=== PATIENT | male | born 1960 | race Hispanic/Latino ===

== ENCOUNTER 2018-04-23 17:30 | Emergency (ER) | payer BC, OTHER ==
--- NOTE | 2018-04-23 18:27 | ED PDOC ---
Arrival/HPI - General Chief Complaint: Bite Time Seen by Provider: 04/23/18 17:59 Historian: Patient - History of Present Illness Narrative History of Present Illness (Text): 04/23/18 18:20 A 57 year old male, whose past medical history includes scoliosis and left hip replacement, presents to the emergency department complaining of dog bites from approximately 2 days ago. Patient reports his dog was snapping at him. He slapped dog, and it bit him onto the right elbow 2 1/2 days ago, and the left foot 2 days ago. States he has had dog bites in the past and was last prescribed an ointment to heal wounds. Also, patient mentions a separate symptom of right buttock pain, requesting to be given Amoxicillin for pain. Notes he has not had an X-ray performed to check for any issues to location of pain. Patient denies any other complaints at this time. No PMD Past Medical History - Provider Review Nursing Documentation Reviewed: Yes - Cardiac Hx Cardiac Disorders: No - Pulmonary Hx Respiratory Disorders: No - Neurological Hx Neurological Disorder: No - HEENT Hx HEENT Disorder: No - Renal Hx Renal Disorder: No - Endocrine/Metabolic Hx Endocrine Disorders: No - Hematological/Oncological Hx Blood Disorders: No - Integumentary Hx Dermatological Disorder: No - Musculoskeletal/Rheumatological Hx Back Pain: Yes - Gastrointestinal Hx Gastrointestinal Disorders: No - Genitourinary/Gynecological Hx Genitourinary Disorders: No - Psychiatric Hx Substance Use: No - Surgical History Other/Comment: Lt Hip replacement - Anesthesia Hx Anesthesia: Yes Hx Anesthesia Reactions: Yes Family/Social History - Physician Review Nursing Documentation Reviewed: Yes Family/Social History: No Known Family HX Smoking Status: Former Smoker Hx Alcohol Use: Yes Frequency of alcohol use: Socially Hx Substance Use: No Allergies/Home Meds Allergies/Adverse Reactions: Allergies succinylcholine Allergy (Verified 04/23/18 18:02) PAIN Review of Systems - Physician Review All systems were reviewed & negative as marked: Yes - Review of Systems Constitutional: absent: Fevers Eyes: Normal ENT: Normal Respiratory: Normal Cardiovascular: Normal Gastrointestinal: Normal Genitourinary Male: Normal Musculoskeletal: Arthralgias. absent: Normal (r hip) Skin: Laceration (left foot and right elbow) Neurological: Normal Endocrine: Normal Hemo/Lymphatic: Normal Psychiatric: Normal Physical Exam Vital Signs Reviewed: Yes Vital Signs Temp Pulse Resp BP Pulse Ox 04/23/18 17:30 98 F 90 18 142/93 H 96 Temperature: Afebrile Blood Pressure: Normal Pulse: Regular Respiratory Rate: Normal Appearance: Positive for: Well-Appearing, Non-Toxic, Comfortable Pain Distress: None Mental Status: Positive for: Alert and Oriented X 3 - Systems Exam Head: Present: Atraumatic, Normocephalic Pupils: Present: PERRL Extroacular Muscles: Present: EOMI Conjunctiva: Present: Normal Neck: Present: Normal Range of Motion Respiratory/Chest: Present: Clear to Auscultation, Good Air Exchange. No: Respiratory Distress, Accessory Muscle Use Cardiovascular: Present: Regular Rate and Rhythm, Normal S1, S2. No: Murmurs Abdomen: No: Tenderness, Distention, Peritoneal Signs Upper Extremity: Present: Erythema (mild erythema to right elbow), Other (right elbow superficial laceration 1 cm by 2 cm, no tracking) Lower Extremity: Present: Erythema (mild erythema to left foot), Neurovascularly Intact, Other (laceration to dorsal aspect of left foot 2 cm by 1 cm, no visible tendons, no tracking; right leg bandaged from previous surgery ; right buttock point tenderness.) Neurological: Present: GCS=15, CN II-XII Intact, Speech Normal Skin: Present: Warm, Dry, Normal Color. No: Rashes Psychiatric: Present: Alert, Oriented x 3, Normal Insight, Normal Concentration Medical Decision Making ED Course and Treatment: 04/23/18 18:24 Impression: 57 year old male with dog bites to right elbow and left foot. Physical examination shows right elbow superficial laceration 1 cm by 2 cm, no tracking, mild erythema; abrasion to dorsal aspect of left foot 2 cm by 1 cm, no tracking. Pt notes dog has had full vaccinations including rabies. Right leg bandaged from previous surgery w/ good n/v status b/l, right buttock point tenderness. No cauda equina symptoms, no DM2 or drug use. Plan: -- Right Hip X-Ray -- Tylenol -- Reassess and disposition Progress Notes: Xray unremarkable, Pt walking well in NAD With VSS. clear for d/c home with followup and abx 04/23/18 23:53 - RAD Interpretation Radiology Orders: 04/23/18 18:23 Hip Right [HIP MIN 2V W/ PELVIS RT] [RAD] Stat - Medication Orders Current Medication Orders: Discontinued Medications Acetaminophen (Tylenol 325mg Tab) 650 mg PO STAT STA Stop: 04/23/18 18:25 Last Admin: 04/23/18 18:47 Dose: 650 mg MAR Pain/Vitals Document 04/23/18 18:47 LA (Rec: 04/23/18 18:48 LA [id number]) Pain Reassessment Is This A Pain ReAssessment? No Sleep Is patient sleeping during reassessment? No Presence of Pain Presence of Pain Yes Pain Scale Used Pain Scale Used Numeric Location Left, Right or Bilateral Right Pain Location Body Site Toe Pain Behavior Guarding - Scribe Statement The provider has reviewed the documentation as recorded by the Scribe Alysa Arambula Provider Scribe Attestation: All medical record entries made by the Scribe were at my direction and personally dictated by me. I have reviewed the chart and agree that the record accurately reflects my personal performance of the history, physical exam, medical decision making, and the department course for this patient. I have also personally directed, reviewed, and agree with the discharge instructions and disposition. Disposition/Present on Arrival - Present on Arrival Any Indicators Present on Arrival: No History of DVT/PE: No History of Uncontrolled Diabetes: No Urinary Catheter: No History of Decub. Ulcer: No History Surgical Site Infection Following: None - Disposition Have Diagnosis and Disposition been Completed?: Yes Diagnosis: Dog bite Disposition: HOME/ ROUTINE Disposition Time: 19:30 Patient Problems: Current Active Problems Problem Status Onset Dog bite Acute Condition: GOOD Discharge Instructions (ExitCare): Animal Bites (DC), Hip Pain Additional Instructions: [place]IR[place] LEON, thank you for letting us take care of you today. Your provider was Pantera Quiros and you were treated for DOG BITE. The emergency medical care you received today was directed at your acute symptoms. If you were prescribed any medication, please fill it and take as directed. It may take several days for your symptoms to resolve. Return to the Emergency Department if your symptoms worsen, do not improve, or if you have any other problems. Please contact your doctor or call one of the physicians/clinics you have been referred to that are listed on the Patient Visit Information form that is included in your discharge packet. Bring any paperwork you were given at discharge with you along with any medications you are taking to your follow up visit. Our treatment cannot replace ongoing medical care by a primary care provider outside of the emergency department. Thank you for allowing the [facility] team to be part of your care today. If you had an X-Ray or CT scan: A Radiologist will review the ED reading if any change in treatment is needed we will contact you. If you had a blood, urine, or wound culture: It will take several days for the results, if any change in treatment is needed we will contact you. If you had an STI test: It will take 48 hours for the results. Please call after 1 week if you have not heard back. Prescriptions: Amoxicillin/Clavulanate [Augmentin 875 MG-125 MG] 1 tab PO BID 7 Days #14 tab Forms: byyd (Yoruba)
[2018-04-23 18:30] VITALS: RESP 18; TEMP 98; BMI 28.8
[2018-04-24 01:08] VITALS: BP 130/78; PULSE 78; O2SAT 98
--- NOTE | 2018-04-24 10:43 | RAD ---
PROCEDURE: Right Hip Radiographs. HISTORY: right hip pain COMPARISON: None. FINDINGS: BONES: The pelvic ring is intact. No acute displaced fracture or dislocation. JOINTS: There is severe degenerative osteoarthrosis in the right hip joint with near complete loss of joint space and subarticular cystic changes. Status post left hip arthroplasty. SOFT TISSUES: Normal. OTHER FINDINGS: None. IMPRESSION: No acute displaced fracture or dislocation. Severe degenerative osteoarthrosis in the right hip joint.
== END 2018-04-23 20:25 | disposition home or self-care (01) ==
LOC: ED 17:30
DX: S51.051A Open bite, right elbow, initial encounter (principal); W54.0XXA Bitten by dog, initial encounter; Z87.891 Personal history of nicotine dependence

== ENCOUNTER 2018-05-05 16:22 | Inpatient (IN) | payer BC ==
[2018-05-05 16:23] VITALS: BMI 28.8
[2018-05-05] MEDS ORDERED: Morphine 4 mg/ml ISec IVP STA (16:52)
[2018-05-05] MEDS ORDERED: Sodium Chloride 0.9% 1,000 ML IV STA (16:52)
[2018-05-05 17:54] LABS: BASO # 0.02 K/mm3 (0.0-2.0); BASO % 0.1 % (0.0-3.0); EOS # 0.1 (0.0-0.7); EOS % 0.3 % (1.5-5.0); GRAN # 15.07 (1.4-6.5); GRAN % 84.2 % (50.0-68.0); HEMOGLOBIN 15.4 g/dL (14.0-18.0); LYMPH % 5.5 % (22.0-35.0); MEAN CELL VOLUME 82.7 fl (80.0-105.0); MEAN CORPUSCULAR HGB CONC 36.2 g/dl (31.0-37.0); MEAN PLATELET VOLUME 9.6 fl (7.0-11.0); MONO # 1.8 (0.1-0.6); MONO % 9.9 % (1.0-6.0); RBC 5.14 10^6/uL (3.5-6.1); RED CELL DISTRIBUTION WIDTH 13.2 % (11.5-14.5); WHITE BLOOD COUNT 17.9 10^3/ul (4.5-11.0)
[2018-05-05 18:15] LABS: ALB/GLOB RATIO 1.3 (1.1-1.8); ALBUMIN 4.3 g/dL (3.0-4.8); ALT/SGPT 54 U/L (7-56); AST/SGOT 37 U/L (17-59); BLOOD UREA NITROGEN 18 mg/dL (7-21); CALCIUM 9.1 mg/dL (8.4-10.5); GFR NON-AFRICAN AMERICAN > 60
[2018-05-05] MEDS ORDERED: Piperacill/Tazo 4.5gm in NS 4.5 GM/100 ML BAG IVPB STA (18:34)
--- NOTE | 2018-05-05 19:09 | ED PDOC ---
Arrival/HPI - General Chief Complaint: Lower Extremity Problem/Injury Time Seen by Provider: 05/05/18 16:23 Historian: Patient - History of Present Illness Narrative History of Present Illness (Text): 05/05/18 19:07 57 y/o M w/ h/o L hip replacement and recent R knee arthroscopy([facility]) presents to the ED for persistent R knee pain. The patient states he noted pain with active extension and weightbearing. The patient reports having recent right knee arthroscopy at [facility] which he was discharged yesterday. The patient reports feeling a palpable cord in his popliteal fossa as well as noted erythema and purulent discharge from his left thigh. He reports taking large doses of NSAIDs with minimal relief. He reports intermittent chills. He denies chest pain, shortness of breath, abdominal pain, back pain, weakness, numbness, syncopal episodes, or dizziness. PCP: None Time/Duration: Prior to Arrival Symptom Onset: Sudden Symptom Course: Intermittent Severity Level: Severe Activities at Onset: Rest Context: Home Past Medical History - Provider Review Nursing Documentation Reviewed: Yes - Travel History Have you recently traveled outside [place] w/in the past 3 mons?: No - Infectious Disease Hx of Infectious Diseases: None - Cardiac Hx Cardiac Disorders: No - Pulmonary Hx Respiratory Disorders: No - Neurological Hx Neurological Disorder: No - HEENT Hx HEENT Disorder: No - Renal Hx Renal Disorder: No - Endocrine/Metabolic Hx Endocrine Disorders: No - Hematological/Oncological Hx Blood Disorders: No - Integumentary Hx Dermatological Disorder: No - Musculoskeletal/Rheumatological Hx Back Pain: Yes - Gastrointestinal Hx Gastrointestinal Disorders: No - Genitourinary/Gynecological Hx Genitourinary Disorders: No - Psychiatric Hx Substance Use: No - Surgical History Other/Comment: Lt Hip replacement - Anesthesia Hx Anesthesia: Yes Hx Anesthesia Reactions: Yes Family/Social History - Physician Review Nursing Documentation Reviewed: Yes Family/Social History: Unknown Family HX Smoking Status: Former Smoker Hx Alcohol Use: Yes Hx Substance Use: No Allergies/Home Meds Allergies/Adverse Reactions: Allergies succinylcholine Allergy (Verified 04/23/18 18:02) PAIN Review of Systems - Physician Review All systems were reviewed & negative as marked: Yes - Review of Systems Musculoskeletal: Arthralgias, Joint Swelling, Myalgias. absent: Back Pain, Neck Pain Neurological: absent: Headache, Dizziness, Focal Weakness Physical Exam Vital Signs Temp Pulse Resp BP Pulse Ox 05/05/18 18:09 98.3 F 99 H 18 132/79 96 Temperature: Afebrile Blood Pressure: Normal Pulse: Regular Respiratory Rate: Normal Appearance: Positive for: Well-Appearing, Non-Toxic, Uncomfortable Pain Distress: Moderate Mental Status: Positive for: Alert and Oriented X 3 - Systems Exam Head: Present: Atraumatic, Normocephalic Mouth: Present: Moist Mucous Membranes Neck: Present: Normal Range of Motion. No: Meningeal Signs, MIDLINE TENDERNESS Respiratory/Chest: Present: Clear to Auscultation, Good Air Exchange. No: Respiratory Distress Cardiovascular: Present: Normal S1, S2, Tachycardic Abdomen: Present: Normal Bowel Sounds. No: Tenderness, Distention, Peritoneal Signs Upper Extremity: Present: Normal Inspection, Normal ROM, NORMAL PULSES Lower Extremity: Present: Edema, Tenderness, Swelling (edema to anterolateral knee ), Neurovascularly Intact. No: CALF TENDERNESS, Cyanosis Neurological: Present: GCS=15, CN II-XII Intact, Speech Normal Skin: Present: Warm, Dry, Other (Multiple excoriations noted to L thigh w/ purulent discharge) Medical Decision Making ED Course and Treatment: 05/05/18 19:17 Impression 57 y/o M w/ h/o R knee arthroscopy w/ R knee pain Differential Includes But Is Not Limited To: Septic Joint Meniscus Tear Sepsis Plan --Labs --CT extremity --CXR --Morphine --Zosyn --Reassess and disposition Progress Notes 05/05/18 19:18 Labs reviewed with leukocytosis of 17 noted and hyponatremia of 127 noted. Zosyn ordered. Patient is asleep in room with no acute complaints. Spoke to Dr. Shirley who accepts the patient onto his service. He requests Dr. Hansen(infectious disease) consulted. CT extremity pending. - Lab Interpretations Lab Results: 05/05/18 17:20 05/05/18 17:20 Lab Results 05/05/18 17:20: D-Dimer, Quantitative 584 H 05/05/18 17:20: Sodium 127 L, Potassium 4.1, Chloride 104, Carbon Dioxide 26, Anion Gap 2 L, BUN 18, Creatinine 0.6 L, Est GFR ( Amer) > 60, Est GFR ( Non-Af Amer) > 60, Random Glucose 138 H, Calcium 9.1, Total Bilirubin 2.8 H, AST 37, ALT 54, Alkaline Phosphatase 96, Total Protein 7.7, Albumin 4.3, Globulin 3.3, Albumin/Globulin Ratio 1.3 05/05/18 17:20: WBC 17.9 H, RBC 5.14, Hgb 15.4, Hct 42.5, MCV 82.7, MCH 30.0, MCHC 36.2, RDW 13.2, Plt Count 192, MPV 9.6, Gran % 84.2 H, Lymph % (Auto) 5.5 L , [place] % (Auto) 9.9 H, Eos % (Auto) 0.3 L, Baso % (Auto) 0.1, Gran # 15.07 H, Lymph # (Auto) 1.0 L, [place] # (Auto) 1.8 H, Eos # (Auto) 0.1, Baso # (Auto) 0.02 , ESR 36 H - RAD Interpretation Radiology Orders: 05/05/18 16:53 EXT LOWER W/O CONTRAST RIGHT [CT] Stat - Medication Orders Current Medication Orders: Discontinued Medications Sodium Chloride (Sodium Chloride 0.9%) 1,000 mls @ 999 mls/hr IV .Q1H1M STA Stop: 05/05/18 17:52 Last Admin: 05/05/18 17:32 Dose: 999 mls/hr eMAR Start Stop Document 05/05/18 17:32 GMD (Rec: 05/05/18 17:33 GMD [id number]) Intravenous Solution Start Date 05/05/18 Start Time 17:33 End Date 05/05/18 End time 18:33 Total Infusion Time 60 Piperacillin Sod/Tazobactam Sod (Zosyn 4.5 Gm In Ns 100ml) 4.5 gm in 100 mls @ 200 mls/hr IVPB STAT STA PRN Reason: Protocol Stop: 05/05/18 19:03 Morphine Sulfate (Morphine) 4 mg IVP STAT STA Stop: 05/05/18 16:53 Last Admin: 05/05/18 17:32 Dose: 4 mg MAR Pain Assessment Document 05/05/18 17:32 GMD (Rec: 05/05/18 17:32 GMD [id number]) Pain Reassessment Is this a pain reassessment? No IVP Administration Document 05/05/18 17:32 GM (Rec: 05/05/18 17:32 [facility] [id number]) Charges for Administration # of IVP Administrations 1 Disposition/Present on Arrival - Present on Arrival Any Indicators Present on Arrival: No History of DVT/PE: No History of Uncontrolled Diabetes: No Urinary Catheter: No History of Decub. Ulcer: No History Surgical Site Infection Following: None - Disposition Have Diagnosis and Disposition been Completed?: Yes Diagnosis: Knee pain Disposition: HOSPITALIZED Disposition Time: 19:17 Patient Plan: Admission Patient Problems: Current Active Problems Problem Status Onset Knee pain Acute Condition: STABLE
[2018-05-05] MEDS ORDERED: Morphine 4 mg/ml ISec IVP PRN (20:07)
[2018-05-05] MEDS ORDERED: Piperacillin/Tazobact 3.375 gm 100 ML IVPB SCH (20:15)
[2018-05-05] MEDS: Sodium Chloride 0.9% 500 ML IV SCH (21:07)
[2018-05-05] MEDS ORDERED: Iodixanol 320 MG/ML 100 ML BOTTLE IV ONE (21:44)
[2018-05-05] MEDS: Morphine 2 mg/ml ISec IVP PRN (22:39)
[2018-05-05] MEDS: Vancomycin 1gm in NS 250ml 1 GM/250 ML BAG IVPB SCH (23:48)
[2018-05-05] MEDS ORDERED: Morphine 2 mg/ml ISec IM STA (23:58)
--- NOTE | 2018-05-06 00:03 | CP.PCM.PN ---
<Rosa Mcgraw - Last Filed: 05/06/18 00:00> Subjective - Date & Time of Evaluation Date of Evaluation: 05/06/18 Time of Evaluation: 00:00 - Subjective Subjective: PGY-[address] Rodriguez 57 y/o M w/ h/o L hip replacement and recent R knee arthroscopy([facility]) admitted for persistent R knee pain. (+) erythema and purulent discharge from his left thigh. Morphine 2mg was given 1 hour ago without adequate relieve. pt states 10/10 pain PE: (+) pedal pulses b/l A/P: Intractable pain. WIll give morphine 2mg stat Objective - Vital Signs/Intake and Output Vital Signs (last 24 hours): Temp Pulse Resp BP Pulse Ox 98.3 F 99 H 18 132/79 96 05/05/18 18:09 05/05/18 18:09 05/05/18 18:09 05/05/18 18:09 05/05/18 18:09 - Medications Medications: Current Medications Doxycycline Hyclate (Doryx) 100 mg PO Q12 PINA PRN Reason: Protocol Stop: 05/14/18 22:01 Last Admin: 05/05/18 23:47 Dose: 100 mg Enoxaparin Sodium (Lovenox) 40 mg SC DAILY PINA PRN Reason: Protocol Sodium Chloride (Sodium Chloride 0.9%) 500 mls @ 40 mls/hr IV .[id number] [facility] Last Admin: 05/05/18 21:07 Dose: 40 mls/hr Ceftriaxone Sodium (Rocephin 1 Gram Ivpb) 1 gm in 100 mls @ 100 mls/hr IVPB DAILY PINA PRN Reason: Protocol Stop: 05/13/18 10:01 Vancomycin HCl (Vancomycin 1gm) 1 gm in 250 mls @ 167 mls/hr IVPB Q12H PINA PRN Reason: Protocol Stop: 05/14/18 20:16 Last Admin: 05/05/18 23:48 Dose: 167 mls/hr Morphine Sulfate (Morphine) 2 mg IVP Q3H PRN PRN Reason: Pain, moderate (4-7) Last Admin: 05/05/18 22:39 Dose: 2 mg Morphine Sulfate (Morphine) 2 mg IM STAT STA Stop: 05/05/18 23:59 <Jennifer,Ruby - Last Filed: 05/06/18 06:07> Objective - Vital Signs/Intake and Output Vital Signs (last 24 hours): Temp Pulse Resp BP Pulse Ox 98.4 F 135 H 20 161/101 H 100 05/06/18 00:54 05/06/18 04:59 05/06/18 00:54 05/06/18 00:54 05/05/18 23:00 - Medications Medications: Current Medications Doxycycline Hyclate (Doryx) 100 mg PO Q12 PINA PRN Reason: Protocol Stop: 05/14/18 22:01 Last Admin: 05/05/18 23:47 Dose: 100 mg Enoxaparin Sodium (Lovenox) 40 mg SC DAILY PINA PRN Reason: Protocol Sodium Chloride (Sodium Chloride 0.9%) 500 mls @ 40 mls/hr IV .[id number] PINA Last Admin: 05/05/18 21:07 Dose: 40 mls/hr Ceftriaxone Sodium (Rocephin 1 Gram Ivpb) 1 gm in 100 mls @ 100 mls/hr IVPB DAILY PINA PRN Reason: Protocol Stop: 05/13/18 10:01 Vancomycin HCl (Vancomycin 1gm) 1 gm in 250 mls @ 167 mls/hr IVPB Q12H PINA PRN Reason: Protocol Stop: 05/14/18 20:16 Last Admin: 05/05/18 23:48 Dose: 167 mls/hr Morphine Sulfate (Morphine) 2 mg IVP Q3H PRN PRN Reason: Pain, moderate (4-7) Last Admin: 05/06/18 04:00 Dose: 2 mg Attending/Attestation - Attestation I have personally seen and examined this patient.: Yes I have fully participated in the care of the patient.: Yes I have reviewed all pertinent clinical information, including history, physical exam and plan: Yes Notes (Text): 05/06/18 06:04 pt seen with resident. Agree with documentation and treatment plan.
[2018-05-06] MEDS ORDERED: Morphine 2 mg/ml ISec IVP STA (00:43)
[2018-05-06] MEDS: Morphine 2 mg/ml ISec IVP PRN ×4 (04:00→16:04)
[2018-05-06 06:55] LABS: HEMOGLOBIN 13.6 g/dL (14.0-18.0); MEAN CELL VOLUME 83.8 fl (80.0-105.0); MEAN CORPUSCULAR HGB CONC 34.6 g/dl (31.0-37.0); MEAN PLATELET VOLUME 10.1 fl (7.0-11.0); RBC 4.69 10^6/uL (3.5-6.1); RED CELL DISTRIBUTION WIDTH 13.4 % (11.5-14.5)
[2018-05-06 07:21] LABS: ALB/GLOB RATIO 1.1 (1.1-1.8); ALBUMIN 3.5 g/dL (3.0-4.8); ALT/SGPT 48 U/L (7-56); AST/SGOT 47 U/L (17-59); BLOOD UREA NITROGEN 18 mg/dL (7-21); CALCIUM 8.6 mg/dL (8.4-10.5); GFR NON-AFRICAN AMERICAN > 60
[2018-05-06] MEDS ORDERED: MethylPREDNISolone Depo 40 mg/ml Inj IM ONE (07:40)
[2018-05-06] MEDS ORDERED: Bupivacaine 0.5% Inj(30mL) IJ ONE (07:40)
[2018-05-06 08:13] LABS: FLUID TYPE SYNOVIAL FLUID
[2018-05-06 08:41] LABS: SF GROSS APPEARANCE CLOUDY (CLEAR)
[2018-05-06 08:42] LABS: SYNOVIAL FLUID MONO/MACROPHAGE 0 % (0-0)
--- NOTE | 2018-05-06 09:41 | HP ---
Copied To: Rogelio Shirley DO Attending MD: Rogelio Shirley DO HISTORY OF PRESENT ILLNESS: I was called down to the Emergency Room to look at Ray. He is a 57-year-old white man with an extensive lower extremity history. He is a 57-year-old white male with history of left hip replacement, recent right knee arthroscopy at [facility], presented to the Emergency Room with persistent right knee pain. He noted the pain with active extension and weight bearing. He is having recent right knee arthroscopy at [facility]. He was discharged yesterday. He feels a palpable cord on his popliteal fossa. He also noted erythema and purulent discharge from his left thigh. He took large doses of NSAIDs with minimal relief of his pain. He is having intermittent chills. No shortness of breath or chest pain. This is a sudden onset. He feels severe pain. He has back pain and left hip replacement. He has had multiple procedures of vascular issues of both lower extremities. FAMILY HISTORY: Unknown. SOCIAL HISTORY: Former smoker. No alcohol. No drugs. ALLERGIES: HE IS ALLERGIC TO SUCCINYLCHOLINE. REVIEW OF SYSTEMS: No acute vision or hearing changes. No sore throat. No chest pain or palpitations. No shortness of breath or cough. No abdominal pain. He has bilateral lower extremity pain. Severe right knee pain. He has arthralgias, joint swelling, myalgias, the right leg is more swollen than the left. He states multiple veins removed from both lower extremities. No headache, dizziness, or focal weakness. No chest pain or shortness of breath. PHYSICAL EXAMINATION: VITAL SIGNS: He has a 98.3 temperature, 99 pulse, 18 respiratory rate, 132/79 blood pressure, 96% O2 saturation on room air. GENERAL: He is well appearing, he is a little bit toxic, very uncomfortable, moderate distress, alert and oriented x3. HEENT: Head is atraumatic and normocephalic. Mucous membranes are dry. NECK: Supple. HEART: Regular rate. Normal S1 and S2, bit tachycardic. LUNGS: Decreased breath sounds, but clear to auscultation with poor inspiration. No wheezes, rhonchi, or rales. ABDOMEN: Soft, nontender, positive bowel sounds. No guarding. No rebound. No CVA tenderness. EXTREMITIES: Both lower extremities are swollen, the right one is +4, left one is +2. He has edema to the left posterior knee, edema to the right knee and the right leg. He has +4/4 pitting edema to the ankles, the left is +1/4 pitting edema of ankle. No calf tenderness. NEUROLOGIC: GCS is 15. Cranial nerves II through XII are grossly intact. Normal speech. SKIN: Multiple excoriations to bilateral lower extremities. The left thigh has got purulent discharge. It looks like septic joint, meniscus tear, sepsis. LABORATORY DATA: He had multiple tests done. He has a 17.9 white count, 15.4 hemoglobin, 42.5 hematocrit with 192 platelets. He has sodium of 127, potassium 4.1, chloride 104, carbon dioxide 26, BUN 18, creatinine 0.6, GFR is greater than 60, sugar is 138, calcium is 9.1. Total bilirubin is 2.8, AST is 37, ALT is 54, alkaline phosphatase is 96, total protein is 7.7, albumin is 4.3. ESR is 36. D-dimer is 584, quite high. He has a pending CAT scan of the chest, with an elevated D-dimer, the CT angio to make sure there is no left pulmonary embolus. He has also an extremity right of the knee for swelling CAT scan. MEDICATIONS: He will be on doxycycline, Lovenox, morphine, Rocephin, IV fluids, and vancomycin. IMPRESSION AND PLAN: He will have a consult with Infectious Disease and orthopedic evaluation. We will check his labs tomorrow. IV antibiotics. We think he has a septic joint. Elevated white count. Swelling of the knee, pus on the hip. Rogelio Shirley DO
--- NOTE | 2018-05-06 09:52 | CT ---
Date of service: 05/05/18 CTA chest PE protocol Indication: Positive D-dimer Technique: Contiguous axial images were obtained through the chest with intravenous contrast enhancement. Sagittal and coronal reconstructions were generated and reviewed. This CT exam was performed using 1 or more of the following dose reduction techniques: Automated exposure control, adjustment of the MAA and/or kV according to patient size, and/or use of iterative reconstruction technique. IV Contrast: 100 mL Visipaque IV Radiation dose (DLP): 462.12 MGy-cm. Comparison: None available Findings: Visualized portions of the inferior thyroid gland appear unremarkable. The mediastinal and hilar vascular structures appear within normal limits. Cardiomegaly. There is suboptimal opacification of the pulmonary arteries due to missed bolus of the intravenous contrast limiting evaluation for pulmonary embolus. Given this limitation, there are no visible intraluminal filling defects within the central pulmonary arteries to suggest central pulmonary embolism. Hypoinflation. No focal consolidation. No pleural effusion. No pneumothorax. Scattered ill-defined pulmonary nodules. Scattered mild bilateral infiltrates involving upper to mid lung zones predominantly. Bilateral gynecomastia. Limited visualized portions of the upper abdomen: Cholelithiasis. Incompletely imaged dilated gallbladder. Hypoattenuation of the liver compatible with hepatic steatosis. 11 mm left adrenal gland nodule, 65 HU ; indeterminate. Shotty nonspecific mediastinal lymph nodes. Degenerative changes of the spine. Kyphosis. Impression: There is suboptimal opacification of the pulmonary arteries due to missed bolus of the intravenous contrast limiting evaluation for pulmonary embolus. Given this limitation, there are no visible intraluminal filling defects within the central pulmonary arteries to suggest central pulmonary embolism. Scattered ill-defined pulmonary nodules. According to the 2017 Fleischner criteria,, if the patient is low risk, no routine follow-up is recommended. If the patient is high risk, optional CT at 12 months is recommended. Hypoinflation. Scattered mild bilateral infiltrates involving upper to mid lung zones predominantly. Cardiomegaly. Indeterminate left adrenal gland nodule. Dedicated cross-sectional imaging recommended for further evaluation if indicated. Partially imaged dilated gallbladder. Punctate gallstone evident. Recommend right upper quadrant ultrasound if indicated. Additional findings as above. Preliminary impression was provided by virtual radiologic. Study has been marked for PA review.
[2018-05-06] MEDS ORDERED: TENOFOVIR DISOPROXIL PO SCH (10:00)
[2018-05-06] MEDS ORDERED: Enoxaparin 30 mg Syringe SC SCH (10:00)
[2018-05-06] MEDS ORDERED: EMTRICITABINE PO SCH (10:00)
[2018-05-06] MEDS: Enoxaparin 40 mg Syringe SC SCH (10:03)
[2018-05-06] MEDS: cefTRIAXone 1 gm 1 GM/100 ML BAG IVPB SCH (10:07)
[2018-05-06] MEDS: Vancomycin 1gm in NS 250ml 1 GM/250 ML BAG IVPB SCH ×2 (10:07→21:18)
[2018-05-06] MEDS: TENOFOVIR DISOPROXIL PO SCH (10:08)
[2018-05-06] MEDS: EMTRICITABINE PO SCH (10:08)
--- NOTE | 2018-05-06 11:42 | PN ---
Copied To: Rogelio Shirley DO Attending MD: Rogelio Shirley DO DATE: 05/06/2018 SUBJECTIVE: He is resting comfortably in bed. He is upset with the orthopedic doctor. He is doing better than yesterday. The morphine is helping his pain in his legs. He was given a needle by the orthopedic doctor to help the pain in the knee. He now tells me he is HIV positive, he did not tell me that last night when I asked him about his medical history and he did not know his medications last night, he would tell me that he takes medications for HIV or blood pressure, but I will re-up his medications. He is eating well. PHYSICAL EXAMINATION: VITAL SIGNS: He has 98.4 temp, 135 pulse, 161/101 blood pressure, 20 respiratory rate, 100% O2 sat on room air. I gave him some metoprolol and Norvasc. HEENT: His head is atraumatic, normocephalic. HEART: Very tachy, regular rate. LUNGS: Decreased breath sound, but clear. ABDOMEN: Soft. EXTREMITIES: Have swelling, but a little bit better and achiness and the pus coming out of his wound. MEDICATIONS: He is on IV antibiotics. He is on Doryx, Lovenox, morphine, Rocephin, IV fluids, and vancomycin IV from Infectious Disease. LABORATORY DATA: His white count went from 17.9 down to 16, still high; hemoglobin 13.6; hematocrit 39.3; platelets are 179. His D-dimer is 584. He has 140 sodium, which is better than 127, when he came in it was low; potassium is 3.7. BUN 18, creatinine 0.6, GFR is greater than 60, sugar is 122 and better, calcium is 8.6, total bili is 1.8 and better. AST is 47, ALT is 48, alk phos 82, total protein is 6.6 and we have synovial fluid pending from aspiration, looking for septic joint. CAT scan of the chest is pending because he had elevated D-dimer and the lower extremity CT is also pending. I put him back on his medications for his HIV and also Norvasc for his hypertension. I will add metoprolol. He is on IV antibiotics, I believe he is having a septic joint with HIV. He was given a Depo-Medrol shot in the knee. I have put him back on his Elavil, Isentress, Truvada, Norvasc and I will add metoprolol to help with his pulse, which is quite fast. If that does not get it down, I will call in Cardiology. Rogelio Shirley DO
--- NOTE | 2018-05-06 12:51 | CT ---
Date of service: 05/05/2018 PROCEDURE: CT of the right lower extremity without contrast HISTORY: recent surgery w/ persistent knee pain COMPARISON: TECHNIQUE: Radiation dose: Total exam DLP = 344 mGy-cm. This CT exam was performed using one or more of the following dose reduction techniques: Automated exposure control, adjustment of the mA and/or kV according to patient size, and/or use of iterative reconstruction technique. FINDINGS: There is a large joint effusion. There is some layering of debris within the effusion. There is also a Cox's cyst with surrounding subcutaneous edema which may represent a ruptured Cox cyst. There is no evidence of fracture The report concurs with the preliminary [facility] report IMPRESSION: Large joint effusion and probable ruptured Cox cyst. No evidence of fracture
--- NOTE | 2018-05-06 14:01 | CON ---
Copied To: Fam Webb DO Attending MD: Fam Webb DO DATE: 05/06/2018 ORTHOPEDIC CONSULT HISTORY: A 57-year-old male. seen as a consult for right knee pain. He has intense effusion of his right knee for approximately 24 to 48 hours. 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 So, we aspirated the fluid of his right knee, took out 60 mL of yellowish serous fluid, not purulent and looks more consistency of cloudy fluid, but not signs of an infection. So, we expressed 60 mL. I irrigated out with 10 mL of normal saline and injected Depo-Medrol and Marcaine. We will wait for the culture, cell count, crystals to come back and will see if it re-accumulates. We only have to go to surgery if it is an infection. FINAL DIAGNOSIS: Effusion right knee. X-rays do not show arthritis and will wait for the culture, cell count, crystal analysis to return. Evaluate for inflammatory arthritis versus infection. Fam Webb DO MTDD
[2018-05-06] MEDS ORDERED: Morphine 2 mg/ml ISec IVP PRN (18:05)
[2018-05-06] MEDS: Morphine 4 mg/ml ISec IVP PRN ×2 (18:12→21:18)
--- NOTE | 2018-05-06 19:57 | CON ---
Copied To: Herb Shell MD Attending MD: Herb Shell MD DATE: 05/06/2018 CHIEF COMPLAINT: Right knee pain times since Friday, actually he had it longer than that. HISTORY OF PRESENT ILLNESS: This is a 57-year-old male who has a history of scoliosis, history of left hip replacement, positive HIV, undetectable HIV viral load with very good T-cells, who was in the emergency room because of a dog bite that was on 04/23, and returned to the Emergency Room yesterday and seen by , ER doctor who states the patient had a right knee arthroscopy at [facility] recently, which is not accurate. The patient did not have any knee arthroscopy. He had a varicose vein surgery on that leg and it was 2 days ago, Friday, today is Friday and the patient had been having right knee pain and again, the patient states that he did not have right knee arthroscopy at [facility]. It was varicose vein surgery, did not have knee surgery, now presenting with knee pain with no fevers, no chills, no nausea, no vomiting, no chest pain. PAST MEDICAL HISTORY: Significant for HIV with good T-cells, hypertension, and chronic back pain. PAST SURGICAL HISTORY: Significant for left hip surgery and the recent surgery 2 days ago on the varicose veins. MEDICATIONS: Include Truvada, raltegravir/Isentress, Elavil, and amlodipine. He has been compliant with his HIV medications. His viral load is undetectable. His T-cells are very good over 700 as per the patient. He used to see Mary Kate at [facility]. ALLERGIES: THE PATIENT HAS ALLERGIES TO SUCCINYLCHOLINE. PHYSICAL EXAMINATION: GENERAL: The patient is in bed, somewhat anxious, concerned about his health. VITAL SIGNS: Temperature of 98, heart rate of 97, blood pressure 160/101, respiratory rate of 18. HEENT: Unremarkable. NECK: Supple. LUNGS: Clear. HEART: Normal S1, S2. ABDOMEN: Soft. No rebound, no guarding, no masses. EXTREMITIES: Examination of the right knee, it is tender, it is swollen. He has full range of the right knee, although with some pain. LABORATORY EXAMINATION: Reveals a white count of 17,900, hemoglobin of 15, platelets of 192. Sed rate is 36. Coagulation is noted. The D-dimer is 584. BUN of 18, creatinine of 0.6. Glucose is 138. Bilirubin is 2.8. The patient had a CAT scan of the knee, the results are not available and CAT scan of the chest. Dr. Rodrgiuez's note is reviewed. ASSESSMENT AND PLAN: A 57-year-old male who is positive for human immunodeficiency virus, on Truvada and Isentress with undetectable viral load, good T-cells, who has a scoliosis, low back pain, hypertension, who presents with the right knee pain times several days with leukocytosis and tachycardia and the patient also has two dogs, although he states that he does not go into the [place] area, [place] or [place]. 1. Systemic inflammatory response syndrome, must rule out right knee septic arthritis. We will start the patient empirically on vancomycin, ceftriaxone, doxycycline, and pending CAT scan results and synovial fluid evaluation. I have talked to Dr. Webb for culture, Gram stain, crystals, and cell count. Lyme is also in the differential diagnosis because of his two dogs in addition to septic arthritis. In addition, we are concerned about pneumococcal septic arthritis versus Gram-negative, Escherichia coli Klebsiella, Enterobacter, less likely Pseudomonas and versus Lyme, unlikely to be reactive arthritis and acute monoarticular. The patient states that he has girlfriend and sexually transmitted diseases in the differential diagnosis. Although, he states he has two girlfriends at times. We will order Chlamydia, gonorrhea workup, RPR and FTA. We will make further recommendations upon availability of initial results. The patient has multiple sexual partners. Must rule out sexually transmitted disease related septic joint. Herb Shell MD
[2018-05-06] MEDS: Sodium Chloride 0.9% 500 ML IV SCH (21:30)
[2018-05-07] MEDS: Morphine 4 mg/ml ISec IVP PRN ×7 (00:32→23:49)
[2018-05-07] MEDS ORDERED: Morphine 2 mg/ml ISec IVP STA (02:01)
[2018-05-07 06:48] LABS: HEMOGLOBIN 13.4 g/dL (14.0-18.0); MEAN CELL VOLUME 83.4 fl (80.0-105.0); MEAN CORPUSCULAR HEMOGLOBIN 29.3 pg (25.0-35.0); MEAN CORPUSCULAR HGB CONC 35.1 g/dl (31.0-37.0); MEAN PLATELET VOLUME 9.9 fl (7.0-11.0); RBC 4.58 10^6/uL (3.5-6.1); RED CELL DISTRIBUTION WIDTH 13.7 % (11.5-14.5); WHITE BLOOD COUNT 15.3 10^3/ul (4.5-11.0)
[2018-05-07 07:08] LABS: ALB/GLOB RATIO 1.1 (1.1-1.8); ALBUMIN 3.4 g/dL (3.0-4.8); ALT/SGPT 59 U/L (7-56); AST/SGOT 126 U/L (17-59); BLOOD UREA NITROGEN 20 mg/dL (7-21); CALCIUM 8.4 mg/dL (8.4-10.5); GFR NON-AFRICAN AMERICAN > 60
--- NOTE | 2018-05-07 09:37 | CARD ---
APPROVED REPORT Date of service: 05/05/2018 EKG Measurement Heart [id number] <Conclusion> Sinus tachycardia. Borderline 1st degree AVB. LAD PRWP
[2018-05-07] MEDS: EMTRICITABINE PO SCH (10:00)
[2018-05-07] MEDS: TENOFOVIR DISOPROXIL PO SCH (10:00)
[2018-05-07] MEDS: Enoxaparin 40 mg Syringe SC SCH (10:31)
--- NOTE | 2018-05-07 10:38 | PN ---
Copied To: Rogelio Shirley DO Attending MD: Rogelio Shirley DO DATE: 05/07/2018 SUBJECTIVE: I saw him resting comfortable in bed this morning. Now, he tells me his left shoulder hurts, the left rib hurts. He is having chest pain when he made a sudden movement, then it starts to hurt him. He wants to get x-rays. He is also still upset about Dr. Webb and he is just upset about being in the hospital and the stay here. MEDICATIONS: He is currently on Doryx, Elavil, Isentress, Lopressor, Lovenox, morphine, Norvasc, Rocephin, IV fluids, Truvada and vancomycin IV. PHYSICAL EXAMINATION: VITAL SIGNS: He has a 98.1 temp, 102 pulse, 152/92 blood pressure, 18 respiratory rate, 94% O2 sat. HEENT: His head is atraumatic, normocephalic. HEART: Regular rate. LUNGS: Decreased breath sounds, but clear. ABDOMEN: Soft. EXTREMITIES: No edema. He can move his left shoulder. It is hard for him to take a deep breath without pain. He is very comfortable at that time, although the nurse tells me he is in a lot of pain. He was getting pain medications around the clock, but when I saw him he had no pain. LABORATORY DATA: His white count is down to 15.3, it was as high as 17.9; hemoglobin 13.4; hematocrit 38.2; platelets of 216. He has a 142 sodium, potassium 4.3, BUN 20, creatinine 0.6, GFR is greater than 60, sugar is 133, calcium is 8.4, AST is 126, ALT is 59, alk phos is 81 and C-reactive protein is 201.4, extremely high. Synovial fluid has white count of 36,000. Definitely a lot of pus in the knee. He has a nonreactive RPR. Lyme was negative. No growth in blood culture and in the synovial fluid, it is pending. ASSESSMENT AND PLAN: He is being seen by Infectious Disease, Orthopedics. He has got human immunodeficiency virus, undetectable viral load with T-cells, scoliosis, low back pain, hypertension, right knee pain, leukocytosis, tachycardia. He has systemic inflammatory response syndrome. Ruling out right knee septic arthritis. He is on vancomycin, Rocephin and doxycycline. Waiting for the evaluation from the fluid withdrawal by Orthopedics. We will continue with the aggressive treatment and care and waiting for his white count to get below 10. Also, there was pus in his knee. No central pulmonary embolism on the CAT scan angio. There are pulmonary nodules. Recommended CT scan in 12 months. We will continue with IV antibiotics as per Infectious Disease. Check his x-rays to make sure his bones are okay. Rogelio Shirley DO
--- NOTE | 2018-05-07 11:24 | PN ---
Copied To: Herb Shell MD Attending MD: Herb Shell MD DATE: 05/07/2018 SUBJECTIVE: The patient is seen in room 377, bed 2. He is doing better today and less upset. No fevers. Knee pain is improved. PHYSICAL EXAMINATION: VITAL SIGNS: Temperature is 98, T-max is 100.9, respiratory rate of 18, heart rate of 102. HEENT: Examination of HEENT is unremarkable. NECK: Supple. LUNGS: Have decreased breath sounds. HEART: Normal S1 and S2. ABDOMEN: Soft, nontender. LABORATORY DATA: Laboratory examination reveals a white count of 15,000, hemoglobin of 13 and platelets of 216. Chemistries are noted. C-reactive protein is 201. The synovial fluid has 36,725 wbc's, 94% of neutrophils. The RPR is negative. The Lyme serology is negative. Microbiology reveals the patient's Gram stain shows rare gram-positive cocci. The cultures are pending. The blood cultures, there are no growth. The pathology from the joint fluid evaluation and cytology reveals the patient is negative for uric acid, numerous pus cells, few calcium, pyrophosphate crystals. ASSESSMENT AND PLAN: A 57-year-old male with scoliosis and a history of left hip replacement, positive human immunodeficiency virus with good T-cells and undetectable viral load as per the patient, who is admitted now with what appears to be a systemic inflammatory response syndrome with probable septic arthritis with a gram-positive cocci on Gram stain and on vancomycin, Rocephin and doxycycline. Awaiting for culture results and initial workup results. We will follow closely with you. Case discussed with the patient at length. Dr. Rogelio Shirley's note is reviewed. Herb Shell MD
--- NOTE | 2018-05-07 13:26 | RAD ---
Date of service: 05/07/2018 PROCEDURE: CHEST RADIOGRAPH, 1 VIEW HISTORY: pain COMPARISON: None available. FINDINGS: LUNGS: Elevated right hemidiaphragm with likely linear atelectasis or fibrosis inferior right lung zone. No alveolitis bilaterally. PLEURA: No pneumothorax or pleural fluid seen. CARDIOVASCULAR: Normal. OSSEOUS STRUCTURES: No significant abnormalities. VISUALIZED UPPER ABDOMEN: Normal. OTHER FINDINGS: None. IMPRESSION: Elevated right hemidiaphragm. Linear atelectasis or fibrosis right base with left lung unremarkable. No acute cardiovascular changes.
--- NOTE | 2018-05-07 13:44 | RAD ---
Date of service: 05/07/2018 PROCEDURE: Radiographs of the Left Shoulder HISTORY: pain COMPARISON: No prior. FINDINGS: BONES: Normal. No fracture. JOINTS: Normal. Glenohumeral and acromioclavicular joints preserved. No osteoarthritis. SOFT TISSUES: Normal. OTHER FINDINGS: None. IMPRESSION: Normal radiographs of the left shoulder.
--- NOTE | 2018-05-07 15:00 | RAD ---
Date of service: 05/07/2018 PROCEDURE: Left ribs HISTORY: pain COMPARISON: TECHNIQUE: Five views FINDINGS: No evidence of rib fracture or pneumothorax IMPRESSION: Negative study
[2018-05-07] MEDS: Vancomycin 1gm in NS 250ml 1 GM/250 ML BAG IVPB SCH (21:47)
[2018-05-07] MEDS: Sodium Chloride 0.9% 500 ML IV SCH (22:30)
[2018-05-08] MEDS: Morphine 4 mg/ml ISec IVP PRN ×5 (03:01→22:21)
[2018-05-08 07:11] LABS: ALB/GLOB RATIO 1.1 (1.1-1.8); ALBUMIN 3.8 g/dL (3.0-4.8); ALT/SGPT 60 U/L (7-56); AST/SGOT 84 U/L (17-59); BLOOD UREA NITROGEN 16 mg/dL (7-21); CALCIUM 8.9 mg/dL (8.4-10.5); GFR NON-AFRICAN AMERICAN > 60
[2018-05-08 07:17] LABS: HEMOGLOBIN 14.6 g/dL (14.0-18.0); MEAN CELL VOLUME 84.4 fl (80.0-105.0); MEAN CORPUSCULAR HEMOGLOBIN 29.2 pg (25.0-35.0); MEAN CORPUSCULAR HGB CONC 34.6 g/dl (31.0-37.0); MEAN PLATELET VOLUME 9.8 fl (7.0-11.0); RED CELL DISTRIBUTION WIDTH 13.5 % (11.5-14.5); WHITE BLOOD COUNT 11.9 10^3/ul (4.5-11.0)
[2018-05-08] MEDS: cefTRIAXone 1 gm 1 GM/100 ML BAG IVPB SCH ×3 (10:27→14:08)
[2018-05-08] MEDS: Enoxaparin 40 mg Syringe SC SCH (10:40)
[2018-05-08] MEDS: EMTRICITABINE PO SCH (10:41)
[2018-05-08] MEDS: TENOFOVIR DISOPROXIL PO SCH (10:41)
[2018-05-08] MEDS: Vancomycin 1gm in NS 250ml 1 GM/250 ML BAG IVPB SCH ×4 (10:42→21:05)
--- NOTE | 2018-05-08 12:48 | PN ---
Copied To: Rogelio Shirley DO Attending MD: Rogelio Shirley DO DATE: 05/08/2018 SUBJECTIVE: I saw him in bed. He is talking to me all about his right leg with pain and needing more pain medications, although, he is improving. He is eating well, still complains with Dr. Webb in the right calf. He has 11.9 white count, 14.6 hemoglobin, 42.2 hematocrit with 261 platelets. Sodium 140, potassium 4.1, BUN 16, creatinine 0.5, GFR is greater than 60, sugar is 136, calcium is 8.9, total bili is 0.8, AST is 84, ALT is 60, alkaline phosphate 98, total protein 7.3. C-reactive protein is high at 201.4. RPR is nonreactive. FTA-ABS is nonreactive and Lyme is less than 0.9. PHYSICAL EXAMINATION: HEENT: His head is atraumatic, normocephalic. HEART: Regular rate. LUNGS: Decreased breath sounds, but clear. ABDOMEN: Soft, nontender. EXTREMITIES: The right knee is still swollen. The right calf is swollen. He has gram-positive cocci in clusters. He is on doxycycline, Elavil, Isentress, Lopressor, Lovenox, morphine, Norvasc, Rocephin, IV fluids, Truvada, Ultram, vancomycin IV. He had a shoulder x-ray, rib x-ray, chest x-ray which were all of his complaints the other day and he did well with immunotherapy, antibiotics, getting out of bed to chair. I am going to do a venous Doppler of his right lower extremity. I will continue aggressive treatment and care on Samuel Bell as per Infectious Disease with IV antibiotics for his septic joint. Rogelio Shirley DO
[2018-05-08 14:11] LABS: FLUID TYPE SYNOVIAL FLUID
[2018-05-08 14:40] LABS: SF GROSS APPEARANCE CLOUDY (CLEAR); SYNOVIAL FLUID MONO/MACROPHAGE 0 % (0-0)
[2018-05-08] MEDS: Sodium Chloride 0.9% 500 ML IV SCH (17:48)
--- NOTE | 2018-05-08 21:54 | PN ---
Copied To: Herb Shell MD Attending MD: Herb Shell MD DATE: 05/08/2018 SUBJECTIVE: The patient is in bed, in no acute distress, nontoxic. PHYSICAL EXAMINATION: VITAL SIGNS: Temperature is 99, blood pressure is 140/100, respiratory rate of 22, heart rate of 103. HEENT: Unremarkable. NECK: Supple. LUNGS: Have decreased breath sounds. HEART: Normal S1, S2. ABDOMEN: Soft, nontender. LABORATORY EXAMINATION: Reveals a white count of 11,900, hemoglobin of 14. Chemistries reveals a BUN of 16, creatinine of 0.5. The LFTs are elevated and RPR is nonreactive. Synovial fluid is MRSA. Blood cultures are negative. Urine cultures are negative. Heavy growth of MRSA sensitive to clindamycin, sensitive to linezolid and vancomycin. REX of 1 sensitive to tetracycline. Review of orders reveals the patient to be on vancomycin. The patient is also on his HIV medication Isentress and Truvada. Case discussed with Dr. Webb regarding the open drainage. ASSESSMENT AND PLAN: A 57-year-old male who has history of human immunodeficiency virus, history of scoliosis, who is admitted now with sepsis with septic arthritis with methicillin-resistant Staphylococcus aureus, on vancomycin for open drainage or minimal aspiration. We will continue the vancomycin, should have a vancomycin trough level. We will follow closely with you. Herb Shell MD
[2018-05-09] MEDS: Morphine 4 mg/ml ISec IVP PRN ×2 (04:14→18:41)
[2018-05-09 07:33] LABS: HEMOGLOBIN 14.8 g/dL (14.0-18.0); MEAN CELL VOLUME 83.6 fl (80.0-105.0); MEAN CORPUSCULAR HEMOGLOBIN 29.2 pg (25.0-35.0); MEAN PLATELET VOLUME 9.8 fl (7.0-11.0); RBC 5.06 10^6/uL (3.5-6.1); RED CELL DISTRIBUTION WIDTH 13.3 % (11.5-14.5); WHITE BLOOD COUNT 10.9 10^3/ul (4.5-11.0)
[2018-05-09 07:49] LABS: ALBUMIN 3.7 g/dL (3.0-4.8); ALT/SGPT 59 U/L (7-56); AST/SGOT 45 U/L (17-59); BLOOD UREA NITROGEN 17 mg/dL (7-21); CALCIUM 8.9 mg/dL (8.4-10.5); GFR NON-AFRICAN AMERICAN > 60
[2018-05-09] MEDS: Vancomycin 1gm in NS 250ml 1 GM/250 ML BAG IVPB SCH ×2 (09:49→21:26)
[2018-05-09] MEDS: Enoxaparin 40 mg Syringe SC SCH (09:49)
[2018-05-09] MEDS: TENOFOVIR DISOPROXIL PO SCH (10:00)
[2018-05-09] MEDS: EMTRICITABINE PO SCH (10:00)
--- NOTE | 2018-05-09 10:03 | PN ---
Copied To: Herb Shell MD Attending MD: Herb Shell MD DATE: 05/09/2018 SUBJECTIVE: The patient is seen in bed, in no acute distress, nontoxic. PHYSICAL EXAMINATION: VITAL SIGNS: The patient's temperature is now to 99.6, blood pressure is 140/102, respiratory rate of 22, heart rate of 103. HEENT: Unremarkable. NECK: Supple. LUNGS: Have decreased breath sounds. HEART: Normal S1, S2. ABDOMEN: Soft, nontender. EXTREMITIES: Examination of the knee is improved. LABORATORY EXAMINATION: Reveals synovial fluid is positive MRSA for the first tap, the second one is pending. The patient's Lyme is negative. RPR is negative. is negative. The white count on the second fluid is down to 33,000. Chemistries are noted. White count in CBC is down to 11,000. ASSESSMENT AND PLAN: A 57-year-old male with positive human immunodeficiency virus, history of scoliosis, who is admitted with sepsis with methicillin-resistant Staphylococcus aureus, right-knee septic arthritis. On vancomycin. We will check on the repeat cultures; although his CBC is improving, white count however is still has significant leukocytosis in the synovial fluid. We will check on the Gram stain and the culture of that, which is pending. Case was discussed with Dr. Webb regarding the possibility of open drainage. We will follow with you. Herb Shell MD
--- NOTE | 2018-05-09 10:10 | PN ---
Copied To: Fam Webb DO Attending MD: Fam Webb DO DATE: 05/09/2018 FOLLOWUP REPORT The patient underwent arthrocentesis of his right knee yesterday for extraction of approximately 30 mL of serosanguineous fluid of the right knee. It was opaque and not purulent. It was sent in for culture, cell count and crystals. The cell count came back slightly less than last aspiration, which was three days ago. He feels much better. We will wait for the culture to come back. On the Gram-stain, I did not see any bacteria, just the inflammatory cells from the inflammatory synovitis of his right knee. We will wait for the culture to come back again and he is on antibiotics. I feel as though it could be treated without surgery as the white count is less, the fluid is not purulent and that the antibiotics are responding and helping the inflammation of the sepsis of the right knee. Hopefully, he will continue to get better. I would only do an operative arthroscopy if his condition deteriorates, but looks like he is getting better with the antibiotics and irrigation of the joint like we did yesterday and two or three days ago. Fam Webb DO MTDD
[2018-05-09] MEDS: Sodium Chloride 0.9% 500 ML IV SCH (22:14)
--- NOTE | 2018-05-10 00:20 | PN ---
Copied To: Rogelio Shirley DO Attending MD: Rogelio Shirley DO DATE: 05/09/2018 SUBJECTIVE: I saw him resting comfortably in bed. He had a lot of questions for me today. He is improving. The right leg is less swollen today, it is less red. He had a venous Doppler, which was negative. He does have the MRSA in the right knee. He is currently on Colace, Elavil, Isentress, Lopressor, Lovenox, morphine, Norvasc, IV fluids, Truvada, Ultram and vancomycin IV. I discussed with the Infectious Disease doctor, he cannot be discharged to be on his vancomycin IV for a little while. PHYSICAL EXAMINATION: VITAL SIGNS: He has a 97.8 temp, 100 pulse, 151/102 blood pressure, 18 respiratory rate, 95% O2 sat on room air. I am concerned about his blood pressure staying elevated. He is already on Lopressor and Norvasc. I will increase the Norvasc to 10 and I am going to increase the Lopressor also. HEENT: His head is atraumatic, normocephalic. HEART: Regular rate. LUNGS: Decreased breath sound, but clear. ABDOMEN: Soft. EXTREMITIES: The right leg is better, less red, less swollen. The right knee is also swollen, but not as bad. It is also less tender overall. I asked him that he could try and decrease the morphine if possible. LABORATORY DATA: He has a 10.9 white count, better; 14.8 hemoglobin; 42.3 hematocrit and 271 platelets. 139 sodium, potassium 4.6. BUN 17, creatinine 0.5, GFR is greater than 60, sugar is 194, calcium is 8.9, total bili is 0.5. AST is 45, ALT is 59, alk phos 102 and 7.3 total protein. ASSESSMENT AND PLAN: So, he is fairly comfortable at this time. I will continue as per Infectious Disease and Orthopedics and continue IV antibiotics. We will check his labs and increase his blood pressure medications. Rogelio Shirley DO
[2018-05-10] MEDS: Morphine 4 mg/ml ISec IVP PRN ×3 (00:49→23:18)
[2018-05-10 07:25] LABS: HEMOGLOBIN 13.7 g/dL (14.0-18.0); MEAN CELL VOLUME 82.9 fl (80.0-105.0); MEAN CORPUSCULAR HEMOGLOBIN 28.8 pg (25.0-35.0); MEAN CORPUSCULAR HGB CONC 34.8 g/dl (31.0-37.0); MEAN PLATELET VOLUME 9.8 fl (7.0-11.0); RBC 4.75 10^6/uL (3.5-6.1); WHITE BLOOD COUNT 11.2 10^3/ul (4.5-11.0)
[2018-05-10 07:39] LABS: ALBUMIN 3.6 g/dL (3.0-4.8); ALT/SGPT 63 U/L (7-56); AST/SGOT 39 U/L (17-59); BLOOD UREA NITROGEN 17 mg/dL (7-21); CALCIUM 8.8 mg/dL (8.4-10.5); GFR NON-AFRICAN AMERICAN > 60
[2018-05-10] MEDS: TRUVADA PO SCH (10:26)
[2018-05-10] MEDS: Enoxaparin 40 mg Syringe SC SCH (10:26)
--- NOTE | 2018-05-10 15:11 | PN ---
Copied To: Rogelio Shirley DO Attending MD: Rogelio Shirley DO. DATE: 05/10/2018 SUBJECTIVE: I want to see him. He is on isolation for MRSA in the right knee. Someway he is doing better, someway he is not. He did move the right leg better. He did stand on it yesterday, but now it is very swollen on the knee and got 33 more milliliters of pus out of the knee yesterday. He is on Colace, Elavil, Isentress, Lopressor, Lovenox, morphine, Norvasc, IV fluids, Truvada, Ultram and vancomycin. PHYSICAL EXAMINATION: VITAL SIGNS: He has a 98.4 temperature, 93 pulse, 146/95 blood pressure better than yesterday, I slowly adjusted his blood pressure meds, 20 respiratory rate, 98% O2 sat on room air. HEENT: Head: Atraumatic, normocephalic. HEART: Regular rate. LUNGS: Decreased breath sounds, but clear. ABDOMEN: Soft. EXTREMITIES: The right leg knee is swollen, worse than yesterday, but he can move it a little bit better. LABORATORY DATA: He has 11.2 white count went up a little bit, 13.7 hemoglobin, 39.4 hematocrit with 310 platelets. He has 140 sodium, potassium 4.2, BUN 17, creatinine 0.5, GFR is greater than 60, sugar is 164, calcium is 8.8, total bili is 0.4, AST is 39, ALT is 63, alkaline phosphatase is 90. He has a total protein 7.1. Synovial fluid showed 33,000 white count, RBCs were 10,000 that went up, so he still has a septic knee. He has got MRSA. He is on isolation. He is being seen by Orthopedics and by Infectious Disease. He sat with me down for 15-20 minutes, asking me questions. He has HIV. Checking cultures. He is going to need to be on IV antibiotics for what I was told for 3 weeks. We will continue with aggressive treatment and care. We will check his labs tomorrow. Hopefully, the swelling will come down. He has a right knee sepsis with MRSA. HIV positive. Thank you very much. Rogelio Shirley DO [facility] # [id number]
--- NOTE | 2018-05-10 16:20 | PN ---
Copied To: Herb Shell MD Attending MD: Herb Shell MD DATE: 05/10/2018 SUBJECTIVE: The patient is in bed in no acute distress. He states his knee is much improved. He appears to be much happier with his care. He is smiling. He has no fevers. PHYSICAL EXAMINATION: VITAL SIGNS: He has a temperature of 98, his fevers are down, blood pressure is 140/90, respiratory rate of 20, heart rate of 83. HEENT: Unremarkable. NECK: Supple. LUNGS: Have decreased breath sounds. HEART: Normal S1, S2. ABDOMEN: Soft, nontender. EXTREMITIES: Examination of the knee is much improved. It has more range of motion and he is able to ambulate. LABORATORY EXAMINATION: Reveals a white count of 11,200. Coagulation is noted. Chemistries are reviewed. Of note is that the patient's procalcitonin is 0.24. Repeat synovial WBCs is 33,000, 97% polys and his RPR is negative. Lyme is negative and FTA is negative. Microbiology reveals the blood cultures are negative. Initial synovial fluid cultures were MRSA and repeat synovial fluid cultures no growth. ASSESSMENT AND PLAN: A 57-year-old male who is positive human immunodeficiency virus whose human immunodeficiency virus polymerase chain reaction is undetectable. Very good T-cells as per the patient. Also, history of scoliosis who is admitted with sepsis with right knee methicillin-resistant Staphylococcus aureus septic arthritis, currently on vancomycin. Will need 2-3 weeks of antibiotics on vancomycin. We will check on vancomycin trough level. Continue his human immunodeficiency virus medications. The patient is to go back to [facility], Dr. Reddy and once he is discharged, currently on vancomycin. We will order a vancomycin trough level. The patient is receiving at 08:15 and 20:15. We will order a vancomycin trough level for tomorrow prior to tomorrow morning's dose. Herb Shell MD
[2018-05-10] MEDS: Vancomycin 1gm in NS 250ml 1 GM/250 ML BAG IVPB SCH (21:02)
[2018-05-11 06:49] LABS: HEMOGLOBIN 14.6 g/dL (14.0-18.0); MEAN CELL VOLUME 84.1 fl (80.0-105.0); MEAN CORPUSCULAR HGB CONC 34.4 g/dl (31.0-37.0); MEAN PLATELET VOLUME 9.7 fl (7.0-11.0); RBC 5.04 10^6/uL (3.5-6.1); RED CELL DISTRIBUTION WIDTH 13.1 % (11.5-14.5); WHITE BLOOD COUNT 10.4 10^3/ul (4.5-11.0)
[2018-05-11 07:42] LABS: ALBUMIN 3.7 g/dL (3.0-4.8); ALT/SGPT 71 U/L (7-56); AST/SGOT 42 U/L (17-59); BLOOD UREA NITROGEN 23 mg/dL (7-21); GFR NON-AFRICAN AMERICAN > 60
[2018-05-11] MEDS: Enoxaparin 40 mg Syringe SC SCH (10:04)
[2018-05-11] MEDS: TRUVADA PO SCH ×2 (10:06→10:29)
[2018-05-11] MEDS ORDERED: DAPTOmycin 500 mg Inj (Cubicin) IV SCH (10:15)
--- NOTE | 2018-05-11 10:24 | PN ---
Copied To: Herb Shell MD Attending MD: Herb Shell MD DATE: 05/11/2018 SUBJECTIVE: The patient is in bed, in no acute distress, nontoxic. PHYSICAL EXAMINATION: VITAL SIGNS: On exam, temperature is 98, blood pressure is 140/60, respiratory rate of 20, heart rate of 92. HEENT: Examination of HEENT is unremarkable. NECK: Supple. LUNGS: Have decreased breath sounds. HEART: Normal S1, S2. ABDOMEN: Soft. LABORATORY DATA: Laboratory examination reveals the white count is 10.4. Chemistries are noted. is reviewed. Vancomycin trough of 5.2. The serology is negative. Review of orders reveals the patient to be on vancomycin. The patient is also on his HIV medications. ASSESSMENT AND PLAN: A 57-year-old male who has positive human immunodeficiency virus and with good T-cells, undetectable viral load, on Isentress and tenofovir, who was admitted with sepsis with methicillin-resistant Staphylococcus aureus, right septic knee arthritis, on vancomycin. Repeat aspiration of the knee, the repeat cultures are still positive as of this morning. I have discussed this with Dr. Webb. Because of the vancomycin being low, we will start the patient on daptomycin and will need either open drainage or repeat aspiration. The review of the sensitivity of the methicillin-resistant Staphylococcus aureus reveals the patient to have REX of the vancomycin is 1. However, at Gram every 12, the patient's vancomycin trough level of 5.2 is not adequate. We will switch to daptomycin. Will need either open drainage or repeat aspiration of the synovial fluid and sent for cell count and repeat cultures. Dr. Webb has been contacted and he agrees with the management. We will follow with you. We will also order a CPK because of the use of daptomycin. Clinically, the patient has been improving. The patient earlier had a sed rate of 36 and normal procalcitonin; however, had an elevated C-reactive protein. Will need at least 3 weeks of IV antibiotics. Herb Shell MD
--- NOTE | 2018-05-11 10:26 | PN ---
Copied To: Fam Webb DO Attending MD: Fam Webb DO DATE: 05/11/2018 LOCATION: A 57-year-old male in room 377, bed 2. Patient is responding very nice to the IV antibiotics for his septic right knee, has much less swelling, no tense effusion present. He does have some evidence of an effusion, but that is normal and it is resolving a little more everyday. He actually said his knee feels better, he can move it like 50 percent of normal he can stand up without any complaint of pain. I feel that he does not need any open drainage of his knee and possibility of re-aspiration is low because it is getting better every day. We are just going to wait for that last culture to come back to see the sensitivity and that was done on 05/08/2018, but he shows all signs of getting better with current medications and I could follow him as an outpatient when he goes home. Fam Webb DO MTDAdrianne
[2018-05-11 11:36] LABS: TROPONIN I < 0.01 ng/mL
--- NOTE | 2018-05-11 14:12 | PN ---
Copied To: Rogelio Shirley DO Attending MD: Rogelio Shirley DO DATE: 05/11/2018 SUBJECTIVE: I saw him resting comfortably in bed. He did take a shower. His legs get a little bit painful and his knee is a little bit less swollen. The calf is a little bit less swollen and also a little bit less red, but still hot. He is on Colace, Cozaar, it was changed to daptomycin. He is on prednisone 80 mg IM once he had that, Elavil, Isentress, Lopressor, Lovenox, Marcaine, morphine, amlodipine, IV fluids, Truvada, and Ultram. PHYSICAL EXAMINATION: VITAL SIGNS: He has 98.3 temp; 87 pulse; 140/96 blood pressure, which dropped to 150/90 blood pressure, 19 respiratory rate, 99% O2 sat on room air. HEENT: Head is atraumatic and normocephalic. HEART: Regular rate. LUNGS: Clear to auscultation. ABDOMEN: Soft, nontender. Positive bowel sounds. EXTREMITIES: Right leg is a little bit swollen. Still redness in the calf. Less redness in the knee with the knee swollen, not as bad. LABORATORY DATA: He has 139 sodium, potassium 4.4, BUN is 23, creatinine 0.5, GFR is greater than 60, sugar is 158, calcium is 9, total bili is 0.4, AST is 42, ALT is 71, alk phos is 9, total protein is 7.1. White count 10.4, which is good; 14.6 hemoglobin, 42.4 hematocrit with 321 platelets. ESR jumped to 75. He will need 3 weeks of antibiotics as per Infectious Disease. Check his labs tomorrow. He is on different antibiotics. Continue aggressive treatment and care. He has very severe cellulitis of the right leg and his MRSA, also hypertension. Rogelio Shirley DO
[2018-05-11 16:27] VITALS: RESP 20
[2018-05-11] MEDS: Sodium Chloride 0.9% 500 ML IV SCH (17:53)
--- NOTE | 2018-05-11 22:28 | US ---
PROCEDURE: Right lower extremity venous US HISTORY: Leg pain and swelling. Evaluate for DVT. PHYSICIAN(S): Francisco Javier Torres M.D. TECHNIQUE: Duplex sonography and color-flow Doppler with graded compression were used to evaluate the deep venous system of the right lower extremity. FINDINGS: The visualized deep venous system of the right lower extremity is sonographically normal and compressible. Normal waveforms and augmentation are seen. There is no sonographic evidence for deep venous thrombosis in the visualized segments of the right lower extremity. There is a complex 3.7 x 5.5 cm fluid collection in the right popliteal fossa, consistent with a Cox cyst. IMPRESSION: 1. No sonographic evidence for deep venous thrombosis in the visualized segments of the right lower extremity.
[2018-05-12] MEDS: Morphine 4 mg/ml ISec IVP PRN ×2 (03:32→11:19)
[2018-05-12] MEDS: Sodium Chloride 0.9% 500 ML IV SCH ×2 (05:23→18:30)
[2018-05-12 07:11] LABS: HEMOGLOBIN 14.8 g/dL (14.0-18.0); MEAN CELL VOLUME 83.9 fl (80.0-105.0); MEAN CORPUSCULAR HEMOGLOBIN 28.6 pg (25.0-35.0); MEAN CORPUSCULAR HGB CONC 34.1 g/dl (31.0-37.0); MEAN PLATELET VOLUME 9.6 fl (7.0-11.0); RBC 5.17 10^6/uL (3.5-6.1); WHITE BLOOD COUNT 11.9 10^3/ul (4.5-11.0)
--- NOTE | 2018-05-12 07:23 | CP.PCM.PN ---
<Kasey Srivastava - Last Filed: 05/12/18 12:40> Subjective - Date & Time of Evaluation Date of Evaluation: 05/12/18 Time of Evaluation: 07:23 - Subjective Subjective: [id number] ID note for Dr. Vasques Patient seen and examined at bedside. Nursing reported no acute events overnight. Patient was resting comfortably and reported the pain and swelling in his right knee has much improved. Patient has had his R knee aspirated two times on this hospital visit. He describes it as a 2/10 at rest. Patient was seen ambulating with crutches but reports that if he stands for too long the pain is exacerbated. He reports decreased ROM of the RLE secondary to the pain. On complete ROS patient denied fever, chills, headache, dizziness, chest pain, palpitations, SOB, cough, abd pain, vomiting, bowel/bladder complaints, skin changes. He does admit to some nausea that he correlates with morphine. Objective - Vital Signs/Intake and Output Vital Signs (last 24 hours): Temp Pulse Resp BP Pulse Ox 98.7 F 81 20 140/90 98 05/11/18 16:27 05/12/18 05:58 05/11/18 16:27 05/11/18 17:51 05/11/18 16:27 Intake and Output: 05/12/18 05/12/18 06:59 18:59 Intake Total 840 Output Total 3350 Balance -2510 - Medications Medications: Current Medications Amitriptyline HCl (Elavil) 25 mg PO DAILY [facility] Last Admin: 05/11/18 10:04 Dose: 25 mg Amlodipine Besylate (Norvasc) 10 mg PO DAILY [facility] Last Admin: 05/11/18 10:04 Dose: 10 mg Docusate Sodium (Colace) 100 mg PO DAILY [facility] Last Admin: 05/11/18 10:03 Dose: 100 mg Enoxaparin Sodium (Lovenox) 40 mg SC DAILY [facility] PRN Reason: Protocol Last Admin: 05/11/18 10:04 Dose: 40 mg Sodium Chloride (Sodium Chloride 0.9%) 500 mls @ 40 mls/hr IV .[id number] [facility] Last Admin: 05/12/18 05:23 Dose: 40 mls/hr Daptomycin 590 mg/ Sodium (Chloride) 100 mls @ 200 mls/hr IV Q24H [facility] Stop: 06/01/18 10:16 Last Admin: 05/11/18 11:03 Dose: 200 mls/hr Losartan Potassium (Cozaar) 25 mg PO DAILY [facility] Last Admin: 05/11/18 10:02 Dose: 25 mg Metoprolol Tartrate (Lopressor) 25 mg PO BID [facility] Last Admin: 05/11/18 17:51 Dose: 25 mg Morphine Sulfate (Morphine) 3 mg IVP Q3H PRN PRN Reason: Pain, severe (8-10) Last Admin: 05/12/18 03:32 Dose: 3 mg Non-Formulary Medication (Truvada 200 Mg-300 Mg Tablet) 1 tab PO DAILY [facility] Last Admin: 05/11/18 10:29 Dose: 1 tab Raltegravir (Isentress) 400 mg PO Q12 [facility] PRN Reason: Protocol Last Admin: 05/11/18 21:07 Dose: 400 mg Tramadol HCl (Ultram) 50 mg PO TID PRN PRN Reason: Pain, moderate (4-7) Last Admin: 05/11/18 23:23 Dose: 50 mg - Labs Labs: 05/12/18 06:20 05/11/18 06:00 - Constitutional Appears: Non-toxic, No Acute Distress - Head Exam Head Exam: ATRAUMATIC, NORMAL INSPECTION, NORMOCEPHALIC - Eye Exam Eye Exam: EOMI, Normal appearance, PERRL. absent: Conjunctival injection, Scleral icterus Pupil Exam: NORMAL ACCOMODATION - ENT Exam ENT Exam: Mucous Membranes Moist - Respiratory Exam Respiratory Exam: Clear to Ausculation Bilateral, NORMAL BREATHING PATTERN. absent: Accessory Muscle Use, Rales, Rhonchi, Wheezes, Respiratory Distress - Cardiovascular Exam Cardiovascular Exam: RRR, +S1, +S2 - GI/Abdominal Exam GI & Abdominal Exam: Soft, Normal Bowel Sounds. absent: Firm, Guarding, Tenderness - Rectal Exam Rectal Exam: Deferred - Extremities Exam Extremities Exam: absent: Pedal Edema Additional comments: decreased ROM RLE swelling much improved R knee - Neurological Exam Neurological Exam: Alert, Awake, Oriented x3 - Psychiatric Exam Psychiatric exam: Normal Affect, Normal Mood - Skin Skin Exam: Dry, Intact, Normal Color, Warm Assessment and Plan - Assessment and Plan (Free Text) Assessment: 57yo male PMHx HIV+ with undetetable viral load admitted for sepsis secondary to R septic knee arthritis. Plan: -afebrile overnight; WBC 11.9 this AM -patient has had 2 aspirations of R knee joint on this hospital admission by ortho Dr. Webb -Synovial studies 05/08 WBC: 60593 RBC: 1000 Neutrophils: 97.1 Lymphocytes: 2.9 Monocytes: 0 -Synovial Fluid 05/08: +MRSA Synovial Fluid 05/06: +MRSA -Daptomycin 590mg daily started 05/11 - complete total of 4 weeks of abx regimen -Urine culture negative -Blood culture negative x 2 -RPR, T Pallidum, Lyme negative -Continue management as per primary Discussed with Dr. Caprice Srivastava PGY3 <Vinicio Vasques - Last Filed: 05/12/18 17:29> Objective - Vital Signs/Intake and Output Vital Signs (last 24 hours): Temp Pulse Resp BP Pulse Ox 98.1 F 98 H 20 129/84 93 L 05/12/18 08:19 05/12/18 11:21 05/12/18 08:19 05/12/18 11:21 05/12/18 08:19 Intake and Output: 05/12/18 05/12/18 06:59 18:59 Intake Total 840 Output Total 3350 Balance -2510 - Medications Medications: Current Medications Amitriptyline HCl (Elavil) 25 mg PO DAILY [facility] Last Admin: 05/12/18 11:16 Dose: 25 mg Amlodipine Besylate (Norvasc) 10 mg PO DAILY [facility] Last Admin: 05/12/18 11:21 Dose: 10 mg Docusate Sodium (Colace) 100 mg PO DAILY [facility] Last Admin: 05/12/18 11:14 Dose: 100 mg Enoxaparin Sodium (Lovenox) 40 mg SC DAILY [facility] PRN Reason: Protocol Last Admin: 05/12/18 11:18 Dose: 40 mg Sodium Chloride (Sodium Chloride 0.9%) 500 mls @ 40 mls/hr IV .[id number] [facility] Last Admin: 05/12/18 05:23 Dose: 40 mls/hr Daptomycin 590 mg/ Sodium (Chloride) 100 mls @ 200 mls/hr IV Q24H [facility] Stop: 06/01/18 10:16 Last Admin: 05/12/18 11:24 Dose: 200 mls/hr Losartan Potassium (Cozaar) 25 mg PO DAILY [facility] Last Admin: 05/12/18 11:15 Dose: 25 mg Metoprolol Tartrate (Lopressor) 25 mg PO BID [facility] Last Admin: 05/12/18 11:17 Dose: 25 mg Morphine Sulfate (Morphine) 3 mg IVP Q3H PRN PRN Reason: Pain, severe (8-10) Last Admin: 05/12/18 11:19 Dose: 3 mg Non-Formulary Medication (Truvada 200 Mg-300 Mg Tablet) 1 tab PO DAILY [facility] Last Admin: 05/11/18 10:29 Dose: 1 tab Raltegravir (Isentress) 400 mg PO Q12 [facility] PRN Reason: Protocol Last Admin: 05/12/18 11:17 Dose: 400 mg Tramadol HCl (Ultram) 50 mg PO TID PRN PRN Reason: Pain, moderate (4-7) Last Admin: 05/11/18 23:23 Dose: 50 mg - Labs Labs: 05/12/18 06:20 05/12/18 06:20 Assessment and Plan - Assessment and Plan (Free Text) Plan: Infectious Diseases Attending Physician Addendum Patient seen and examined, discussed with medical assistant float. I have reviewed the pertinent clinical information for the patient, including history of present illness, medical, personal and social histories, lab results and imaging findings. I agree with the above findings, assessment and plan. In addition, will continue Daptomycin for right knee septic arthritis with MRSA S/P arthrocentesis. Will need 4 weeks of antibiotics with weekly ESR, CRP, CBC, CMP , CPK levels while on Daptomycin.
[2018-05-12 07:29] LABS: ALB/GLOB RATIO 1.1 (1.1-1.8); ALBUMIN 3.9 g/dL (3.0-4.8); ALT/SGPT 65 U/L (7-56); AST/SGOT 36 U/L (17-59); BLOOD UREA NITROGEN 23 mg/dL (7-21); CALCIUM 8.9 mg/dL (8.4-10.5); GFR NON-AFRICAN AMERICAN > 60
--- NOTE | 2018-05-12 07:59 | PROCN ---
Copied To: Fam Webb DO Attending MD: Fam Webb DO DATE: 05/08/2018 A 57-year-old male with effusion of his right knee that was tapped two days ago showing MRSA infection with 35,000 white count. Infectious Disease service requested other aspiration of his right knee, which we did after prepping the knee, aspirating with arthrocentesis with half as much serous fluid that is yellow-tinged but not purulent, approximately about 25 mL. We sent it for a cell count, culture and crystals and used Marcaine for injection to numb the skin and foot; hopefully the white count is coming down infection because he does feel better and we will send another specimen for crystals besides cell count and culture. Fam Webb DO
[2018-05-12] MEDS: TRUVADA PO SCH (10:00)
--- NOTE | 2018-05-12 10:06 | PN ---
Copied To: Fam Webb DO Attending MD: Fam Webb DO DATE: 05/12/2018 UPDATED REPORT Ray is in room 377, bed 2 who is being treated for his septic right knee. Right now, he feels much better. Right knee has even less swelling, he is not in a mood to get a aspiration but we will watch that. If it does not get better, we can do an aspiration later on the right knee but he is feeling better, less pain, more motion and he can ambulate better. He has been on antibiotics for three weeks and we will follow him; if his swelling increases, we could always e-aspirate it and get a culture and cell count, but he is doing much better. Fam Webb DO
--- NOTE | 2018-05-12 10:22 | PN ---
Copied To: Rogelio Shirley DO Attending MD: Rogelio Shirley DO DATE: 05/12/2018 SUBJECTIVE: I saw him this morning resting in bed. He is very tired this morning. He slept well. Still wants to sleep. He has no complaints. The right leg is improving slowly, less swollen, less red, less hot. He is on Colace, Cozaar, daptomycin, Elavil, Isentress, Lopressor, Lovenox, morphine, Norvasc, IV fluids, Truvada and Ultram. PHYSICAL EXAMINATION: VITAL SIGNS: 98.1 temp, 93 pulse, 129/84 blood pressure, 20 respiratory rate, 93% O2 sat on oxygen. HEENT: His head is atraumatic, normocephalic. HEART: Regular rate. LUNGS: Clear to auscultation. EXTREMITIES: The right leg is not as swollen. Maybe +1/4, less red, less hot. It is definitely improving. LABORATORY DATA: He has a 11.9 white count, a little bit up, 14.8 hemoglobin, 43.4 hematocrit with 302 platelets. He has a 140 sodium, potassium 4.7, BUN is 23, creatinine 0.5, GFR is greater than 60, sugar is 131, calcium is 8.9, total bili is 0.5, AST is 36, ALT is 65, alk phos 98, total creatine kinase is 85, troponin I is less than 0.01, total protein 7.4. The HIV did come back positive. ASSESSMENT AND PLAN: We will still have to continue the IV antibiotics for his right knee infection. So IV antibiotics for another few weeks as per Infectious Disease. Samuel Bell who has got a septic knee with human immunodeficiency virus positive. Rogelio Shirley DO
[2018-05-12] MEDS: Enoxaparin 40 mg Syringe SC SCH (11:18)
[2018-05-13 07:05] LABS: HEMOGLOBIN 14.7 g/dL (14.0-18.0); MEAN CELL VOLUME 83.2 fl (80.0-105.0); MEAN CORPUSCULAR HEMOGLOBIN 28.8 pg (25.0-35.0); MEAN CORPUSCULAR HGB CONC 34.6 g/dl (31.0-37.0); MEAN PLATELET VOLUME 9.5 fl (7.0-11.0); RBC 5.11 10^6/uL (3.5-6.1); RED CELL DISTRIBUTION WIDTH 12.9 % (11.5-14.5); WHITE BLOOD COUNT 11.9 10^3/ul (4.5-11.0)
[2018-05-13] MEDS: Sodium Chloride 0.9% 500 ML IV SCH ×2 (07:07→17:27)
[2018-05-13 07:18] LABS: ALB/GLOB RATIO 1.1 (1.1-1.8); ALBUMIN 3.7 g/dL (3.0-4.8); ALT/SGPT 52 U/L (7-56); AST/SGOT 29 U/L (17-59); BLOOD UREA NITROGEN 24 mg/dL (7-21); CALCIUM 8.8 mg/dL (8.4-10.5); GFR NON-AFRICAN AMERICAN > 60
--- NOTE | 2018-05-13 08:00 | CP.PCM.PN ---
<CarolaKasey - Last Filed: 05/13/18 13:48> Subjective - Date & Time of Evaluation Date of Evaluation: 05/13/18 Time of Evaluation: 08:00 - Subjective Subjective: [id number] ID Progress note for Dr. Vasques Patient seen and examined at bedside. Nursing reported no acute events overnight. Patient reports pain and swelling of R knee much improved and he is able to ambulate and stand up to shower without crutched. After he stands up however for an extended amount of time he begins to have a recurrence of the pain and some swelling which abates with rest. He denied acute complaints of fever, chills, headache, dizziness, chest pain, palpitations, SOB, cough, abd pain, nausea, vomiting, bowel/baldder complaints. Patient is eager to go home as he has to take care of his pets. Objective - Vital Signs/Intake and Output Vital Signs (last 24 hours): Temp Pulse Resp BP Pulse Ox 98.2 F 80 20 141/93 H 95 05/12/18 17:34 05/12/18 18:28 05/12/18 17:34 05/12/18 18:28 05/12/18 17:34 Intake and Output: 05/13/18 05/13/18 06:59 18:59 Intake Total 1320 Output Total 1450 Balance -130 - Medications Medications: Current Medications Amitriptyline HCl (Elavil) 25 mg PO DAILY [facility] Last Admin: 05/12/18 11:16 Dose: 25 mg Amlodipine Besylate (Norvasc) 10 mg PO DAILY [facility] Last Admin: 05/12/18 11:21 Dose: 10 mg Docusate Sodium (Colace) 100 mg PO DAILY [facility] Last Admin: 05/12/18 11:14 Dose: 100 mg Enoxaparin Sodium (Lovenox) 40 mg SC DAILY [facility] PRN Reason: Protocol Last Admin: 05/12/18 11:18 Dose: 40 mg Sodium Chloride (Sodium Chloride 0.9%) 500 mls @ 40 mls/hr IV .[id number] [facility] Last Admin: 05/13/18 07:07 Dose: 40 mls/hr Daptomycin 590 mg/ Sodium (Chloride) 100 mls @ 200 mls/hr IV Q24H [facility] Stop: 06/01/18 10:16 Last Admin: 05/12/18 11:24 Dose: 200 mls/hr Losartan Potassium (Cozaar) 25 mg PO DAILY [facility] Last Admin: 05/12/18 11:15 Dose: 25 mg Metoprolol Tartrate (Lopressor) 25 mg PO BID [facility] Last Admin: 05/12/18 18:28 Dose: 25 mg Morphine Sulfate (Morphine) 3 mg IVP Q3H PRN PRN Reason: Pain, severe (8-10) Last Admin: 05/12/18 11:19 Dose: 3 mg Non-Formulary Medication (Truvada 200 Mg-300 Mg Tablet) 1 tab PO DAILY [facility] Last Admin: 05/12/18 10:00 Dose: 1 tab Raltegravir (Isentress) 400 mg PO Q12 [facility] PRN Reason: Protocol Last Admin: 05/12/18 21:31 Dose: 400 mg Tramadol HCl (Ultram) 50 mg PO TID PRN PRN Reason: Pain, moderate (4-7) Last Admin: 05/13/18 04:09 Dose: 50 mg - Labs Labs: 05/13/18 06:30 05/13/18 06:30 - Constitutional Appears: Non-toxic, No Acute Distress - Head Exam Head Exam: ATRAUMATIC, NORMAL INSPECTION, NORMOCEPHALIC - Eye Exam Eye Exam: EOMI, Normal appearance, PERRL. absent: Conjunctival injection, Scleral icterus Pupil Exam: NORMAL ACCOMODATION - ENT Exam ENT Exam: Mucous Membranes Moist - Neck Exam Neck Exam: Full ROM, Normal Inspection. absent: Lymphadenopathy - Respiratory Exam Respiratory Exam: Clear to Ausculation Bilateral, NORMAL BREATHING PATTERN. absent: Accessory Muscle Use, Rales, Rhonchi, Wheezes, Respiratory Distress - Cardiovascular Exam Cardiovascular Exam: REGULAR RHYTHM, +S1, +S2 - GI/Abdominal Exam GI & Abdominal Exam: Soft, Normal Bowel Sounds. absent: Firm, Guarding, Rigid, Tenderness - Rectal Exam Rectal Exam: Deferred - Extremities Exam Extremities Exam: Normal Capillary Refill. absent: Pedal Edema Additional comments: decreased ROM RLE secondary to pain of R knee swelling of R knee greatly improved since admission no skin changes L foot dorsal aspect has healing wounds - Neurological Exam Neurological Exam: Alert, Awake, Oriented x3 - Psychiatric Exam Psychiatric exam: Normal Affect, Normal Mood - Skin Skin Exam: Dry, Intact, Warm Assessment and Plan - Assessment and Plan (Free Text) Assessment: 57yo male PMHx HIV+ with undetetable viral load admitted for sepsis secondary to R septic knee arthritis. Plan: -afebrile overnight; WBC 11.9 this AM -patient has had 2 R knee arthrocentsis on this hospital admission by ortho Dr. Webb -Synovial studies 05/08 WBC: 50418 RBC: 1000 Neutrophils: 97.1 Lymphocytes: 2.9 Monocytes: 0 -Synovial Fluid 05/08: +MRSA Synovial Fluid 05/06: +MRSA -Daptomycin 590mg daily started 05/11 - complete total of 4 weeks of abx regimen -Urine culture negative -Blood culture negative x 2 -RPR, T Pallidum, Lyme negative -Discharge planning: Upon discharge patient to register at outpatient infusion clinic for IV Daptomycin 590mg daily for a total of 4 weeks. Patient to have weekly labs as follows: ESR, CRP, CBC, CMP, CPK levels Patient has been given scripts for IV abx and lab work. Discussed with Dr. Caprice Srivastava PGY3 <Vinicio Vasques - Last Filed: 05/13/18 16:50> Objective - Vital Signs/Intake and Output Vital Signs (last 24 hours): Temp Pulse Resp BP Pulse Ox 98.1 F 88 20 140/90 95 05/13/18 08:04 05/13/18 10:40 05/13/18 08:04 05/13/18 10:40 05/13/18 08:04 Intake and Output: 05/13/18 05/13/18 06:59 18:59 Intake Total 1320 Output Total 1450 Balance -130 - Medications Medications: Current Medications Amitriptyline HCl (Elavil) 25 mg PO DAILY [facility] Last Admin: 05/13/18 10:40 Dose: 25 mg Amlodipine Besylate (Norvasc) 10 mg PO DAILY [facility] Last Admin: 05/13/18 10:39 Dose: 10 mg Docusate Sodium (Colace) 100 mg PO DAILY [facility] Last Admin: 05/13/18 10:40 Dose: 100 mg Enoxaparin Sodium (Lovenox) 40 mg SC DAILY [facility] PRN Reason: Protocol Last Admin: 05/13/18 10:41 Dose: 40 mg Sodium Chloride (Sodium Chloride 0.9%) 500 mls @ 40 mls/hr IV .[id number] [facility] Last Admin: 05/13/18 07:07 Dose: 40 mls/hr Daptomycin 590 mg/ Sodium (Chloride) 100 mls @ 200 mls/hr IV Q24H [facility] Stop: 06/01/18 10:16 Last Admin: 05/13/18 11:10 Dose: 200 mls/hr Losartan Potassium (Cozaar) 50 mg PO DAILY [facility] Last Admin: 05/13/18 10:40 Dose: 50 mg Metoprolol Tartrate (Lopressor) 25 mg PO BID [facility] Last Admin: 05/13/18 10:40 Dose: 25 mg Morphine Sulfate (Morphine) 3 mg IVP Q3H PRN PRN Reason: Pain, severe (8-10) Last Admin: 05/12/18 11:19 Dose: 3 mg Non-Formulary Medication (Truvada 200 Mg-300 Mg Tablet) 1 tab PO DAILY [facility] Last Admin: 05/13/18 10:41 Dose: 1 tab Raltegravir (Isentress) 400 mg PO Q12 [facility] PRN Reason: Protocol Last Admin: 05/12/18 21:31 Dose: 400 mg Tramadol HCl (Ultram) 50 mg PO TID PRN PRN Reason: Pain, moderate (4-7) Last Admin: 05/13/18 10:40 Dose: 50 mg - Labs Labs: 05/13/18 06:30 05/13/18 06:30 Assessment and Plan - Assessment and Plan (Free Text) Plan: Infectious Diseases Attending Physician Addendum Patient discussed with medical billing supervisor. I have reviewed the pertinent clinical information for the patient, including history of present illness, medical, personal and social histories, lab results and imaging findings. I agree with the above findings, assessment and plan. In addition, will continue Daptomycin for right knee septic arthritis with MRSA S/P arthrocentesis. Will need 4 weeks of antibiotics with weekly ESR, CRP, CBC, CMP, CPK levels while on Daptomycin. Patient will be monitored clinically to see if he may still need repeat arthrocentesis.
--- NOTE | 2018-05-13 08:57 | PN ---
Copied To: Rogelio Shirley DO Attending MD: Rogelio Shirley DO DATE: 05/13/2018 SUBJECTIVE: I saw him in his room. He is doing more. He is walking more. He took a shower. He is standing more. The right knee, he still cannot bend it well. It is still swollen, but the leg, the calf is less swollen. He has a MRSA in the right knee, a septic joint. He has got HIV, hypertension. He is enjoying his stay here in [place]. MEDICATIONS: He is on Colace, Cozaar. I had to increase the Cozaar from 25 to 50 because his blood pressure went up. He is on daptomycin, methylprednisolone, Elavil, Isentress, Lopressor, Lovenox, Marcaine, morphine as needed, Norvasc, IV fluids, Truvada and tramadol. PHYSICAL EXAMINATION: VITAL SIGNS: He has a 98.1 temp, 88 pulse, 144/94 that is why I raised the Cozaar from 25 to 50, respiratory rate is 20, 95% O2 sat on room air. HEENT: His head is atraumatic, normocephalic. HEART: Regular rate. LUNGS: Decreased breath sounds, but clear. ABDOMEN: Soft. EXTREMITIES: The right calf is less swollen. No heat, which is good. Not red. The right knee is a little bit swollen, maybe a little bit more than yesterday, but he is trying to do more in the room. LABORATORY DATA: He has a 11.9 white count, 14.7 hemoglobin, 42.5 hematocrit with 295 platelets. He has a 137 sodium, potassium 4.7, BUN 24, creatinine 0.6, GFR is greater than 60, sugar is 125, calcium is 8.8, total bili is 0.4, AST is 29, ALT is 52, alk phos 95. Troponin I was less than 0.01, total protein 7.1. ASSESSMENT AND PLAN: He is being seen by multiple physicians, Orthopedics, Infectious Disease, also social sciences professor and dependency case manager trying to get him to possibly be discharged with outpatient IV antibiotics. It all depends on his insurance and what he can afford. We are working on that too, but he has got another 2-3 weeks of IV antibiotics left to fix his right knee septic joint. Continue aggressive treatment and care on [facility]. We will adjust daily and as needed. Rogelio Shirley DO
[2018-05-13] MEDS: TRUVADA PO SCH (10:41)
[2018-05-13] MEDS: Enoxaparin 40 mg Syringe SC SCH (10:41)
[2018-05-13 10:46] VITALS: BP 140/90
[2018-05-13 17:05] VITALS: PULSE 82; TEMP 98.2; O2SAT 96
== END 2018-05-13 18:08 | disposition home or self-care (01) | DRG 550 ==
LOC: ED 16:22 → ERH 19:12 → 3RSO 23:05
PROVIDERS: ADMIT Family Medicine; ATTEND Family Medicine
PROC: 3E0U33Z Introduction of Anti-inflammatory into Joints, Percutaneous Approach (ICD-10-PCS; 2018-05-06)
PROC: 3E0U3BZ Introduction of Anesthetic Agent into Joints, Percutaneous Approach (ICD-10-PCS; 2018-05-06)
PROC: 0S9C3ZX Drainage of Right Knee Joint, Percutaneous Approach, Diagnostic (ICD-10-PCS; 2018-05-06)
PROC: 0S9C3ZX Drainage of Right Knee Joint, Percutaneous Approach, Diagnostic (ICD-10-PCS; principal; 2018-05-08)
PROC: 05H633Z Insertion of Infusion Device into Left Subclavian Vein, Percutaneous Approach (ICD-10-PCS; 2018-05-08)
DX: M00.061 Staphylococcal arthritis, right knee (principal); B95.62 Methicillin resistant Staphylococcus aureus infection as the cause of diseases classified elsewhere; M25.461 Effusion, right knee; Z21 Asymptomatic human immunodeficiency virus [HIV] infection status; M41.9 Scoliosis, unspecified; Z96.642 Presence of left artificial hip joint; Z87.891 Personal history of nicotine dependence

== ENCOUNTER 2018-05-20 16:12 | Inpatient (IN) | payer BC ==
[2018-05-20 16:13] VITALS: BMI 28.8
--- NOTE | 2018-05-20 16:41 | ED PDOC ---
Arrival/HPI - General Chief Complaint: Lower Extremity Problem/Injury Time Seen by Provider: 05/20/18 16:29 Historian: Patient - History of Present Illness Time/Duration: Prior to Arrival Symptom Onset: Gradual Symptom Course: Worsening Severity Level: Moderate Activities at Onset: Rest Associated Symptoms (Text): 05/20/18 16:38 Recently discharged after admission for septic arthritis of the right knee. He is currently being treated with outpatient antibiotics. He reports that his right lower extremity posteriorly has become red hot and swollen. He was met in the emergency department by , who tapped his right knee. He reports that the patient is to be admitted to Dr. Shirley. Patient is HIV positive. Complains of chronic low back pain. No fever. Some chills. Past Medical History - Provider Review Nursing Documentation Reviewed: Yes - Infectious Disease Hx of Infectious Diseases: None - Cardiac Hx Cardiac Disorders: Yes Hx Hypertension: Yes - Pulmonary Hx Respiratory Disorders: No - Neurological Hx Neurological Disorder: Yes Hx Dizziness: Yes - HEENT Hx HEENT Disorder: Yes Other/Comment: ruptured ear drum , hearing loss - Renal Hx Renal Disorder: No - Endocrine/Metabolic Hx Endocrine Disorders: No - Hematological/Oncological Hx Blood Disorders: Yes Hx AIDS: Yes - Integumentary Hx Dermatological Disorder: Yes Hx Cellulitis: Yes - Musculoskeletal/Rheumatological Hx Musculoskeletal Disorders: Yes Hx Back Pain: Yes - Gastrointestinal Hx Gastrointestinal Disorders: No - Genitourinary/Gynecological Hx Genitourinary Disorders: No - Psychiatric Hx Psychophysiologic Disorder: No Hx Substance Use: No - Surgical History Other/Comment: Cyst removed fro forehead 09 Jan 2018 - Anesthesia Hx Anesthesia: Yes Hx Anesthesia Reactions: Yes Family/Social History - Physician Review Nursing Documentation Reviewed: Yes Family/Social History: Unknown Family HX Smoking Status: Never Smoked Hx Alcohol Use: No Hx Substance Use: No Allergies/Home Meds Allergies/Adverse Reactions: Allergies succinylcholine Allergy (Verified 05/18/18 15:18) PAIN Review of Systems - Physician Review All systems were reviewed & negative as marked: Yes - Review of Systems Constitutional: Fatigue. absent: Fevers Respiratory: absent: SOB, Cough, Sputum Cardiovascular: absent: Chest Pain, Palpitations, Syncope Gastrointestinal: absent: Abdominal Pain, Diarrhea, Nausea, Vomiting Genitourinary Male: absent: Dysuria, Frequency Musculoskeletal: Back Pain. absent: Neck Pain Neurological: Headache, Dizziness. absent: Focal Weakness, Gait Changes, Speech Changes, Facial Droop, Disequilibrium, Seizure Physical Exam Vital Signs Temp Pulse Resp BP Pulse Ox 05/20/18 16:21 98.4 F 107 H 18 145/77 95 Temperature: Afebrile Blood Pressure: Normal Pulse: Tachycardic Respiratory Rate: Normal Appearance: Positive for: Well-Appearing, Non-Toxic, Uncomfortable Pain Distress: None Mental Status: Positive for: Alert and Oriented X 3 - Systems Exam Head: Present: Atraumatic, Normocephalic Pupils: Present: PERRL Extroacular Muscles: Present: EOMI Conjunctiva: Present: Normal Mouth: Present: Moist Mucous Membranes Pharnyx: No: ERYTHEMA, EXUDATE, TONSILS ENLARGED Neck: Present: Normal Range of Motion Respiratory/Chest: Present: Clear to Auscultation, Good Air Exchange, Decreased Breath Sounds. No: Respiratory Distress, Accessory Muscle Use Cardiovascular: Present: Regular Rate and Rhythm, Normal S1, S2. No: Murmurs Abdomen: No: Tenderness, Distention, Peritoneal Signs, Rebound, Guarding Back: Present: Normal Inspection, Paraspinal Tenderness. No: CVA Tenderness, Midline Tenderness Upper Extremity: Present: Normal Inspection, Other (left upper extremity PICC line). No: Cyanosis, Edema Lower Extremity: Present: Edema, CALF TENDERNESS, NORMAL PULSES, Normal ROM, Tenderness, Swelling, Erythema, Neurovascularly Intact, Other (Right lower extremity erythema tenderness edema swelling warmth especially posterior from the distal femur distally. Excellent dorsalis pedis pulse). No: Cyanosis, Deformity Neurological: Present: GCS=15, CN II-XII Intact, Speech Normal Skin: Present: Warm, Dry, Normal Color, Other (Right lower extremity cellulitis as above). No: Rashes Psychiatric: Present: Alert, Oriented x 3, Normal Insight, Normal Concentration Medical Decision Making ED Course and Treatment: 05/20/18 17:09 Dr. Shirley is here. - Lab Interpretations Lab Results: 05/20/18 18:39 05/20/18 18:39 Lab Results 05/20/18 18:39: Sodium 139, Chloride 102, Potassium 4.6, Carbon Dioxide 27, Anion Gap 14, BUN 22 H, Creatinine 0.6 L, Est GFR ( Amer) > 60, Est GFR ( Non-Af Amer) > 60, Random Glucose 88, Calcium 9.0, Phosphorus 3.6, Magnesium 2.1 , Total Bilirubin 0.4, AST 23, ALT 25, Alkaline Phosphatase 90, Total Protein 7.4, Albumin 3.6, Globulin 3.9, Albumin/Globulin Ratio 0.9 L 05/20/18 18:39: Urine Color Yellow, Urine Appearance Clear, Urine pH 6.5, Ur Specific Kinsey 1.010, Urine Protein Negative, Urine Glucose (UA) Negative, Urine Ketones Negative, Urine Blood Negative, Urine Nitrate Negative, Urine Bilirubin Negative, Urine Urobilinogen 0.2, Ur Leukocyte Esterase Negative 05/20/18 18:39: PT 13.3 H, INR 1.16, APTT 32.7 05/20/18 18:39: WBC 10.3 D, RBC 4.53, Hgb 13.1 L, Hct 38.8 L, MCV 85.7, MCH 28.9, MCHC 33.8, RDW 13.2, Plt Count 463 H, MPV 9.3, Gran % 63.4, Lymph % (Auto ) 24.9, [place] % (Auto) 9.8 H, Eos % (Auto) 1.7, Baso % (Auto) 0.2, Gran # 6.56 H , Lymph # (Auto) 2.6, [place] # (Auto) 1.0 H, Eos # (Auto) 0.2, Baso # (Auto) 0.02 05/20/18 18:36: pO2 105 H, VBG pH 7.44 H, VBG pCO2 41.0, VBG HCO3 27.8, VBG Total CO2 29.1 H, VBG O2 Sat (Calc) 99.4 H, VBG Base Excess 3.3 H, VBG Potassium 4.8, Sodium 136.0, Chloride 102.0, Glucose 84, Lactate 1.1, FiO2 21.0 , Venous Blood Potassium 4.8 I have reviewed the lab results: Yes - RAD Interpretation Radiology Orders: 05/20/18 16:36 CHEST PORTABLE [RAD] Stat 05/20/18 16:37 DUPLEX LOWER EXTRM VEIN BILAT [US] Stat Bilateral lower extremity venous Doppler is read by the radiologist is positive for a right a bakers cyst. No DVT bilaterally. chest one view shows an elevated right hemidiaphragm with no infiltrate effusion or cardiomegaly Client Success Specialist: Radiologist - Medication Orders Current Medication Orders: Amitriptyline HCl (Elavil) 25 mg PO DAILY [facility] Amlodipine Besylate (Norvasc) 10 mg PO DAILY [facility] Emtricitabine/Tenofovir (Truvada 200 Mg-300 Mg) 1 tab PO DAILY [facility] Daptomycin 590 mg/ Sodium (Chloride) 100 mls @ 200 mls/hr IV Q24H [facility] Stop: 05/25/18 20:01 Losartan Potassium (Cozaar) 50 mg PO DAILY [facility] Metoprolol Tartrate (Lopressor) 25 mg PO BID [facility] Morphine Sulfate (Morphine) 2 mg IVP Q4H PRN PRN Reason: Pain, moderate (4-7) Raltegravir (Isentress) 400 mg PO Q12 [facility] PRN Reason: Protocol Disposition/Present on Arrival - Present on Arrival Any Indicators Present on Arrival: No History of DVT/PE: No History of Uncontrolled Diabetes: No Urinary Catheter: No History of Decub. Ulcer: No History Surgical Site Infection Following: None - Disposition Have Diagnosis and Disposition been Completed?: Yes Diagnosis: Cellulitis Disposition: HOSPITALIZED Disposition Time: 19:14 Patient Plan: Admission Patient Problems: Current Active Problems Problem Status Onset Cellulitis Acute Condition: GOOD
[2018-05-20 18:40] LABS: VENOUS BLOOD GAS BASE EXCESS 3.3 mmol/L (0.0-2.0); VENOUS BLOOD GAS PO2 105 mm/Hg (30-55); VENOUS BLOOD PH 7.44 (7.32-7.43)
[2018-05-20 18:48] LABS: PH,URINE 6.5 (4.7-8.0); URINE BILIRUBIN NEGATIVE (NEGATIVE); URINE BLOOD NEGATIVE (NEGATIVE); URINE GLUCOSE (UA) NEGATIVE (NEGATIVE); URINE LEUKOCYTE ESTERASE NEGATIVE Leu/uL (NEGATIVE); URINE PROTEIN NEGATIVE mg/dL (<30 mg/dL); URINE UROBILINOGEN 0.2 E.U./dL (<1 E.U./dL)
[2018-05-20 18:49] LABS: BASO # 0.02 K/mm3 (0.0-2.0); BASO % 0.2 % (0.0-3.0); EOS # 0.2 (0.0-0.7); EOS % 1.7 % (1.5-5.0); GRAN # 6.56 (1.4-6.5); GRAN % 63.4 % (50.0-68.0); HEMOGLOBIN 13.1 g/dL (14.0-18.0); LYMPH # 2.6 (1.2-3.4); LYMPH % 24.9 % (22.0-35.0); MEAN CELL VOLUME 85.7 fl (80.0-105.0); MEAN CORPUSCULAR HEMOGLOBIN 28.9 pg (25.0-35.0); MEAN CORPUSCULAR HGB CONC 33.8 g/dl (31.0-37.0); MEAN PLATELET VOLUME 9.3 fl (7.0-11.0); MONO % 9.8 % (1.0-6.0); RBC 4.53 10^6/uL (3.5-6.1); RED CELL DISTRIBUTION WIDTH 13.2 % (11.5-14.5); WHITE BLOOD COUNT 10.3 10^3/ul (4.5-11.0)
[2018-05-20 18:52] LABS: URINE APPEARANCE CLEAR (CLEAR); URINE COLOR YELLOW (YELLOW)
[2018-05-20 18:53] LABS: INR 1.16; PARTIAL THROMBOPLASTIN TIME 32.7 Seconds (25.1-36.5); PROTHROMBIN TIME 13.3 SECONDS (9.4-12.5)
[2018-05-20 19:02] LABS: ALB/GLOB RATIO 0.9 (1.1-1.8); ALBUMIN 3.6 g/dL (3.0-4.8); ALT/SGPT 25 U/L (7-56); AST/SGOT 23 U/L (17-59); BLOOD UREA NITROGEN 22 mg/dL (7-21); GFR NON-AFRICAN AMERICAN > 60
--- NOTE | 2018-05-20 19:18 | US ---
HISTORY: Leg pain and swelling. Evaluate for DVT PHYSICIAN(S): Francisco Javier Torres MD. TECHNIQUE: Duplex sonography and color-flow Doppler with graded compression were used to evaluate the deep venous systems of both lower extremities. FINDINGS: The visualized deep venous systems of both lower extremities are sonographically normal and compressible. Normal wave forms and augmentation are seen. There is no sonographic evidence for deep venous thrombosis in the visualized segments of both lower extremities. There is a complex 2.5 x 6.1 cm fluid collection in the right popliteal fossa and a smaller 2.1 x 5.4 cm fluid collection in the left popliteal fossa consistent with bilateral Cox's cysts. IMPRESSION: No sonographic evidence for deep venous thrombosis in the visualized segments of both lower extremities.
[2018-05-20] MEDS ORDERED: DAPTOmycin 500 mg Inj (Cubicin) IV SCH (20:00)
[2018-05-20] MEDS: Morphine 2 mg/ml ISec IVP PRN (20:05)
--- NOTE | 2018-05-21 00:08 | HP ---
HISTORY OF PRESENT ILLNESS: Samuel was just in the hospital with a very bad right knee swelling. He has septic knee joint. He was on IV antibiotics and he was sent home on IV antibiotics with a PICC line. He was seen by Dr. Webb, the orthopedic doctor [facility] and he felt that he should be in the hospital, so he sent him down to the emergency room. He was also here the other day in the emergency room as the right knee was getting more swollen but the labs were not that bad. He is on IV daptomycin, so the ER doctor felt he can continue with the treatment and rest the knee. Also the venous Doppler of the right leg was negative for few days ago. He is a 57-year-old man with a severe right knee infection and septic joint. He was on outpatient daptomycin, I believe by Dr. Shell, Infectious Disease doctor's orders and he was going to the [facility]fusion [facility] and it got worse, got more swollen, more painful and he came back to the hospital. He is HIV positive. He has got chronic low back pain. He has hypertension. He gets dizzy. He has a ruptured eardrum, hearing loss disorder. He had AIDS. He has cellulitis. He has got chronic back pain. He had a cyst removed from his forehead on 01/09/2018. FAMILY HISTORY: He has unknown family history. SOCIAL HISTORY: Never smoked. No alcohol. No drugs. ALLERGIES: HE HAS ALLERGY TO SUCCINYLCHOLINE. REVIEW OF SYSTEMS: No acute vision or hearing changes. No fever. He is fatigued. No shortness of breath, cough or sputum. No chest pain, palpitations, or syncope. No abdominal pain, diarrhea, nausea, or vomiting. No problems urinating. Does have back pain from time to time, but no neck pain. He had a little headache and dizziness but not at this moment. No focal weakness or changes at this time. No seizures. His right leg is swollen. His right leg is painful, has gotten more red. PHYSICAL EXAMINATION: VITAL SIGNS: He has a 98.4 temp, 107 pulse, 18 respiratory rate, 145/77 blood pressure, 95% O2 sat. GENERAL: He is well appearing, nontoxic and a little bit uncomfortable right now in the ER, but he is talking to me well. He understands why he is there. He is alert and oriented x3. HEENT: Head is atraumatic, normocephalic. Extraocular muscles are intact. Pupils equal and reactive to light. Throat is moist. NECK: Supple. HEART: Regular rate. Normal S1, S2. LUNGS: Clear to auscultation bilaterally with decreased breath sounds. ABDOMEN: Soft, nontender. Positive bowel sounds. EXTREMITIES: The right leg is swollen. It was more swollen when he was in the hospital first time and is not as red as the first time he was in the hospital but the knee is a little bit tense and not that hot even. Mild tenderness and erythema, he tells me it is killing him. The right knee has got a little bit red, little cellulitis going on, it is still also very tight to palpation around the knee, it is very swollen. NEUROLOGY: He has a GCS of 15. Cranial nerves II through XII grossly intact. Normal speech. PSYCHIATRIC: Alert and oriented x3. LABORATORY DATA: He has multiple tests done and ordered. He has a CBC and chemistry and lots of labs pending. Blood cultures pending. Urine cultures pending. He has a ultrasound of the right leg again pending. Chest x-ray pending. EKG pending. IMPRESSION AND PLAN: We are going to have consults with Infectious Disease and Orthopedics. He will be on IV antibiotics, put back on his medications and we will see what we find with the blood tests and they will call me later. He is here for septic right knee. He was on the outpatient with daptomycin, came to the emergency room few days ago. It got worsens then, now he is back in the ER. Rogelio Shirley DO
[2018-05-21] MEDS: Morphine 2 mg/ml ISec IVP PRN (01:09)
[2018-05-21 07:42] LABS: HEMOGLOBIN 13.4 g/dL (14.0-18.0); MEAN CORPUSCULAR HEMOGLOBIN 28.7 pg (25.0-35.0); MEAN CORPUSCULAR HGB CONC 33.8 g/dl (31.0-37.0); RBC 4.67 10^6/uL (3.5-6.1); RED CELL DISTRIBUTION WIDTH 12.8 % (11.5-14.5); WHITE BLOOD COUNT 10.5 10^3/ul (4.5-11.0)
[2018-05-21 07:50] LABS: ALBUMIN 3.9 g/dL (3.0-4.8); ALT/SGPT 28 U/L (7-56); AST/SGOT 28 U/L (17-59); BLOOD UREA NITROGEN 22 mg/dL (7-21); CALCIUM 9.4 mg/dL (8.4-10.5); GFR NON-AFRICAN AMERICAN > 60
--- NOTE | 2018-05-21 08:47 | PN ---
DATE: 05/21/2018 UPDATED REPORT LOCATION: Room 571, bed 1. The patient was admitted last night for his intense cellulitis of his right calf medially around the region of multiple surgical wounds from a previously done microphlebectomy at another institution and is recovering from a septic right knee with MRSA. Last night, he had the aspiration of the right knee, but they only got an milliliter and a half of fluid, which was sent for culture, but because of the tremendous cellulitis of his inner proximal right calf, it is probably about 3 inches x 5 inches with extreme induration. I will be putting heat on it and we will have that surgeon see him in case he does need an I and D or packing by Dr. Narendra Quiles, who has residents to help facilitate the care of the patient. We will follow him closely. Once we get culture back we may change the antibiotics with Dr. Shell's advice and Dr. Shirley will oversee everything. aFm Webb DO STEPHANIE
--- NOTE | 2018-05-21 09:06 | RAD ---
Date of service: 05/20/2018 HISTORY: Sepsis Patient COMPARISON: Chest radiographs 05/07/2018. FINDINGS: LUNGS: No active pulmonary disease. PLEURA: No significant pleural effusion identified, no pneumothorax apparent. CARDIOVASCULAR: Normal. OSSEOUS STRUCTURES: Unremarkable. VISUALIZED UPPER ABDOMEN: Elevated right hemidiaphragm reiterated. OTHER FINDINGS: None. IMPRESSION: No acute interval cardiopulmonary disease although right hemidiaphragm remains elevated. Etiology uncertain.
[2018-05-21] MEDS ORDERED: Sod Polystyrene Sulf 15 gm/60 ml Susp PO ONE (10:08)
[2018-05-21] MEDS: Emtricitabine-Tenofovir 200 mg-300 mg Tab PO SCH (10:36)
--- NOTE | 2018-05-21 13:03 | PN ---
DATE: 05/21/2018 SUBJECTIVE: He is here now on IV antibiotics for the right leg and left leg cellulitis and right wound in the knee septic joint. I put him on IV fluids, Cozaar, daptomycin, Elavil, Isentress, Lopressor, morphine for pain, Norvasc and Truvada. Now, the morphine he is very much complaining about that, that is why I put him on the IV fluids. When I gave the morphine, I had to give it way high up close to the IV bag and do it very slowly because he gets the bad headache when it is closer to the arm and it goes in fast, so I discussed that with the nurses and know what to do to give the morphine. PHYSICAL EXAMINATION: VITAL SIGNS: 98.2 temp, 90 pulse, 120/80 blood pressure, 18 respiratory rate, 95% O2 sat on room air. HEENT: His head is atraumatic, normocephalic. HEART: Regular rate. LUNGS: Decreased breath sounds, but clear. ABDOMEN: Soft. Right knee is swollen. EXTREMITIES: Swollen and a little bit red. LABORATORY DATA: He has a 10.5 white count, 13.4 hemoglobin, 39.7 hematocrit with 459 platelets. He has a 137 sodium; potassium is 5.1, I gave him a dose of Kayexalate; he has a 22 BUN; 0.6 creatinine; GFR is greater than 60; sugar is 156; calcium is 9.4; total bili is 0.5; AST is 28; ALT is 28; alk phos is 98. C-reactive protein is pending. Total protein is 7.9. Urine was clean. The aspiration of the knee is pending. Chest x-ray is clear. The venous Doppler is clear. ASSESSMENT AND PLAN: As far as Orthopedics was concerned, he feels it got worse, that is why he sent him to the emergency room with a right knee cellulitis. We will check his labs tomorrow. IV fluids. Go slowly with the morphine and we will see what other instructions Infectious Disease has for the right knee until we can get him on a discharge plan. He is here for septic right knee, on outpatient daptomycin with worsening of the right knee with increase in pain. Rogelio Shirley DO [facility] # [id number] STEPHANIE
--- NOTE | 2018-05-21 13:22 | CON ---
DATE: 05/21/2018 LOCATION: The patient is seen earlier today in 571, bed 1. CHIEF COMPLAINT: Right knee pain x1-2 days duration. HISTORY OF PRESENT ILLNESS: A 57-year-old male known to me from previous admission who was in the hospital with diagnosis of MRSA, right septic knee and the patient with history of hypertension, positive HIV and chronic back pain. His HIV is undetectable. He has good T-cells according to the patient and he has been compliant with his medication. He had received intravenous access and was discharged on IV antibiotics at home, now returns with a right knee pain and difficulty moving his knee and he denies any fevers, any chills, any nausea or vomiting. PAST MEDICAL HISTORY: Significant for positive HIV which is under control, hypertension, chronic back pain and recent diagnosis of MRSA, right septic knee, septic joint. PAST SURGICAL HISTORY: Significant for left hip. ALLERGIES: THE PATIENT IS ALLERGIC TO SUCCINYLCHOLINE. MEDICATIONS: Include his HIV medications and tramadol, raltegravir which is Isentress and Truvada, Elavil. The patient was also on daptomycin at home, although, his REX MRSA was 1, we were unable to reach adequate levels of vancomycin and the decision to go to IV daptomycin was made. PHYSICAL EXAMINATION: VITAL SIGNS: On exam, the patient is in bed with a temperature of 98, heart rate of 107 and respiratory rate of 18, blood pressure is 145/70. HEENT: Examination of HEENT is unremarkable. NECK: Supple. LUNGS: Have decreased breath sounds. HEART: Normal S1, S2. ABDOMEN: Soft, nontender. EXTREMITIES: Examination of right knee with limited with range of motion. It is swollen. He has difficulty ambulating. It is tender. Behind the right knee, he has an indurated area. No erythema at this time, however, it is indurated. The patient had a chest x-ray which was negative and the ultrasound for DVT was negative. Dr. Webb's note is reviewed. ASSESSMENT AND PLAN: A 57-year-old male who has positive human immunodeficiency virus, hypertension, chronic back pain. Now, must rule out recurrent right knee methicillin-resistant Staphylococcus aureus septic arthritis and we will continue daptomycin and we will ask Dr. Webb for an aspiration of the knee fluid and evaluate this synovial fluid for cultures and cell count. If it is still positive for methicillin-resistant Staphylococcus aureus, would recommend an open drainage. The patient before discharge had 2 and in last admission had 2 evaluations of the joint and they were both positive for methicillin-resistant Staphylococcus aureus. All his blood cultures have been negative. We will also order a CPK for his daptomycin and I will discuss with Dr. Webb and consider reviewing Dr. Quiles on consult for the indurated area behind the right knee. We will follow closely with you. Herb Shell MD
[2018-05-21] MEDS: Meropenem IV 1 gm in NS 50 ML IVPB SCH ×2 (14:12→21:06)
[2018-05-22] MEDS: Meropenem IV 1 gm in NS 50 ML IVPB SCH ×3 (05:21→21:49)
[2018-05-22 07:58] LABS: HEMOGLOBIN 13.4 g/dL (14.0-18.0); MEAN CELL VOLUME 84.3 fl (80.0-105.0); MEAN CORPUSCULAR HEMOGLOBIN 29.1 pg (25.0-35.0); MEAN CORPUSCULAR HGB CONC 34.5 g/dl (31.0-37.0); MEAN PLATELET VOLUME 8.9 fl (7.0-11.0); RBC 4.6 10^6/uL (3.5-6.1); RED CELL DISTRIBUTION WIDTH 12.8 % (11.5-14.5); WHITE BLOOD COUNT 11.9 10^3/ul (4.5-11.0)
[2018-05-22 08:08] LABS: ALBUMIN 3.9 g/dL (3.0-4.8); ALT/SGPT 35 U/L (7-56); AST/SGOT 28 U/L (17-59); BLOOD UREA NITROGEN 16 mg/dL (7-21); CALCIUM 9.1 mg/dL (8.4-10.5); GFR NON-AFRICAN AMERICAN > 60
[2018-05-22] MEDS: Emtricitabine-Tenofovir 200 mg-300 mg Tab PO SCH (10:38)
--- NOTE | 2018-05-22 10:58 | CT ---
Date of service: 05/21/2018 PROCEDURE: CT of the right lower extremity with contrast HISTORY: cellulitis R calf and knee COMPARISON: Comparison is made to the previous CT of the right knee without contrast dated 05/05/2018 TECHNIQUE: Axial and reformatted coronal and sagittal CT images of the right knee and leg were obtained after IV contrast administration FINDINGS: There is moderate amount of right knee joint effusion contains foci of air. There is a diffuse enhancing and thickening of the right knee synovial membrane. The possibility of infected joint effusion and septic arthritis should be excluded. There is enhancing wall fluid collection noted at the posterior aspect of the right knee extending to the proximal right leg also contains foci of air and likely continuous with the posterior aspect of the joint space. This fluid collection measures 11.5 centimeter in the low largest longitudinal diameter and 4.3 centimeter in the transverse diameter. The possibility of infected Cox cyst do also should be considered. Diffuse soft tissue edema noted. There is a defined subcutaneous fluid noted in the right leg more prominent anteriorly and laterally. The popliteal artery is patent. IMPRESSION: Moderate right knee joint effusion associated with diffuse enhancing of the synovial membrane and contains foci of air. The possibility of infected joint effusion and septic arthritis should be excluded. Large fluid collection posterior to the right knee joint extending to the right leg likely represent large Cox cyst also demonstrates diffuse enhancing wall and contains foci of air. The possibility of infected Cox cyst also should be considered. Diffuse soft tissue edema and small subcutaneous fluid noted in the right knee and right leg.
--- NOTE | 2018-05-22 12:40 | PN ---
DATE: 05/22/2018 SUBJECTIVE: He slept fairly well. He is resting in bed. His right knee is may be a little bit better than yesterday, may be 20% he tells me. It is not as swollen, not as painful. The back of the leg is puffy or painful. The knee itself is a little bit better. He is on IV fluids, Cozaar, Cubicin, Elavil, Isentress, Kayexalate, Lopressor, Merrem IV, morphine, Norvasc, Truvada and Zofran. PHYSICAL EXAMINATION VITAL SIGNS: 98.4 temperature, 94 pulse, 144/93 blood pressure. I increased his blood pressure medications, 18 respiratory rate, 96% O2 sat on room air. HEENT: His head is atraumatic, normocephalic. HEART: Regular rate. LUNGS: Decreased breath sounds, but clear. ABDOMEN: Soft. EXTREMITIES: Right knee is still swollen, but not as bad. Still hot, but not as hot. The calf is not as swollen and is not as red. All improved. LABORATORY DATA: He has a 10.5 white count, 13.4 hemoglobin, 39.7 hematocrit with 459 platelets. He has a 137 sodium; potassium is 5.1, that was yesterday, I gave him Kayexalate; BUN is 22; creatinine 0.6' GFR is greater than 60, and last blood sugar was 156. Calcium is 9.4, total bili is 0.5. AST is 28; ALT is 28; alkaline phosphatase 98. His C-reactive protein is quite high at 132.5, normal is 9.9 and below. ASSESSMENT AND PLAN: We will see what the aspirate of his knee says, when that report is back. He is on 2 antibiotics as per Infectious Disease. I am adjusting his blood pressure medications. The pain is a little bit better. I will check his labs tomorrow. Adjust his blood pressure medications given infection of the knee as per Infectious Disease and Orthopedics. Rogelio Shirley DO [facility]
--- NOTE | 2018-05-22 17:15 | CP.PCM.PN ---
Subjective - Date & Time of Evaluation Date of Evaluation: 05/22/18 Time of Evaluation: 14:15 - Subjective Subjective: Patient states that his right knee and leg is feeling better compared to previous days, no fevers this morning, no nausea, no diarrhea. Objective - Vital Signs/Intake and Output Vital Signs (last 24 hours): Temp Pulse Resp BP Pulse Ox 98 F 89 20 124/74 99 05/22/18 06:00 05/22/18 06:00 05/22/18 06:00 05/22/18 10:39 05/22/18 06:00 Intake and Output: 05/22/18 05/22/18 06:59 18:59 Intake Total 2300 Output Total 2400 1000 Balance -100 -1000 - Medications Medications: Current Medications Amitriptyline HCl (Elavil) 25 mg PO DAILY [facility] Last Admin: 05/22/18 10:39 Dose: 25 mg Amlodipine Besylate (Norvasc) 10 mg PO DAILY [facility] Last Admin: 05/22/18 10:39 Dose: 10 mg Emtricitabine/Tenofovir (Truvada 200 Mg-300 Mg) 1 tab PO DAILY [facility] Last Admin: 05/22/18 10:38 Dose: 1 tab Daptomycin 590 mg/ Sodium (Chloride) 100 mls @ 200 mls/hr IV Q24H [facility] Stop: 05/25/18 20:01 Last Admin: 05/21/18 21:05 Dose: 200 mls/hr Sodium Chloride (Sodium Chloride 0.45%) 1,000 mls @ 40 mls/hr IV .Q24H [facility] Meropenem (Merrem Iv 1 Gm Premix) 50 mls @ 100 mls/hr IVPB Q8 [facility] PRN Reason: Protocol Stop: 05/30/18 14:01 Last Admin: 05/22/18 05:21 Dose: 100 mls/hr Losartan Potassium (Cozaar) 100 mg PO DAILY [facility] Last Admin: 05/22/18 10:38 Dose: 100 mg Metoprolol Tartrate (Lopressor) 25 mg PO BID [facility] Last Admin: 05/22/18 10:39 Dose: 25 mg Morphine Sulfate (Morphine) 2 mg IVP Q4H PRN PRN Reason: Pain, moderate (4-7) Last Admin: 05/21/18 01:09 Dose: 2 mg Raltegravir (Isentress) 400 mg PO Q12 [facility] PRN Reason: Protocol Last Admin: 05/22/18 10:38 Dose: 400 mg - Labs Labs: 05/22/18 07:00 05/22/18 07:00 PT 13.3 SECONDS (9.4-12.5) H 05/20/18 18:39 INR 1.16 05/20/18 18:39 APTT 32.7 Seconds (25.1-36.5) 05/20/18 18:39 - Constitutional Appears: Chronically Ill - Head Exam Head Exam: NORMAL INSPECTION - Respiratory Exam Respiratory Exam: Decreased Breath Sounds - Cardiovascular Exam Cardiovascular Exam: +S1, +S2 - GI/Abdominal Exam GI & Abdominal Exam: Soft. absent: Tenderness - Extremities Exam Additional comments: right knee with decreased swelling, no tenderness, area of induration on medial proximal leg is not tender currently, no discharge noted Assessment and Plan - Assessment and Plan (Free Text) Plan: Assessment consider septic arthritis on the right knee with MRSA, has been on Daptomycin, with clinical worsening, need to rule out gout or pseudogout or ruptured Cox' s cyst chronic HIV infection Plan Blood cx are negative and the synovial fluid culture obtained 05/20/2018 is negative for 1 day - follow up final results and will continue IV Daptomycin and Merrem; CPK level is normal follow up evaluation by Surgery as requested by Ortho - may need surgery if bacteria are still present in the synovial fluid but so far negative x 1 day continue ART will continue to monitor clinically reviewed CT leg
[2018-05-23] MEDS: Meropenem IV 1 gm in NS 50 ML IVPB SCH ×3 (06:10→22:19)
[2018-05-23 08:14] LABS: HEMOGLOBIN 14.3 g/dL (14.0-18.0); MEAN CORPUSCULAR HEMOGLOBIN 28.3 pg (25.0-35.0); MEAN CORPUSCULAR HGB CONC 33.6 g/dl (31.0-37.0); RBC 5.06 10^6/uL (3.5-6.1); RED CELL DISTRIBUTION WIDTH 12.8 % (11.5-14.5); WHITE BLOOD COUNT 9.9 10^3/ul (4.5-11.0)
[2018-05-23 08:47] LABS: ALBUMIN 4.1 g/dL (3.0-4.8); ALT/SGPT 53 U/L (7-56); AST/SGOT 53 U/L (17-59); BLOOD UREA NITROGEN 15 mg/dL (7-21); CALCIUM 9.5 mg/dL (8.4-10.5); GFR NON-AFRICAN AMERICAN > 60
[2018-05-23] MEDS: Emtricitabine-Tenofovir 200 mg-300 mg Tab PO SCH (10:27)
[2018-05-23] MEDS: Sodium Chloride 0.45% 1,000 ML IV SCH (10:36)
--- NOTE | 2018-05-23 16:07 | CP.PCM.CON ---
History of Present Illness - History of Present Illness History of Present Illness: General Surgery Dr. Quiles 57 y/o M w/ PMHx of HIV, HTN, HLD presented to [facility] with R knee pain and swelling. According to the patient, the pain began a few weeks ago and became progressively worse. He was at [facility] several weeks before for R knee pain and was diagnosed with septic knee positive for MRSA. Pt was discharged on IV antibiotics via L PICC. Patient came back with worsening knee pain, attributed to "cellulitis," and pain rated as "50/10 pain" by the patient. Pt re-started on Daptomycin and Vanco changed Merrem. Pt reports improved Sx after starting Merrem. Pt had CT LE performed yesterday which revealed air in R knee joint and Cox's cyst w/ air present. Surgery consulted for possible infected Cox's cyst. Current, patient admitting improved pain and ROM of the knee. Patient is now able to ambulate. PMHx: see above, GERD Meds: reviwed in chart Allergies: Succinylcholine PSHx: ingrown toe nail removal, 2 inguinal hernia repairs, Vein stripping, micro phlebectomy. SHx: Denies alcohol, smoking, or illicit drug use FHx: noncontributory Review of Systems - Review of Systems All systems: reviewed and no additional remarkable complaints except (see HPI) Past Patient History - Infectious Disease Hx of Infectious Diseases: None - Past Social History Smoking Status: Never Smoked - CARDIAC Hx Cardiac Disorders: Yes Hx Hypertension: Yes - PULMONARY Hx Respiratory Disorders: No - NEUROLOGICAL Hx Neurological Disorder: Yes Hx Dizziness: Yes - HEENT Hx HEENT Problems: Yes Other/Comment: ruptured ear drum, hearing loss - RENAL Hx Chronic Kidney Disease: No - ENDOCRINE/METABOLIC Hx Endocrine Disorders: No - HEMATOLOGICAL/ONCOLOGICAL Hx Blood Disorders: Yes Hx AIDS: Yes - INTEGUMENTARY Hx Dermatological Problems: Yes Hx Cellulitis: Yes - MUSCULOSKELETAL/RHEUMATOLOGICAL Hx Musculoskeletal Disorders: Yes Hx Back Pain: Yes Hx Falls: No - GASTROINTESTINAL Hx Gastrointestinal Disorders: No - GENITOURINARY/GYNECOLOGICAL Hx Genitourinary Disorders: No - PSYCHIATRIC Hx Psychophysiologic Disorder: No - SURGICAL HISTORY Other/Comment: Cyst removed from forehead 09 Jan 2018 - ANESTHESIA Hx Anesthesia: Yes Hx Anesthesia Reactions: Yes Meds Allergies/Adverse Reactions: Allergies Allergy/AdvReac Type Severity Reaction Status Date / Time succinylcholine Allergy PAIN Verified 05/18/18 15:18 - Medications Medications: Current Medications Amitriptyline HCl (Elavil) 25 mg PO DAILY [facility] Last Admin: 05/23/18 10:27 Dose: 25 mg Amlodipine Besylate (Norvasc) 10 mg PO DAILY [facility] Last Admin: 05/23/18 10:27 Dose: 10 mg Emtricitabine/Tenofovir (Truvada 200 Mg-300 Mg) 1 tab PO DAILY [facility] Last Admin: 05/23/18 10:27 Dose: 1 tab Daptomycin 590 mg/ Sodium (Chloride) 100 mls @ 200 mls/hr IV Q24H [facility] Stop: 05/25/18 20:01 Last Admin: 05/22/18 20:20 Dose: 200 mls/hr Sodium Chloride (Sodium Chloride 0.45%) 1,000 mls @ 40 mls/hr IV .Q24H [facility] Last Admin: 05/23/18 10:36 Dose: Not Given Meropenem (Merrem Iv 1 Gm Premix) 50 mls @ 100 mls/hr IVPB Q8 [facility] PRN Reason: Protocol Stop: 05/30/18 14:01 Last Admin: 05/23/18 14:40 Dose: 100 mls/hr Losartan Potassium (Cozaar) 100 mg PO DAILY [facility] Last Admin: 05/23/18 10:27 Dose: 100 mg Metoprolol Tartrate (Lopressor) 25 mg PO BID [facility] Last Admin: 05/23/18 10:27 Dose: 25 mg Morphine Sulfate (Morphine) 2 mg IVP Q4H PRN PRN Reason: Pain, moderate (4-7) Last Admin: 05/21/18 01:09 Dose: 2 mg Raltegravir (Isentress) 400 mg PO Q12 [facility] PRN Reason: Protocol Last Admin: 05/23/18 10:27 Dose: 400 mg Tramadol HCl (Ultram) 100 mg PO BID PRN PRN Reason: Pain, moderate (4-7) Physical Exam - Constitutional Appears: Non-toxic, No Acute Distress - Head Exam Head Exam: NORMAL INSPECTION - Eye Exam Eye Exam: Normal appearance - ENT Exam ENT Exam: Mucous Membranes Moist - Respiratory Exam Respiratory Exam: NORMAL BREATHING PATTERN. absent: Accessory Muscle Use, Respiratory Distress - Cardiovascular Exam Cardiovascular Exam: absent: Bradycardia, Tachycardia - GI/Abdominal Exam GI & Abdominal Exam: Soft. absent: Distended, Tenderness - Extremities Exam Additional comments: LLE w/ multiple, well healed scars from varicose vein stripping RLE w/ same, well healed scars from varicose vein stripping. firm, mobile structure palpable in posterior calf. minimal TTP. no erythema, induration. full ROM at R ankle decreased knee flexion ROM. - Neurological Exam Neurological exam: Alert, Oriented x3 - Psychiatric Exam Psychiatric exam: Normal Affect, Normal Mood - Skin Skin Exam: Dry, Intact, Normal Color, Warm Results - Vital Signs Recent Vital Signs: Last Vital Signs Temp 98.9 F 05/23/18 06:00 Pulse 92 H 05/23/18 06:00 Resp 20 05/23/18 06:00 BP 147/99 H 05/23/18 06:00 Pulse Ox 98 05/23/18 06:00 - Labs Result Diagrams: 05/23/18 07:00 05/23/18 07:00 Labs: Laboratory Results - last 24 hr 05/23/18 05/23/18 07:00 07:00 WBC 9.9 RBC 5.06 Hgb 14.3 Hct 42.5 MCV 84.0 MCH 28.3 MCHC 33.6 RDW 12.8 Plt Count 484 H MPV 9.0 Sodium 138 Potassium 4.4 Chloride 103 Carbon Dioxide 25 Anion Gap 15 BUN 15 Creatinine 0.5 L Est GFR ( Amer) > 60 Est GFR (Non-Af Amer) > 60 Random Glucose 108 Calcium 9.5 Total Bilirubin 0.4 AST 53 ALT 53 Alkaline Phosphatase 85 Total Protein 8.1 Albumin 4.1 Globulin 4.1 Albumin/Globulin Ratio 1.0 L - Imaging and Cardiology CT scan - LE Status: Image reviewed by me, Report reviewed by me Assessment & Plan - Assessment and Plan (Free Text) Assessment: 57 y/o M w/ Hx of MRSA septic knee; now w/ fluid collection in posterior calf seen on CT - cont IV Abx per ID - monitor labs - monitor ROM - cont pain management - alternate heat and ice for pain - keep leg elevated for swelling - likely no surgical intervention at this time - will continue to follow Will discuss w/ Dr. Kb Silva DO PGY3
--- NOTE | 2018-05-23 18:25 | PN ---
DATE: 05/23/2018 SUBJECTIVE: The patient is seen in bed, in no acute distress. PHYSICAL EXAMINATION: VITAL SIGNS: On exam, temperature is 98, blood pressure is 140/90, respiratory rate 20, heart rate of 92. HEENT: Examination of HEENT is unremarkable. NECK: Supple. LUNGS: Have decreased breath sounds. HEART: Normal S1, S2. ABDOMEN: Soft. LABORATORY DATA: Laboratory examination reveals a white count of 9000 and hemoglobin of 14. BUN of 15, creatinine of 0.5. Urinalysis is noted and microbiology reveals the right knee culture is no growth. Blood cultures are no growth and the patient had a CAT scan of the knee, moderate right knee effusion associated with diffuse enhancing of synovial membrane and large fluid collection posterior to the right knee extending to right leg likely represent a large Cox's cyst and possibly an infected Cox cyst. Review of orders reveals the patient to be on daptomycin and meropenem. ASSESSMENT AND PLAN: A 57-year-old male with septic arthritis with methicillin-resistant Staphylococcus aureus, right knee septic joint, on daptomycin, now returns with infected Cox cyst in a patient with positive human immunodeficiency virus, on daptomycin, meropenem. The aspirate of the knee fluid culture is negative. We will follow with you. Dr. Francisco Javier Torres is consulted for possible aspiration of the fluid. Herb Shell MD
--- NOTE | 2018-05-23 18:37 | PN ---
DATE: 05/23/2018 SUBJECTIVE: I saw him in his isolation room. He is having headaches that are not going away. He is having problems with the morphine. He wants tramadol. Today, he tells me the of the right leg is starting to be a little bit better. He is on IV fluids; Cozaar; daptomycin; amitriptyline; Isentress; Lopressor; Merrem IV; morphine, please do not take it that much; Norvasc; Truvada; and I added tramadol. PHYSICAL EXAMINATION: VITAL SIGNS: He has a 98.9 temperature, 92 pulse, 147/99 blood pressure, quite high. I will adjust his blood pressure. Respiratory rate 20, 98% O2 sat on room air. HEENT: His head is atraumatic, normocephalic. HEART: Regular rate. LUNGS: Decreased breath sounds, but clear. ABDOMEN: Soft. EXTREMITIES: The right knee is still hot, but less swollen and less tender also. LABORATORY DATA: He has a 9.9 white count, better; 14.3 hemoglobin, 42.5 hematocrit with 484 platelets. He has 138 sodium, potassium 4.4. BUN is 15, creatinine 0.5. GFR is greater than 60. Sugar is 108. Calcium is 9.5. Total bili is 0.4. AST is 53, ALT is 53, alk phos 85. Total protein is 8.1. C-reactive protein is very high at 132.5. We will continue with aggressive treatment and care on this young man. He is being seen by Infectious Disease. Orthopedics. He had a lower extremity CAT scan which showed moderate right knee effusion, possible with infected joint, septic arthritis should be excluded, large fluid collection posterior to the knee. It is a large Cox cyst, possibility of an infected Cox cyst should be considered. I will also consult Surgery for evaluation and I will continue aggressive treatment for septic joint. Rogelio Shirley DO
[2018-05-24] MEDS: Meropenem IV 1 gm in NS 50 ML IVPB SCH ×3 (05:36→22:49)
[2018-05-24 06:58] LABS: HEMOGLOBIN 14.5 g/dL (14.0-18.0); MEAN CELL VOLUME 84.7 fl (80.0-105.0); MEAN CORPUSCULAR HEMOGLOBIN 28.8 pg (25.0-35.0); MEAN PLATELET VOLUME 8.8 fl (7.0-11.0); RBC 5.04 10^6/uL (3.5-6.1); RED CELL DISTRIBUTION WIDTH 12.9 % (11.5-14.5); WHITE BLOOD COUNT 10.6 10^3/ul (4.5-11.0)
[2018-05-24 07:29] LABS: ALBUMIN 3.8 g/dL (3.0-4.8); ALT/SGPT 67 U/L (7-56); AST/SGOT 44 U/L (17-59); BLOOD UREA NITROGEN 26 mg/dL (7-21); CALCIUM 9.3 mg/dL (8.4-10.5); GFR NON-AFRICAN AMERICAN > 60
[2018-05-24] MEDS: Emtricitabine-Tenofovir 200 mg-300 mg Tab PO SCH (09:53)
[2018-05-24] MEDS: Sodium Chloride 0.45% 1,000 ML IV SCH (09:54)
--- NOTE | 2018-05-24 10:12 | CP.PCM.PN ---
Subjective - Date & Time of Evaluation Date of Evaluation: 05/24/18 Time of Evaluation: 07:40 - Subjective Subjective: General Surgery consult note for Dr. Quiles Pt seen and examined at bedside with Dr. Quiles and Dr. Webb. No acute events overnight. Pt states he still has pain and swelling improved from admit currently well controlled with current pain medication, no numbness or weakness of the BL lower extremities. Objective - Vital Signs/Intake and Output Vital Signs (last 24 hours): Temp Pulse Resp BP Pulse Ox 98.5 F 97 H 20 148/93 H 97 05/24/18 06:00 05/24/18 09:53 05/24/18 06:00 05/24/18 09:53 05/24/18 06:00 Intake and Output: 05/24/18 05/24/18 06:59 18:59 Intake Total 1720 Balance 1720 - Medications Medications: Current Medications Amitriptyline HCl (Elavil) 25 mg PO DAILY [facility] Last Admin: 05/24/18 09:53 Dose: 25 mg Amlodipine Besylate (Norvasc) 10 mg PO DAILY [facility] Last Admin: 05/24/18 09:52 Dose: 10 mg Emtricitabine/Tenofovir (Truvada 200 Mg-300 Mg) 1 tab PO DAILY [facility] Last Admin: 05/24/18 09:53 Dose: 1 tab Daptomycin 590 mg/ Sodium (Chloride) 100 mls @ 200 mls/hr IV Q24H PINA Stop: 05/25/18 20:01 Last Admin: 05/23/18 21:07 Dose: 200 mls/hr Sodium Chloride (Sodium Chloride 0.45%) 1,000 mls @ 40 mls/hr IV .Q24H [facility] Last Admin: 05/24/18 09:54 Dose: 40 mls/hr Meropenem (Merrem Iv 1 Gm Premix) 50 mls @ 100 mls/hr IVPB Q8 PINA PRN Reason: Protocol Stop: 05/30/18 14:01 Last Admin: 05/24/18 05:36 Dose: 100 mls/hr Losartan Potassium (Cozaar) 100 mg PO DAILY [facility] Last Admin: 05/24/18 09:50 Dose: 100 mg Metoprolol Tartrate (Lopressor) 50 mg PO BID [facility] Oxycodone/Acetaminophen (Percocet 10/325 Mg Tab) 1 tab PO Q4H PRN PRN Reason: Pain, moderate (4-7) Raltegravir (Isentress) 400 mg PO Q12 PINA PRN Reason: Protocol Last Admin: 05/24/18 09:53 Dose: 400 mg - Labs Labs: 05/24/18 06:30 05/24/18 06:30 PT 13.3 SECONDS (9.4-12.5) H 05/20/18 18:39 INR 1.16 05/20/18 18:39 APTT 32.7 Seconds (25.1-36.5) 05/20/18 18:39 - Constitutional Appears: Well, Non-toxic, No Acute Distress - Head Exam Head Exam: ATRAUMATIC, NORMOCEPHALIC - Eye Exam Eye Exam: Normal appearance. absent: Conjunctival injection, Scleral icterus - ENT Exam ENT Exam: Mucous Membranes Moist, Normal Oropharynx - Respiratory Exam Respiratory Exam: NORMAL BREATHING PATTERN. absent: Accessory Muscle Use, Respiratory Distress - Cardiovascular Exam Cardiovascular Exam: RRR - GI/Abdominal Exam GI & Abdominal Exam: Soft. absent: Distended, Tenderness - Extremities Exam Additional comments: BL lower leg mild non-pitting edema. RLE with numerous small healing incisions, right knee swelling, minimal erythema, minimal tenderness, moderately decreased ROM in flexion - Neurological Exam Neurological Exam: Alert, Awake, Oriented x3 - Psychiatric Exam Psychiatric exam: Normal Affect, Normal Mood - Skin Skin Exam: Dry, Normal Color, Warm Assessment and Plan - Assessment and Plan (Free Text) Assessment: 57M with chronic septic joint refractory to percutaneous drainage with popliteal fossa with fluid collection with air Plan: No general surgical intervention planned at this time Recommend IR consult for percutaneous drainage of popliteal collection Continue current management Discussed and examined with Dr. Kb Stewart, PGY2
--- NOTE | 2018-05-24 10:38 | CT ---
Date of service: 05/24/2018 PROCEDURE: CT HEAD WITHOUT CONTRAST. HISTORY: h/a COMPARISON: None available. TECHNIQUE: Axial computed tomography images were obtained through the head/brain without intravenous contrast. Radiation dose: Total exam DLP = 947 mGy-cm. This CT exam was performed using one or more of the following dose reduction techniques: Automated exposure control, adjustment of the mA and/or kV according to patient size, and/or use of iterative reconstruction technique. FINDINGS: HEMORRHAGE: No intracranial hemorrhage. BRAIN: No mass effect or edema. No atrophy or chronic microvascular ischemic changes. VENTRICLES: There is mild ventriculomegaly. This could be due to volume loss. Possible normal pressure hydrocephalus CALVARIUM: Unremarkable. PARANASAL SINUSES: Unremarkable as visualized. No significant inflammatory changes. MASTOID AIR CELLS: Unremarkable as visualized. No inflammatory changes. OTHER FINDINGS: None. IMPRESSION: No acute intracranial findings There is mild ventriculomegaly. This could be due to volume loss. Possible normal pressure hydrocephalus
--- NOTE | 2018-05-24 12:08 | PN ---
DATE: 05/24/2018 SUBJECTIVE: I saw Samuel in isolation, resting comfortably in bed. His leg may be a little bit better, he is telling me. Overall, he is in fairly good spirits. He had Orthopedic see him already, waiting for the CAT scan of his head to take place. He is on Cozaar, daptomycin, IV Elavil, Isentress, Lopressor, Merrem IV, morphine, Norvasc, IV fluids, Truvada and Ultram. He also states that the Ultram is not helping even at 100 mg and I am going to try him on some Percocet to help him with his pain. He does not want the morphine, that gives him a bad headache. Also, there is possible plan for a needle in his Cox cyst, which might be infected. PHYSICAL EXAMINATION: VITAL SIGNS: He has a 98.5 temperature; 97 pulse; 148/93 blood pressure, I will adjust his medications; 20 respiratory rate, 97% O2 sat on room air. HEENT: Head is atraumatic, normocephalic. HEART: Regular rate. LUNGS: Decreased breath sounds. ABDOMEN: Soft. EXTREMITIES: This is the first day his right knee is not hot, it is actually cool and the swelling is also less. As far as our concern, it is the first day he is actually turning the corner. I think the Merrem is helping on top of the daptomycin. LABORATORY DATA: He has 10.6 white count, 14.5 hemoglobin, 42.7 hematocrit with 446 platelets. He has a 138 sodium, potassium 4.4, BUN 26, creatinine 0.6, GFR is greater than 60, sugar is 110, calcium is 9.3, total bili is 0.4, AST is 44, ALT is 67, alk phos 84, total protein is 7.6. ASSESSMENT AND PLAN: We will continue with aggressive treatment and care, being seen by Infectious Disease and by Surgery. There was diffuse soft tissue edema, small subcutaneous fluid noted in the right knee and the right leg, large fluid collected posterior to the right knee extending to the right leg likely representing a large Cox cyst, could be an infected Cox cyst that is we want to put a needle in. He has got right joint effusion, could be an infected joint so that is what we are treating. He will still continue with the IV antibiotics, possibility of a needle being placed in the Cox cyst to take up the fluid tomorrow, waiting for the CAT scan of his head to happen. He is still having this dizziness, hopefully that will get done. We are checking in his labs, checking his blood pressure and adjusting his pain medications. Continue with IV antibiotics for his right knee infection. Rogelio Shirley DO MTDD
--- NOTE | 2018-05-24 15:27 | PN ---
DATE: 05/24/2018 SUBJECTIVE: The patient is in bed, in no acute distress, nontoxic. PHYSICAL EXAMINATION: VITAL SIGNS: On exam, temperature is 98, blood pressure is 140/90, respiratory rate of 20, heart rate of 97. HEENT: Examination of HEENT is unremarkable. NECK: Supple. LUNGS: Have decreased breath sounds. HEART: Normal S1, S2. ABDOMEN: Soft. LABORATORY DATA: Laboratory examination reveals a white count of 10,000, hemoglobin of 14. Chemistries reveals a BUN of 26, creatinine of 0.6. Urinalysis is noted. Microbiology reveals the blood cultures are negative. The knee cultures are negative. ASSESSMENT AND PLAN: A 57-year-old male, who is positive human immunodeficiency virus and who was admitted with a methicillin-resistant Staphylococcus aureus right knee septic joint. Currently on daptomycin, meropenem. The patient had now returns with possible ruptured Cox cyst and waiting for Dr. Francisco Javier Torres's input. Overall, the patient is improving and is mobilizing. Herb Shell MD
[2018-05-24] MEDS: Oxycodone/Acetaminophen 10/325 mg Tab PO PRN ×2 (18:18→22:49)
[2018-05-25] MEDS: Meropenem IV 1 gm in NS 50 ML IVPB SCH ×3 (06:05→21:46)
[2018-05-25 07:15] LABS: HEMOGLOBIN 13.8 g/dL (14.0-18.0); MEAN CELL VOLUME 84.5 fl (80.0-105.0); MEAN CORPUSCULAR HEMOGLOBIN 28.5 pg (25.0-35.0); MEAN CORPUSCULAR HGB CONC 33.7 g/dl (31.0-37.0); MEAN PLATELET VOLUME 8.7 fl (7.0-11.0); RBC 4.85 10^6/uL (3.5-6.1); RED CELL DISTRIBUTION WIDTH 12.8 % (11.5-14.5); WHITE BLOOD COUNT 8.9 10^3/ul (4.5-11.0)
[2018-05-25 07:48] LABS: ALB/GLOB RATIO 1.1 (1.1-1.8); ALBUMIN 3.8 g/dL (3.0-4.8); ALT/SGPT 55 U/L (7-56); AST/SGOT 34 U/L (17-59); BLOOD UREA NITROGEN 27 mg/dL (7-21); CALCIUM 8.9 mg/dL (8.4-10.5); GFR NON-AFRICAN AMERICAN > 60
--- NOTE | 2018-05-25 08:26 | PN ---
DATE: 05/24/2018 LOCATION: Room 571, bed 2. The patient's clinical course is smooth. He feels he is always getting better everyday. He does have loculated fluid and that appears to be in the popliteal cyst region of the medial proximal right calf and I Dr. Kb Torres will be able to aspirate the fluid under CAT scan guidance or ultrasound guidance, so we will have a culture of the fluid in his popliteal cyst. As I did inject the knee a couple of days ago, only 1.5 mL came out, but the culture was negative so far, but we will see what we could do by taking the fluid out of the popliteal cyst, which is connected to the right knee joint. the reason for the asperation is to establish the fact how significant the infection is, so we will see if we have to change the antibiotics, but he is getting better everyday and more mobile and the right knee, he can move a little more and he is more comfortable. We will plan on getting an aspiration of the popliteal cyst, right leg, soon. Fam Webb DO MTDAdrianne
--- NOTE | 2018-05-25 08:29 | PN ---
DATE: 05/23/2018 SUBJECTIVE: A 57-year old male in room 571, bed 2. The patient is being treated for cellulitis of his right upper inner calf and it has dramatically improved when he first came in to the hospital on 05/20/2018 after being seen in the [facility] and his white count was going up for a septic knee, but actually turning out to be an intense cellulitis of his inner calf with indurated tissue and swelling, not so much of the knee, because aspiration of the knee did not disclose anything, but seen to have fluid that was negative so far per culture, but it is dramatically improved c the curnt antibiotic antibiotics and the pain is indicative that the cellulitis is getting better and his knee feels better and to me, there is no reason to operate on the right knee because anything he could have aspiration done on the Invasive Radiology to see if the fluid in the right calf is infected or not, but I do not want to do it at bedside or surgery without expertise of a Invasive Radiologist to help secure fluid from his calf without injuring the artery or nerve. So, we ill just follow his clinical course 1:51 and only operate on the knee if swell again, which is not. Fam Webb DO STEPHANIE
--- NOTE | 2018-05-25 08:32 | CP.PCM.PN ---
<CarolaKasey - Last Filed: 05/25/18 14:47> Subjective - Date & Time of Evaluation Date of Evaluation: 05/25/18 Time of Evaluation: 08:31 - Subjective Subjective: [id number] ID Progress note for Dr. Vasques Patient seen and examined at bedside. Nursing reported no acute events overnight. Patient was afebrile and denied subjective fever/chills. He reported he felt like his knee was improving and that he was able to bend his RLE more and is able to ambulate on it. He denied acute complaints of chest pain, palpitations, SOB, cough, abd pain, nausea, vomiting, bowel/bladder complaints. His RLE is more swollen than left. Patient continues to complains of dizziness and vertigo and that his "brain hurts" since he received morphine IV on his first day. Patient is eating well and having regular BM [last BM this AM] Objective - Vital Signs/Intake and Output Vital Signs (last 24 hours): Temp Pulse Resp BP Pulse Ox 98 F 81 20 104/75 98 05/25/18 08:15 05/25/18 08:15 05/25/18 08:15 05/25/18 08:15 05/25/18 08:15 Intake and Output: 05/25/18 05/25/18 06:59 18:59 Intake Total 1580 Balance 1580 - Medications Medications: Current Medications Amitriptyline HCl (Elavil) 25 mg PO DAILY [facility] Last Admin: 05/24/18 09:53 Dose: 25 mg Amlodipine Besylate (Norvasc) 10 mg PO DAILY [facility] Last Admin: 05/24/18 09:52 Dose: 10 mg Emtricitabine/Tenofovir (Truvada 200 Mg-300 Mg) 1 tab PO DAILY [facility] Last Admin: 05/24/18 09:53 Dose: 1 tab Daptomycin 590 mg/ Sodium (Chloride) 100 mls @ 200 mls/hr IV Q24H PINA Stop: 05/25/18 20:01 Last Admin: 05/24/18 20:45 Dose: 200 mls/hr Sodium Chloride (Sodium Chloride 0.45%) 1,000 mls @ 40 mls/hr IV .Q24H [facility] Last Admin: 05/24/18 09:54 Dose: 40 mls/hr Meropenem (Merrem Iv 1 Gm Premix) 50 mls @ 100 mls/hr IVPB Q8 PINA PRN Reason: Protocol Stop: 05/30/18 14:01 Last Admin: 05/25/18 06:05 Dose: 100 mls/hr Losartan Potassium (Cozaar) 100 mg PO DAILY [facility] Last Admin: 05/24/18 09:50 Dose: 100 mg Metoprolol Tartrate (Lopressor) 50 mg PO BID [facility] Last Admin: 05/24/18 18:10 Dose: 50 mg Oxycodone/Acetaminophen (Percocet 10/325 Mg Tab) 1 tab PO Q4H PRN PRN Reason: Pain, moderate (4-7) Last Admin: 05/24/18 22:49 Dose: 1 tab Raltegravir (Isentress) 400 mg PO Q12 PINA PRN Reason: Protocol Last Admin: 05/24/18 22:48 Dose: 400 mg - Labs Labs: 05/25/18 06:45 05/25/18 06:45 PT 13.3 SECONDS (9.4-12.5) H 05/20/18 18:39 INR 1.16 05/20/18 18:39 APTT 32.7 Seconds (25.1-36.5) 05/20/18 18:39 - Constitutional Appears: Non-toxic, No Acute Distress - Head Exam Head Exam: ATRAUMATIC, NORMAL INSPECTION, NORMOCEPHALIC - Eye Exam Eye Exam: EOMI, Normal appearance. absent: Conjunctival injection, Scleral icterus - ENT Exam ENT Exam: Mucous Membranes Moist - Neck Exam Neck Exam: Full ROM - Respiratory Exam Respiratory Exam: Clear to Ausculation Bilateral, NORMAL BREATHING PATTERN. absent: Accessory Muscle Use, Rales, Rhonchi, Wheezes, Respiratory Distress - Cardiovascular Exam Cardiovascular Exam: +S1, +S2 - GI/Abdominal Exam GI & Abdominal Exam: Soft, Normal Bowel Sounds. absent: Tenderness - Rectal Exam Rectal Exam: Deferred - Extremities Exam Additional comments: RLE more swollen than LLE - Neurological Exam Neurological Exam: Alert, Awake, CN II-XII Intact, Oriented x3 - Psychiatric Exam Psychiatric exam: Normal Affect, Normal Mood - Skin Skin Exam: Dry, Intact Assessment and Plan - Assessment and Plan (Free Text) Assessment: 57yo male PMHx HIV+ with undetetable viral load admitted for R knee septic joint Plan: -CT Lower extremity R 9/13: moderate R knee joint effusion associated with diffuse enhancing of the synovial membrane and contains foci of air. Possibility of infected joint effusion and septic arthritis should be excluded. Large fluid collection posterior to the right knee joint extending into the right leg likely represents large Cox cyst also demonstrates enhancing wall and contains foci of air. Possibility of injected Cox cyst should be considered. Diffuse soft tissue edema and small subcutaneous fluid noted in the right knee and right leg. -Duplex LE 05/20: negative for DVT -afebrile overnight; WBC 8.9 this AM -patient has had a total of 3 R knee arthrocentsis on prior hospital admission and this hospital admission by ortho Dr. Webb No general surgery intervention at this time IR consult paced for percutaneous drainage of popliteal collection -Right knee gram stain and culture 05/20: negative -Blood culture x 2 on 05/20: negative prelim -Synovial studies 05/08 WBC: 12861 RBC: 1000 Neutrophils: 97.1 Lymphocytes: 2.9 Monocytes: 0 -Synovial Fluid 05/08: +MRSA Synovial Fluid 05/06: +MRSA -Daptomycin 590mg daily started 05/11 - complete total of 4 weeks of abx regimen -Merrem 1gm q8 started 05/21 [end 05/30] -continue home ART medication for HIV -RPR, T Pallidum, Lyme negative Discussed with Dr. Caprice Srivastava PGY3 <Vinicio Vasques - Last Filed: 05/25/18 15:16> Objective - Vital Signs/Intake and Output Vital Signs (last 24 hours): Temp Pulse Resp BP Pulse Ox 98 F 81 20 110/78 98 05/25/18 08:15 05/25/18 08:15 05/25/18 08:15 05/25/18 10:27 05/25/18 08:15 Intake and Output: 05/25/18 05/25/18 06:59 18:59 Intake Total 1580 Balance 1580 - Medications Medications: Current Medications Amitriptyline HCl (Elavil) 25 mg PO DAILY [facility] Last Admin: 05/25/18 10:27 Dose: 25 mg Amlodipine Besylate (Norvasc) 10 mg PO DAILY [facility] Last Admin: 05/25/18 10:27 Dose: 10 mg Emtricitabine/Tenofovir (Truvada 200 Mg-300 Mg) 1 tab PO DAILY [facility] Last Admin: 05/25/18 10:27 Dose: 1 tab Daptomycin 590 mg/ Sodium (Chloride) 100 mls @ 200 mls/hr IV Q24H [facility]INA Stop: 05/25/18 20:01 Last Admin: 05/24/18 20:45 Dose: 200 mls/hr Sodium Chloride (Sodium Chloride 0.45%) 1,000 mls @ 40 mls/hr IV .Q24H [facility] Last Admin: 05/24/18 09:54 Dose: 40 mls/hr Meropenem (Merrem Iv 1 Gm Premix) 50 mls @ 100 mls/hr IVPB Q8 PINA PRN Reason: Protocol Stop: 05/30/18 14:01 Last Admin: 05/25/18 06:05 Dose: 100 mls/hr Losartan Potassium (Cozaar) 100 mg PO DAILY [facility] Last Admin: 05/25/18 10:28 Dose: 100 mg Metoprolol Tartrate (Lopressor) 50 mg PO BID [facility] Last Admin: 05/25/18 10:27 Dose: 50 mg Oxycodone/Acetaminophen (Percocet 10/325 Mg Tab) 1 tab PO Q4H PRN PRN Reason: Pain, moderate (4-7) Last Admin: 05/24/18 22:49 Dose: 1 tab Raltegravir (Isentress) 400 mg PO Q12 PINA PRN Reason: Protocol Last Admin: 05/25/18 10:27 Dose: 400 mg - Labs Labs: 05/25/18 06:45 05/25/18 06:45 PT 13.3 SECONDS (9.4-12.5) H 05/20/18 18:39 INR 1.16 05/20/18 18:39 APTT 32.7 Seconds (25.1-36.5) 05/20/18 18:39 Assessment and Plan - Assessment and Plan (Free Text) Plan: Infectious Diseases Attending Physician Addendum Patient discussed with medical front desk coordinator. I have reviewed the pertinent clinical information. 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
[2018-05-25] MEDS: Emtricitabine-Tenofovir 200 mg-300 mg Tab PO SCH (10:27)
--- NOTE | 2018-05-25 13:02 | PN ---
DATE: 05/25/2018 SUBJECTIVE: He is in bed. He slept fairly well. The right knee is giving him some pain, it is also swollen. I spoke to Orthopedics this morning and the plan is to get Interventional Radiology to put a needle into his infected Cox cyst, which is swollen in the leg. He is on Cozaar; daptomycin; Elavil; Isentress; Lopressor; Merrem; Norvasc; Percocet for pain, which is helping some; IV fluids and Truvada. PHYSICAL EXAMINATION: VITAL SIGNS: He has a 98 temp, 81 pulse, 104/75 blood pressure, 20 respiratory rate, 98% O2 sat on room air. He is eating a little bit. HEAD: Atraumatic, normocephalic. HEART: Regular rate. LUNGS: Decreased breath sounds, but clear. ABDOMEN: Soft. EXTREMITIES: The right leg was not hot yesterday, it is a little bit hotter today in the knee and swollen again; not so red. LABORATORY DATA: He has 8.9 white count; 13.8 hemoglobin; 41 hematocrit with 399 platelets, I do think that is the best white count he has had with the Merrem and the daptomycin; so, good combination for him. He has a 138 sodium, potassium 4.6, BUN 27, creatinine 0.6, GFR is greater than 60, sugar is 110, calcium is 8.9. Total bili is 0.5, AST is 34, ALT is 55, alk phos total protein is 7.4. ASSESSMENT AND PLAN: He is being seen by Infectious Disease, Surgery and Orthopedics. I am hoping that they could put the needle into his infected Cox cyst to take out the pus fluid, culture it, make sure on the right antibiotics. I am happy his white count finally under 10, it is 8.9. He also has human immunodeficiency virus besides his methicillin-resistant Staphylococcus aureus right knee septic joint. Continue aggressive treatment and care. Rogelio Shirley DO [facility]
[2018-05-25] MEDS: Oxycodone/Acetaminophen 10/325 mg Tab PO PRN ×2 (18:48→22:51)
[2018-05-26] MEDS: Oxycodone/Acetaminophen 10/325 mg Tab PO PRN ×5 (02:36→20:38)
[2018-05-26] MEDS: Meropenem IV 1 gm in NS 50 ML IVPB SCH ×3 (06:25→21:17)
[2018-05-26 07:21] LABS: HEMOGLOBIN 13.9 g/dL (14.0-18.0); MEAN CELL VOLUME 84.4 fl (80.0-105.0); MEAN CORPUSCULAR HEMOGLOBIN 28.1 pg (25.0-35.0); MEAN CORPUSCULAR HGB CONC 33.3 g/dl (31.0-37.0); MEAN PLATELET VOLUME 8.9 fl (7.0-11.0); RBC 4.95 10^6/uL (3.5-6.1); WHITE BLOOD COUNT 8.9 10^3/ul (4.5-11.0)
[2018-05-26 07:28] LABS: ALBUMIN 3.9 g/dL (3.0-4.8); ALT/SGPT 53 U/L (7-56); AST/SGOT 37 U/L (17-59); BLOOD UREA NITROGEN 30 mg/dL (7-21); CALCIUM 9.1 mg/dL (8.4-10.5); GFR NON-AFRICAN AMERICAN > 60
--- NOTE | 2018-05-26 09:03 | PN ---
DATE: 05/26/2018 SUBJECTIVE: I saw him with the orthopedic doctor in his room this morning. He is walking, was in the bathroom. He is taking Percocet 10/325 and it is helping the pain. He is on Cozaar, Elavil, Isentress, Lopressor, Merrem, Norvasc, Percocet, IV fluids and Truvada. OBJECTIVE: VITAL SIGNS: He has a 98.7 temperature, 82 pulse, 122/76 blood pressure, 18 respiratory rate, 97% O2 sat on room air. GENERAL: He is comfortable. He is eating well. He is walking well. The right leg is less swollen and less hot. HEENT: His head is atraumatic, normocephalic. HEART: Regular rate. LUNGS: Decreased breath sounds, but clear. ABDOMEN: Soft, nontender. EXTREMITIES: Much less swollen, not hot, not red, definitely improving. DATA: He has a 8.9 white count, 13.9 hemoglobin, 41.8 hematocrit with 368 platelets. He is staying stable which is good. He has a 138 sodium, potassium 4.8, BUN 30, creatinine 0.6. GFR is greater than 60. Sugar is 107, calcium is 9.1, total bili is 0.6, AST is 37, ALT is 53, alkaline phosphatase 88, total protein 7.7. He is being seen by Infectious Disease, Surgery, Orthopedics. There was to talk of putting a needle in his right knee posteriorly, but it is definitely getting smaller. There was a Cox's cyst. CAT scan of the head show no acute problems. He is having right knee MRSA, on daptomycin and Merrem. Continue Infectious Disease. Check his labs tomorrow. He is walking better in the room. The legs are swollen, is improving. Rogelio Shirley DO MTDD
[2018-05-26] MEDS: Emtricitabine-Tenofovir 200 mg-300 mg Tab PO SCH (10:15)
--- NOTE | 2018-05-26 20:40 | US ---
Date of service: 05/26/2018 PROCEDURE: Ultrasound-guided aspiration right popliteal abscess HISTORY: HIV positive. Infected right knee joint. Popliteal abscess, likely representing an infected Cox's cyst. COMPARISON: TECHNIQUE: The relative risks and indications of the procedure were explained the patient consent obtained. Patient placed prone on the stretcher and sonography of the right popliteal fossa performed. This revealed a complex 6 cm fluid collection in the right popliteal fossa. Its position is consistent with a Cox cyst. The skin was prepped and draped usual sterile fashion. 1 percent xylocaine was used anesthetize skin soft tissues. Under ultrasound guidance an 18 gauge needle was advanced into the collection and 35 cc of turbid synovial fluid aspirated. A microbiology specimen was sent. FINDINGS: IMPRESSION: Ultrasound-guided right popliteal abscess aspiration. 35 cc of turbid synovial fluid were obtained. A microbiology specimen was sent.
--- NOTE | 2018-05-26 20:49 | PN ---
DATE: 05/26/2018 SUBJECTIVE: The patient is in bed, in no acute distress, nontoxic. He states his leg is much improved. He is ambulating. PHYSICAL EXAMINATION: VITAL SIGNS: Temperature is 98, blood pressure is 130/80, respiratory rate 20, heart rate of 83. HEENT: Unremarkable. NECK: Supple. LUNGS: Decreased breath sounds. HEART: Normal S1, S2. ABDOMEN: Soft, nontender. EXTREMITIES: Examination of leg is noted and much improved. LABORATORY EXAMINATION: Reveals a white count of 8.6, hemoglobin of 13. Chemistries reveals the BUN of 30, creatinine of 0.6. Urinalysis is noted. Microbiology reveals the right knee cultures, no growth. Review of orders reveals the patient to be on daptomycin; meropenem; the patient is on raltegravir; emtricitabine/tenofovir, which is Truvada. 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 We will follow with you. Waiting for Dr. Francisco Javier Torres's input regarding possible aspiration of the Cox's cyst. Herb Shell MD
[2018-05-27] MEDS: Oxycodone/Acetaminophen 10/325 mg Tab PO PRN ×5 (00:08→21:20)
[2018-05-27] MEDS: Meropenem IV 1 gm in NS 50 ML IVPB SCH ×3 (06:19→20:07)
[2018-05-27 07:21] LABS: HEMOGLOBIN 13.9 g/dL (14.0-18.0); MEAN CELL VOLUME 84.7 fl (80.0-105.0); MEAN CORPUSCULAR HEMOGLOBIN 28.4 pg (25.0-35.0); MEAN CORPUSCULAR HGB CONC 33.6 g/dl (31.0-37.0); MEAN PLATELET VOLUME 8.9 fl (7.0-11.0); RBC 4.89 10^6/uL (3.5-6.1); WHITE BLOOD COUNT 8.8 10^3/ul (4.5-11.0)
[2018-05-27 07:42] LABS: ALB/GLOB RATIO 1.1 (1.1-1.8); ALBUMIN 3.9 g/dL (3.0-4.8); ALT/SGPT 45 U/L (7-56); AST/SGOT 35 U/L (17-59); BLOOD UREA NITROGEN 25 mg/dL (7-21); CALCIUM 9.8 mg/dL (8.4-10.5); GFR NON-AFRICAN AMERICAN > 60
--- NOTE | 2018-05-27 08:11 | CP.PCM.PN ---
<Nicolas Srivastavaima - Last Filed: 05/27/18 11:37> Subjective - Date & Time of Evaluation Date of Evaluation: 05/27/18 Time of Evaluation: 08:22 - Subjective Subjective: [id number] ID Progress note for Dr. Vasques Patient seen and examined at bedside. Nursing reported no acute events overnight. Patient is POD#1 u/s guided RLE cyst aspiration. Patient reports his pain has improved and his ROM of his RLE has significantly improved. He stated that his R knee and R calf seem much less swollen and less red. He denied any subjective fever, chills, headache, dizziness, chest pain, palpitations, SOB, cough, abd pain, nausea, vomiting, bowel/bladder complaints. Patient is ambulating around his room and eager to go home. Objective - Vital Signs/Intake and Output Vital Signs (last 24 hours): Temp Pulse Resp BP Pulse Ox 98.2 F 83 20 112/78 96 05/26/18 22:31 05/26/18 22:31 05/26/18 22:31 05/26/18 22:31 05/26/18 22:31 Intake and Output: 05/27/18 05/27/18 06:59 18:59 Intake Total 1620 Balance 1620 - Medications Medications: Current Medications Amitriptyline HCl (Elavil) 25 mg PO DAILY [facility] Last Admin: 05/26/18 10:16 Dose: 25 mg Amlodipine Besylate (Norvasc) 10 mg PO DAILY [facility] Last Admin: 05/26/18 10:15 Dose: 10 mg Emtricitabine/Tenofovir (Truvada 200 Mg-300 Mg) 1 tab PO DAILY [facility] Last Admin: 05/26/18 10:15 Dose: 1 tab Sodium Chloride (Sodium Chloride 0.45%) 1,000 mls @ 40 mls/hr IV .Q24H [facility] Last Admin: 05/24/18 09:54 Dose: 40 mls/hr Meropenem (Merrem Iv 1 Gm Premix) 50 mls @ 100 mls/hr IVPB Q8 [facility] PRN Reason: Protocol Stop: 05/30/18 14:01 Last Admin: 05/27/18 06:19 Dose: 100 mls/hr Daptomycin 590 mg/ Sodium (Chloride) 100 mls @ 200 mls/hr IV Q24H [facility] PRN Reason: Protocol Stop: 06/09/18 22:30 Last Admin: 05/26/18 21:21 Dose: 200 mls/hr Losartan Potassium (Cozaar) 100 mg PO DAILY [facility] Last Admin: 05/26/18 10:15 Dose: 100 mg Metoprolol Tartrate (Lopressor) 50 mg PO BID [facility] Last Admin: 05/26/18 17:34 Dose: 50 mg Oxycodone/Acetaminophen (Percocet 10/325 Mg Tab) 1 tab PO Q4H PRN PRN Reason: Pain, moderate (4-7) Last Admin: 05/27/18 06:59 Dose: 1 tab Raltegravir (Isentress) 400 mg PO Q12 [facility] PRN Reason: Protocol Last Admin: 05/26/18 21:14 Dose: 400 mg - Labs Labs: 05/27/18 07:00 05/27/18 07:00 PT 13.3 SECONDS (9.4-12.5) H 05/20/18 18:39 INR 1.16 05/20/18 18:39 APTT 32.7 Seconds (25.1-36.5) 05/20/18 18:39 - Constitutional Appears: Non-toxic, No Acute Distress - Head Exam Head Exam: ATRAUMATIC, NORMAL INSPECTION, NORMOCEPHALIC - Eye Exam Eye Exam: EOMI, Normal appearance, PERRL. absent: Conjunctival injection, Scleral icterus Pupil Exam: NORMAL ACCOMODATION - ENT Exam ENT Exam: Mucous Membranes Moist - Neck Exam Neck Exam: Full ROM - Respiratory Exam Respiratory Exam: NORMAL BREATHING PATTERN. absent: Accessory Muscle Use, Rales , Rhonchi, Wheezes, Respiratory Distress - Cardiovascular Exam Cardiovascular Exam: +S1, +S2 - GI/Abdominal Exam GI & Abdominal Exam: Soft, Normal Bowel Sounds. absent: Firm, Guarding, Rigid, Tenderness - Rectal Exam Rectal Exam: Deferred - Extremities Exam Extremities Exam: absent: Tenderness Additional comments: posterior right calf has dressing in place b/l LE trace non-pitting edema RLE with numerous small healing incisions R knee swelling much improved with minimal tenderness Moderately decreased ROM of R knee in flexion - Neurological Exam Neurological Exam: Alert, Awake, Oriented x3 - Psychiatric Exam Psychiatric exam: Normal Affect, Normal Mood - Skin Skin Exam: Dry, Warm Assessment and Plan - Assessment and Plan (Free Text) Assessment: 57yo male PMHx HIV+ with undetetable viral load admitted for R knee septic joint Plan: -Patient is POD#1 u/s guided RLE cyst aspiration f/u cultures -CT Lower extremity R 05/21: moderate R knee joint effusion associated with diffuse enhancing of the synovial membrane and contains foci of air. Possibility of infected joint effusion and septic arthritis should be excluded. Large fluid collection posterior to the right knee joint extending into the right leg likely represents large Cox cyst also demonstrates enhancing wall and contains foci of air. Possibility of injected Cox cyst should be considered. Diffuse soft tissue edema and small subcutaneous fluid noted in the right knee and right leg. -Duplex LE 05/20: negative for DVT -afebrile overnight; WBC 8.9 this AM -patient has had a total of 3 R knee arthrocentsis on prior hospital admission and this hospital admission by ortho Dr. Webb No general surgery intervention at this time IR consult paced for percutaneous drainage of popliteal collection -Right knee gram stain and culture 05/20: negative -Blood culture x 2 on 05/20: negative prelim -Synovial studies 05/08 WBC: 73615 RBC: 1000 Neutrophils: 97.1 Lymphocytes: 2.9 Monocytes: 0 -Synovial Fluid 05/08: +MRSA Synovial Fluid 05/06: +MRSA -Daptomycin 590mg daily started 05/11 - complete total of 4 weeks of abx regimen -Merrem 1gm q8 started 05/21 [end 05/30] -continue home ART medication for HIV -RPR, T Pallidum, Lyme negative -f/u surgery and IR reccs Discussed with Dr. Caprice Srivastava PGY3 <Vinicio Vasques - Last Filed: 05/27/18 14:23> Objective - Vital Signs/Intake and Output Vital Signs (last 24 hours): Temp Pulse Resp BP Pulse Ox 98.4 F 82 18 150/87 96 05/27/18 06:00 05/27/18 06:00 05/27/18 06:00 05/27/18 06:00 05/27/18 06:00 Intake and Output: 05/27/18 05/27/18 06:59 18:59 Intake Total 1620 Balance 1620 - Medications Medications: Current Medications Amitriptyline HCl (Elavil) 25 mg PO DAILY [facility] Last Admin: 05/27/18 09:49 Dose: 25 mg Amlodipine Besylate (Norvasc) 10 mg PO DAILY [facility] Last Admin: 05/27/18 09:49 Dose: 10 mg Emtricitabine/Tenofovir (Truvada 200 Mg-300 Mg) 1 tab PO DAILY [facility] Last Admin: 05/27/18 09:49 Dose: 1 tab Sodium Chloride (Sodium Chloride 0.45%) 1,000 mls @ 40 mls/hr IV .Q24H [facility] Last Admin: 05/24/18 09:54 Dose: 40 mls/hr Meropenem (Merrem Iv 1 Gm Premix) 50 mls @ 100 mls/hr IVPB Q8 [facility] PRN Reason: Protocol Stop: 05/30/18 14:01 Last Admin: 05/27/18 13:42 Dose: 100 mls/hr Daptomycin 590 mg/ Sodium (Chloride) 100 mls @ 200 mls/hr IV Q24H [facility] PRN Reason: Protocol Stop: 06/09/18 22:30 Last Admin: 05/26/18 21:21 Dose: 200 mls/hr Losartan Potassium (Cozaar) 100 mg PO DAILY [facility] Last Admin: 05/27/18 09:49 Dose: 100 mg Metoprolol Tartrate (Lopressor) 50 mg PO BID [facility] Last Admin: 05/27/18 09:49 Dose: 50 mg Oxycodone/Acetaminophen (Percocet 10/325 Mg Tab) 1 tab PO Q4H PRN PRN Reason: Pain, moderate (4-7) Last Admin: 05/27/18 13:42 Dose: 1 tab Raltegravir (Isentress) 400 mg PO Q12 [facility] PRN Reason: Protocol Last Admin: 05/27/18 09:49 Dose: 400 mg - Labs Labs: 05/27/18 07:00 05/27/18 07:00 PT 13.3 SECONDS (9.4-12.5) H 05/20/18 18:39 INR 1.16 05/20/18 18:39 APTT 32.7 Seconds (25.1-36.5) 05/20/18 18:39 Assessment and Plan - Assessment and Plan (Free Text) Plan: Infectious Diseases Attending Physician Addendum Patient seen, examined, discussed with medical records manager. I have reviewed the pertinent clinical information. 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 Shirley as outpatient (ideally once a week to monitor the knee) - discussed with patient that antibiotics are only a part of the whole therapy for the knee and there should also be discussion with Ortho as to what else to monitor and do for the knee - follow up cultures from the fluid from the Cox's cyst continue ART discussed this with the patient's nurse reviewed CT leg
[2018-05-27 08:30] VITALS: RESP 18
[2018-05-27] MEDS: Emtricitabine-Tenofovir 200 mg-300 mg Tab PO SCH (09:49)
--- NOTE | 2018-05-27 10:27 | PN ---
DATE: 05/27/2018 PROGRESS NOTE OR HOPEFULLY DISCHARGE SUMMARY SUBJECTIVE: He is here with an infected right knee. He has been on IV antibiotics for a while now. He still has a few more weeks to continue. He is on 2 antibiotics. He is on Cozaar, daptomycin. He is on Elavil, Isentress, Lopressor, Merrem, Norvasc, Percocet, IV fluids and Truvada. He had his knee aspirated yesterday. He is doing much better, less swollen, less pain. PHYSICAL EXAMINATION: GENERAL: He tells me he needs to go home today. He has got nobody else to take care of his dogs. The people that were taking care of his dogs cannot do it anymore. VITAL SIGNS: He has a 98.4 temp, 82 pulse, 150/87 blood pressure, 18 respiratory rate, 96% O2 sat on room air. HEENT: His head is atraumatic, normocephalic. HEART: Regular rate. LUNGS: Clear to auscultation. ABDOMEN: Soft, nontender. Positive bowel sounds. EXTREMITIES: The right knee is much less swollen. It is 80% better, not red, not hot, the best I have seen it. LABORATORY DATA: He has an 8.8 white count, 13.9 hemoglobin, 41.4 hematocrit with 315 platelets. He has a 139 sodium, potassium 4.7, BUN is 25, creatinine 0.6, GFR is greater than 60, sugar is 111, calcium is 9.8, total bili is 0.5, AST is 35, ALT is 45, alk phos 97, total protein 7.5. ASSESSMENT AND PLAN: I am hoping that possibly we could arrange for outpatient IV antibiotics to finish the treatment. He is human immunodeficiency virus positive. He has got a right knee methicillin-resistant Staphylococcus aureus septic arthritis. He has a ruptured, infected Cox cyst. He is on daptomycin and Merrem. Dr. Francisco Javier Torres put a needle in there and got out fluid, which is good. We will get this arranged to be discharged. We will work on this. I called in Quality Control Analyst and Case Management to see if they can help us arrange for outpatient IV antibiotics again. He is motivated to come three times a day if he has to to come to the infusion center or at home. Rogelio Shirley DO [facility] # [id number]
[2018-05-27 14:39] VITALS: BP 136/89; PULSE 80; TEMP 98; O2SAT 100
== END 2018-05-27 22:58 | disposition home or self-care (01) | DRG 603 ==
LOC: ED 16:12 → ERH 19:13 → 5RNO 21:12 → 5RSO 22:00
PROVIDERS: ADMIT Family Medicine; ATTEND Family Medicine
PROC: BQ47ZZZ Ultrasonography of Right Knee (ICD-10-PCS; 2018-05-26)
PROC: 0S9C3ZX Drainage of Right Knee Joint, Percutaneous Approach, Diagnostic (ICD-10-PCS; principal; 2018-05-26 16:30)
DX: L03.115 Cellulitis of right lower limb (principal); M00.00 Staphylococcal arthritis, unspecified joint; L03.116 Cellulitis of left lower limb; Z86.14 Personal history of Methicillin resistant Staphylococcus aureus infection; M71.21 Synovial cyst of popliteal space [Baker], right knee; Z21 Asymptomatic human immunodeficiency virus [HIV] infection status; B95.61 Methicillin susceptible Staphylococcus aureus infection as the cause of diseases classified elsewhere; E78.5 Hyperlipidemia, unspecified; G89.29 Other chronic pain; H91.90 Unspecified hearing loss, unspecified ear; I10 Essential (primary) hypertension; K21.9 Gastro-esophageal reflux disease without esophagitis

== ENCOUNTER 2018-06-04 03:03 | Inpatient (IN) | payer BC ==
[2018-06-04 03:04] VITALS: BMI 28.8
--- NOTE | 2018-06-04 03:13 | ED PDOC ---
Arrival/HPI - General Time Seen by Provider: 06/04/18 03:08 Historian: Patient - History of Present Illness Narrative History of Present Illness (Text): 06/04/18 03:13 Samuel Bell is a 57 year old male, whose past medial history includes hypertension, HIV, cellulitis, septic arthritis on IV antibiotics via PICC line, who presents to the emergency department brought in by EMS complaining of right leg pain. Patient states he has a history of right lower extremity cellulitis/MRSA and septic arthritis in his right lower extremity. Patient states he is on IV antibiotics, was recently admitted for evaluation of right leg cellulitis, and discharged home but feels symptoms are still not improving despite daily IV antibiotics. Patient states he has been experiencing worsening right lower extremity with associated pain to the area. Patient presented for further evaluation. Patient denies any fever, chills, chest pain, shortness of breath, abdominal pain, nausea, vomiting, diarrhea, urinary symptoms, back pain, neck pain, headache, dizziness, or any other complaints. Symptom Onset: Gradual Symptom Course: Unchanged Activities at Onset: Light Context: Home Past Medical History - Provider Review Nursing Documentation Reviewed: Yes - Infectious Disease Hx of Infectious Diseases: None - Cardiac Hx Pacemaker: No - Pulmonary Hx Respiratory Disorders: No - Neurological Hx Neurological Disorder: Yes Hx Dizziness: Yes - HEENT Hx HEENT Disorder: Yes Other/Comment: ruptured ear drum, hearing loss - Renal Hx Renal Disorder: No - Endocrine/Metabolic Hx Endocrine Disorders: No - Hematological/Oncological Hx Cancer: No - Integumentary Hx Dermatological Disorder: Yes Hx Cellulitis: Yes - Musculoskeletal/Rheumatological Hx Musculoskeletal Disorders: Yes Hx Back Pain: Yes Hx Falls: No - Gastrointestinal Hx Gastrointestinal Disorders: No - Genitourinary/Gynecological Hx Genitourinary Disorders: No - Psychiatric Hx Psychophysiologic Disorder: No Hx Substance Use: No - Surgical History Hx Mastectomy: No - Anesthesia Hx Anesthesia: Yes Hx Anesthesia Reactions: Yes Family/Social History - Physician Review Nursing Documentation Reviewed: Yes Family/Social History: Unknown Family HX Smoking Status: Never Smoked Hx Alcohol Use: No Hx Substance Use: No Allergies/Home Meds Allergies/Adverse Reactions: Allergies succinylcholine Allergy (Verified 06/04/18 03:17) PAIN Review of Systems - Physician Review All systems were reviewed & negative as marked: Yes - Review of Systems Constitutional: Normal. absent: Fevers Eyes: Normal ENT: Normal Respiratory: Normal. absent: SOB, Cough Cardiovascular: Normal. absent: Chest Pain Gastrointestinal: Normal. absent: Abdominal Pain, Diarrhea, Nausea, Vomiting Genitourinary Male: Normal. absent: Dysuria, Frequency, Hematuria, Urinary Output Changes Musculoskeletal: Other (+right lower extremity swelling/pain) Skin: Normal. absent: Rash Neurological: Normal. absent: Headache, Dizziness Endocrine: Normal Hemo/Lymphatic: Normal Psychiatric: Normal Physical Exam Vital Signs Reviewed: Yes Temperature: Febrile Blood Pressure: Normal Pulse: Regular Respiratory Rate: Normal Appearance: Positive for: Well-Appearing, Non-Toxic, Comfortable Pain Distress: None Mental Status: Positive for: Alert and Oriented X 3 - Systems Exam Head: Present: Atraumatic, Normocephalic Pupils: Present: PERRL Extroacular Muscles: Present: EOMI Conjunctiva: Present: Normal Mouth: Present: Moist Mucous Membranes Neck: Present: Normal Range of Motion Respiratory/Chest: Present: Clear to Auscultation, Good Air Exchange. No: Respiratory Distress, Accessory Muscle Use Cardiovascular: Present: Regular Rate and Rhythm, Normal S1, S2. No: Murmurs Abdomen: No: Tenderness, Distention, Peritoneal Signs Back: Present: Normal Inspection Upper Extremity: Present: Normal Inspection. No: Cyanosis, Edema Lower Extremity: Present: Normal Inspection, NORMAL PULSES, Normal ROM, Swelling (Right lower extremity swelling), Neurovascularly Intact, Capillary Refill < 2 s. No: Edema, Erythema, Deformity Neurological: Present: GCS=15, CN II-XII Intact, Speech Normal Skin: Present: Warm, Dry, Normal Color. No: Rashes Psychiatric: Present: Alert, Oriented x 3, Normal Insight, Normal Concentration Medical Decision Making ED Course and Treatment: 06/04/18 03:13 Impression: 57 year old male complaining of right lower extremity swelling/pain, currently on IV antibiotics for MRSA/cellulitis of right lower extremity. Plan: -- Labs, blood cultures -- Meropenem -- Reassess and disposition Prior Visits: Notes and results from previous visits were reviewed. Progress Notes: 06/04/18 05:[address] Shirley, who is aware and agrees with plan. Accepts pt in to his service. - Lab Interpretations I have reviewed the lab results: Yes - Scribe Statement The provider has reviewed the documentation as recorded by the Scribe Marlyn Valenzuelazon Provider Scribe Attestation: All medical record entries made by the Ulices were at my direction and personally dictated by me. I have reviewed the chart and agree that the record accurately reflects my personal performance of the history, physical exam, medical decision making, and the department course for this patient. I have also personally directed, reviewed, and agree with the discharge instructions and disposition. Disposition/Present on Arrival - Present on Arrival Any Indicators Present on Arrival: No History of DVT/PE: No History of Uncontrolled Diabetes: No Urinary Catheter: No History Surgical Site Infection Following: None - Disposition Have Diagnosis and Disposition been Completed?: Yes Diagnosis: Cellulitis Disposition: HOSPITALIZED Disposition Time: 06:00 Condition: FAIR
[2018-06-04] MEDS ORDERED: Meropenem IV 1 gm in NS 50 ML IVPB STA (03:19)
[2018-06-04 04:06] LABS: ALBUMIN 3.8 g/dL (3.0-4.8); ALT/SGPT 46 U/L (7-56); AST/SGOT 33 U/L (17-59); BLOOD UREA NITROGEN 29 mg/dL (7-21); CALCIUM 8.9 mg/dL (8.4-10.5); GFR NON-AFRICAN AMERICAN > 60
[2018-06-04 04:11] LABS: BASO # 0.04 K/mm3 (0.0-2.0); BASO % 0.4 % (0.0-3.0); EOS # 0.5 (0.0-0.7); EOS % 4.1 % (1.5-5.0); GRAN # 7.25 (1.4-6.5); GRAN % 66.6 % (50.0-68.0); HEMOGLOBIN 12.4 g/dL (14.0-18.0); LYMPH # 1.9 (1.2-3.4); LYMPH % 17.1 % (22.0-35.0); MEAN CELL VOLUME 84.4 fl (80.0-105.0); MEAN CORPUSCULAR HEMOGLOBIN 28.1 pg (25.0-35.0); MEAN CORPUSCULAR HGB CONC 33.3 g/dl (31.0-37.0); MEAN PLATELET VOLUME 9.6 fl (7.0-11.0); MONO # 1.3 (0.1-0.6); MONO % 11.8 % (1.0-6.0); RBC 4.41 10^6/uL (3.5-6.1); WHITE BLOOD COUNT 10.9 10^3/ul (4.5-11.0)
[2018-06-04] MEDS ORDERED: Morphine 4 mg/ml ISec IVP STA (05:16)
[2018-06-04] MEDS ORDERED: Oxycodone/Acetaminophen 5/325 mg Tab PO STA ×2 (05:27→05:46)
[2018-06-04] MEDS ORDERED: Piperacillin/Tazobact 3.375 gm 100 ML IVPB STA (05:46)
--- NOTE | 2018-06-04 12:31 | HP ---
HISTORY OF PRESENT ILLNESS: He is resting comfortably in bed now. He is a 57-year-old man, who has been treated in the outpatient for IV antibiotics. He has a PICC line. He has been on IV Merrem and daptomycin. He comes to the emergency room once again with a swelling and hot right knee. He is also being an article that how we should treat his HIV, MRSA, right knee infection. PAST MEDICAL HISTORY: He has a past medical history of hypertension, HIV, cellulitis, septic arthritis of the right knee. He has a PICC line in place. He has a right lower extremity cellulitis, MRSA, septic arthritis in the right lower extremity. He is on IV antibiotics for over a month now. He has been doing this from home, doing it himself. He was originally doing that going to the hospital, but when we gave him 2 antibiotics with three times a day, he decided to do it at home instead of being in the hospital. He has dizziness. He has a ruptured eardrum, hearing loss. He has cellulitis of the right leg, history of back pain. FAMILY HISTORY: Unknown family history. SOCIAL HISTORY: No smoking. No alcohol. No drugs. ALLERGIES: HE IS ALLERGIC TO SUCCINYLCHOLINE. REVIEW OF SYSTEMS: No acute vision or hearing changes. No sore throat. No shortness of breath or cough. No chest pain or palpitations. No abdominal pain, nausea, vomiting, constipation, diarrhea. No problems urinating. He is having right lower extremity swelling and pain. It is hot. It does look worse than when he was discharged the last time he was here. The right knee is a little bit red from the inflammation and cellulitis. No headaches or dizziness at this time. No sweating. He is not anxious or nervous. He is upset about being back in the hospital again. PHYSICAL EXAMINATION: VITAL SIGNS: He has a 97.8 temp; 82 pulse, it went up as high as 105 when he came in, it is 99.9 when he came in; 105 pulse, 144/72; 18 respiratory; 95% O2 sat when he got to the emergency room. They have all seemed to settle a little bit. His temperature is now 98. HEENT: His head is atraumatic, normocephalic. His extraocular muscles are intact. Pupils equally reactive to light and accommodation. Throat is moist. NECK: Supple. HEART: Regular rate. Normal S1 and S2. LUNGS: Decreased breath sounds, but clear to auscultation. ABDOMEN: Soft, nontender. Positive bowel sounds. No guarding. No rebound. No CVA tenderness. EXTREMITIES: He has got the right knee is swollen. It is red. It is hot to touch. NEUROLOGIC: GCS is 15. Cranial nerves II through XII grossly intact. Speech is normal. The right knee is warm. It is red a little bit. Alert and oriented x3. LYMPHATICS: Thyroid midline. No palpable appreciable lymphadenopathy. LABORATORY DATA: He has right now on lab 10.9 white count, 12.4 hemoglobin, 37.2 hematocrit with 305 platelets. 137 sodium, potassium 4.4, BUN 29, creatinine 0.6, GFR is greater than 60, sugar is 126, calcium is 8.9, total bili is 1, AST is 33, ALT is 46, alk phos 83, total protein 7.5, albumin is 3.8. IMPRESSION: He is going to have consults with Infectious Disease and Orthopedics. They both know the patient very well. He was restarted on his Merrem again and Zosyn one dose was given. Await and see what Infectious Disease wants to do about his IV antibiotics. I will put him back on his regular medications. We ordered a venous Doppler of the right leg again. He has had that before. We will see what this one says. Samuel Bell who has a right knee swelling and cellulitis and infected joint. Rogelio Shirley DO
--- NOTE | 2018-06-04 13:57 | CON ---
DATE: 06/04/2018 HISTORY OF PRESENT ILLNESS: This is a 57-year-old highly anxious male, who has positive HIV, who was initially admitted with MRSA right knee septic joint infection, arthritis. He was given antibiotics. Had returned with a Cox cyst and ruptured of the cyst. Meropenem was added to his daptomycin. Initially, the patient's MRSA was sensitive; however, daptomycin was chosen because not adequate vancomycin levels were achieved. Merrem was added to his second admission. All cultures now reveals to be negative. Now, returns with right knee pain and leg swelling. He has low-grade fevers of 99. No chills. No chest pain. He has got a PICC line, which he was getting daptomycin and meropenem at home. PAST MEDICAL HISTORY: Significant for hypertension, HIV, chronic back pain. PAST SURGICAL HISTORY: Significant for leg hip surgery. ALLERGIES: THE PATIENT IS ALLERGIC TO SUCCINYLCHOLINE. MEDICATIONS: His HIV medications are noted and reviewed. It include Isentress, which is raltegravir and Truvada, which is emtricitabine and tenofovir. The patient was also on daptomycin, meropenem and has a PICC line. PHYSICAL EXAMINATION: GENERAL: The patient is in bed. VITAL SIGNS: Temperature of 99, heart rate of 105, respiratory rate of 22, blood pressure is 120/60. HEENT: Examination of HEENT is unremarkable. NECK: Supple. LUNGS: Have decreased breath sounds. HEART: Normal S1 and S2. ABDOMEN: Soft, nontender. EXTREMITIES: Examination of leg is his calf is tender. His knees does not appear to be inflamed. He does have range of motion. No breaking of skin. His PICC line site is clean. LABORATORY DATA: Laboratory examination reveals the patient's white count is 10,000, hemoglobin of 12. Platelets are noted. Chemistries are reviewed. Review of microbiology from previous admissions revealed the initial synovial fluid culture is Staph aureus. ASSESSMENT AND PLAN: A 57-year-old male with methicillin-resistant Staphylococcus aureus septic joint with a peripherally inserted central catheter line, who was receiving daptomycin and meropenem, history of hypertension, chronic back pain, history of left hip replacement, now returns with a systemic inflammatory response syndrome with right leg tenderness. Must rule out a deep venous thrombosis or failure of treatment for the methicillin-resistant Staphylococcus aureus on daptomycin and meropenem unlikely. The patient insists that he should receive the meropenem and Zosyn. He has read that human immunodeficiency virus people have responded better with meropenem and Zosyn for methicillin-resistant Staphylococcus aureus eradication. I have explained to him that the study he is referring to does not say that. He is adamant about his antibiotic choices and not reasonable. At this point, we will use Zyvox and Zosyn. Discontinue the tramadol. We will order a CAT scan of the knee and leg. We will order Dopplers of the lower extremity, sedimentation rate and C-reactive protein and we will make further recommendations pending initial imaging and CAT scans. Herb Shell MD
[2018-06-04] MEDS ORDERED: Pneumococcal 23-Valent Vaccine IM ONE (13:58)
[2018-06-04] MEDS ORDERED: Influenza Vaccine 60 mcg/0.5 mL SYR (4YR UP) IM ONE (13:58)
--- NOTE | 2018-06-04 14:52 | US ---
PROCEDURE: Right lower extremity venous US HISTORY: Leg pain and swelling. Evaluate for DVT. PHYSICIAN(S): Francisco Javier Torres M.D. TECHNIQUE: Duplex sonography and color-flow Doppler with graded compression were used to evaluate the deep venous system of the right lower extremity. FINDINGS: The visualized deep venous system of the right lower extremity is sonographically normal and compressible. Normal waveforms and augmentation are seen. There is no sonographic evidence for deep venous thrombosis in the visualized segments of the right lower extremity. There is a large complex 5.4 x 7.4 cm fluid collection in the right popliteal fossa, consistent with a Cox cyst. IMPRESSION: 1. No sonographic evidence for deep venous thrombosis in the visualized segments of the right lower extremity.
[2018-06-04] MEDS: Oxycodone/Acetaminophen 10/325 mg Tab PO PRN ×2 (15:15→21:48)
[2018-06-04] MEDS: Linezolid 600 mg in D5W 300 ml 600 MG/300 ML BAG IVPB SCH ×2 (15:16→21:49)
--- NOTE | 2018-06-04 16:26 | CT ---
Date of service: 06/04/2018 PROCEDURE: RIGHT TIBIA AND FIBULA CT WITHOUT CONTRAST HISTORY: r/o effusions in the knee and leg cellulitis COMPARISON: Right knee CT without contrast 06/05/2018. TECHNIQUE: A volumetric CT acquisition was performed from the right femoral distal metaphysis to the right talus without intravenous contrast as requested. Reformatted cysts data sets from provided in multiple planes for added interpretation. Intravenous contrast was not administered as per referring physician request. Contrast Dose: None Radiation dose:Total exam DLP = 220.77 mGy-cm. This CT exam was performed using one or more of the following dose reduction techniques: Automated exposure control, adjustment of the mA and/or kV according to patient size, and/or use of iterative reconstruction technique. FINDINGS: Extensive cellulitis is seen throughout the right knee and leg soft tissues including at the visualized upper hindfoot diffusely. The upper portion of the suprapatellar bursa is not included in this examination with a likely equivalent suprapatellar bursitis present if not increased in the interval. A fluid collection within or medial to the medial gastric medius muscle is identified with emphysematous changes with a total measurement of 4.2 x 4.5 x 11.7 cm (transverse by anteroposterior by superoinferior dimensions. Emphysematous changes may be related to recent drainage procedure 05/26/2018 but abscess is not completely excluded nevertheless. Edematous changes are suggested at the medial gastric medius muscle suspicious for myositis. Lack images contrast limits the evaluation. No periosteal reactive changes seen throughout the tibia or fibula and there is no erosive process either, that would suggest definite osteomyelitis. MRI is available follow-up clinically warranted. Perisinus subcutaneous soft tissue density may indicate varices at the medial greater than lateral leg subcutaneous soft tissues. IMPRESSION: Increased medial right calf cystic changes are identified as described above. Trace emphysematous changes may reflect recent drainage procedure. Abscess is not excluded with the different diagnosis of recurring popliteal cyst. Persistent bursitis pattern is noted, potentially increased in the interval. No definitive osteomyelitis pattern however MRI is available for further characterization providing a more sensitive evaluation. Diffuse right knee/leg cellulitis as per above.
[2018-06-04] MEDS: Piperacillin/Tazobact 3.375 gm 100 ML IVPB SCH ×2 (18:01→23:09)
[2018-06-04] MEDS ORDERED: Oxycodone/Acetaminophen 2.5/325 mg Tab PO STA (23:49)
[2018-06-05] MEDS: Oxycodone/Acetaminophen 10/325 mg Tab PO PRN ×3 (03:16→23:36)
--- NOTE | 2018-06-05 05:48 | CON ---
DATE: 06/04/2018 ORTHOPEDIC REPORT LOCATION: Room 564, bed 2. HISTORY OF PRESENT ILLNESS: Patient was readmitted for some pain in his left knee area posterior mainly in relationship to the popliteal cyst that he had before. He is being treated for MRSA infection (methicillin-resistant staph aureus) with the combination of antibiotics. He was improving with less knee pain where he had a septic knee when he was admitted to the hospital to [facility] in approximately 05/05/2018 and he was getting frustrated and is considering going to [facility] and that may be the best option. , I am really reluctant to do any more surgery on him or any aspirations that he does not take through that well and he just may need more aggressive intervention orthopedically, but it is difficult for me to do at [facility] i he can see a subspecialist in this field. 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 Fam Webb DO STEPHANIE
[2018-06-05] MEDS: Piperacillin/Tazobact 3.375 gm 100 ML IVPB SCH ×4 (06:04→23:36)
[2018-06-05 07:08] LABS: HEMOGLOBIN 12.1 g/dL (14.0-18.0); MEAN CELL VOLUME 84.5 fl (80.0-105.0); MEAN CORPUSCULAR HGB CONC 33.2 g/dl (31.0-37.0); MEAN PLATELET VOLUME 9.4 fl (7.0-11.0); RBC 4.32 10^6/uL (3.5-6.1); RED CELL DISTRIBUTION WIDTH 12.9 % (11.5-14.5); WHITE BLOOD COUNT 8.4 10^3/ul (4.5-11.0)
[2018-06-05 07:30] LABS: ALBUMIN 3.5 g/dL (3.0-4.8); ALT/SGPT 37 U/L (7-56); AST/SGOT 30 U/L (17-59); BLOOD UREA NITROGEN 15 mg/dL (7-21); CALCIUM 8.6 mg/dL (8.4-10.5); GFR NON-AFRICAN AMERICAN > 60
[2018-06-05] MEDS ORDERED: Emtricitabine-Tenofovir 200 mg-300 mg Tab PO SCH (10:00)
[2018-06-05] MEDS: Emtricitabine-Tenofovir 200 mg-300 mg Tab PO SCH (10:04)
[2018-06-05] MEDS: Linezolid 600 mg in D5W 300 ml 600 MG/300 ML BAG IVPB SCH ×2 (10:05→21:43)
--- NOTE | 2018-06-05 11:12 | CP.PCM.PN ---
<Amanda Bridges - Last Filed: 06/05/18 11:09> Subjective - Date & Time of Evaluation Date of Evaluation: 06/05/18 Time of Evaluation: 08:20 - Subjective Subjective: PGY-3 ID resident progress note for Dr. Vasques. Patient with no acute overnight events. Patient complaining of his antibiotic regiments. Requesting to be giving zyvox and zosyn 4 times a day. Educated patient on the appropriate medication dosages. Otherwise states the right knee pain has improved and thinks the infection is improving overall. Denies fever or chills, no nausea, vomiting or diarrhea. Objective - Vital Signs/Intake and Output Vital Signs (last 24 hours): Temp Pulse Resp BP Pulse Ox 97.4 F L 82 18 120/72 96 06/05/18 06:00 06/05/18 06:00 06/05/18 06:00 06/05/18 10:05 06/05/18 06:00 Intake and Output: 06/05/18 06/05/18 06:59 18:59 Intake Total 740 Balance 740 - Medications Medications: Current Medications Amitriptyline HCl (Elavil) 25 mg PO DAILY [facility] Last Admin: 06/05/18 10:04 Dose: 25 mg Amlodipine Besylate (Norvasc) 10 mg PO DAILY [facility] Last Admin: 06/05/18 10:05 Dose: 10 mg Emtricitabine/Tenofovir (Truvada 200 Mg-300 Mg) 1 tab PO DAILY [facility] Last Admin: 06/05/18 10:04 Dose: 1 tab Piperacillin Sod/Tazobactam Sod (Zosyn 3.375 In Ns 100ml) 100 mls @ 200 mls/hr IVPB Q6 [facility]; Protocol Stop: 06/13/18 18:01 Last Admin: 06/05/18 06:04 Dose: 200 mls/hr Linezolid (Zyvox 600mg/300ml D5w) 600 mg in 300 mls @ 200 mls/hr IVPB Q12 [facility]; Protocol Stop: 06/12/18 13:06 Last Admin: 06/05/18 10:05 Dose: 200 mls/hr Losartan Potassium (Cozaar) 50 mg PO DAILY [facility] Last Admin: 06/05/18 10:04 Dose: 50 mg Metoprolol Tartrate (Lopressor) 25 mg PO BID [facility] Last Admin: 06/05/18 10:05 Dose: 25 mg Oxycodone/Acetaminophen (Percocet 10/325 Mg Tab) 1 tab PO TID PRN PRN Reason: Pain, severe (8-10) Last Admin: 06/05/18 03:16 Dose: 1 tab Raltegravir (Isentress) 400 mg PO Q12 [facility]; Protocol Last Admin: 06/05/18 10:04 Dose: 400 mg Tramadol HCl (Ultram) 50 mg PO Q8H PRN PRN Reason: Pain, moderate (4-7) Last Admin: 06/04/18 20:31 Dose: 50 mg - Labs Labs: 06/05/18 06:20 06/05/18 06:20 - Constitutional Appears: No Acute Distress - Head Exam Head Exam: ATRAUMATIC, NORMAL INSPECTION, NORMOCEPHALIC - Eye Exam Eye Exam: Normal appearance Pupil Exam: NORMAL ACCOMODATION - ENT Exam ENT Exam: Mucous Membranes Moist - Neck Exam Neck Exam: Normal Inspection - Respiratory Exam Respiratory Exam: Clear to Ausculation Bilateral, NORMAL BREATHING PATTERN. absent: Rales, Rhonchi, Wheezes, Respiratory Distress, Stridor - Cardiovascular Exam Cardiovascular Exam: REGULAR RHYTHM, +S1, +S2. absent: Murmur - GI/Abdominal Exam GI & Abdominal Exam: Soft, Normal Bowel Sounds. absent: Distended, Firm, Guarding, Rigid, Tenderness <Vinicio Vasques - Last Filed: 06/05/18 18:16> Objective - Vital Signs/Intake and Output Vital Signs (last 24 hours): Temp Pulse Resp BP Pulse Ox 98.3 F 81 18 140/96 H 96 06/05/18 14:00 06/05/18 14:00 06/05/18 14:00 06/05/18 17:06 06/05/18 14:00 Intake and Output: 06/05/18 06/05/18 06:59 18:59 Intake Total 740 Balance 740 - Medications Medications: Current Medications Amitriptyline HCl (Elavil) 25 mg PO DAILY [facility] Last Admin: 06/05/18 10:04 Dose: 25 mg Amlodipine Besylate (Norvasc) 10 mg PO DAILY [facility] Last Admin: 06/05/18 10:05 Dose: 10 mg Emtricitabine/Tenofovir (Truvada 200 Mg-300 Mg) 1 tab PO DAILY [facility] Last Admin: 06/05/18 10:04 Dose: 1 tab Piperacillin Sod/Tazobactam Sod (Zosyn 3.375 In Ns 100ml) 100 mls @ 200 mls/hr IVPB Q6 [facility]; Protocol Stop: 06/13/18 18:01 Last Admin: 06/05/18 17:07 Dose: 200 mls/hr Linezolid (Zyvox 600mg/300ml D5w) 600 mg in 300 mls @ 200 mls/hr IVPB Q12 [facility]; Protocol Stop: 06/12/18 13:06 Last Admin: 06/05/18 10:05 Dose: 200 mls/hr Losartan Potassium (Cozaar) 50 mg PO DAILY [facility] Last Admin: 06/05/18 10:04 Dose: 50 mg Metoprolol Tartrate (Lopressor) 25 mg PO BID [facility] Last Admin: 06/05/18 17:06 Dose: 25 mg Oxycodone/Acetaminophen (Percocet 10/325 Mg Tab) 1 tab PO TID PRN PRN Reason: Pain, severe (8-10) Last Admin: 06/05/18 17:05 Dose: 1 tab Raltegravir (Isentress) 400 mg PO Q12 [facility]; Protocol Last Admin: 06/05/18 10:04 Dose: 400 mg Tramadol HCl (Ultram) 50 mg PO Q8H PRN PRN Reason: Pain, moderate (4-7) Last Admin: 06/04/18 20:31 Dose: 50 mg - Labs Labs: 06/05/18 06:20 06/05/18 06:20 Assessment and Plan - Assessment and Plan (Free Text) Plan: Infectious Diseases Attending Physician Addendum Patient discussed with medical library assistant. I have reviewed the pertinent clinical information. I agree with the above findings, assessment and plan and in addition: Assessment continuing treatment for septic arthritis of the right knee with MRSA, had been on Daptomycin, withre-accumulation of Cox's cyst (it was drained 10 days ago on 05/26/2018) - all repeat cultures from the knee and Cox's cyst have been negative (after MRSA was obtained on patient's initial presentation) chronic HIV infection Plan reviewed CT leg - will continue Zyvox and Zosyn and follow up blood cx Ortho on the case and will follow up further plans for drainage of the Cox's cyst - would recommend surgery for the knee and Cox's cyst since this has recurred - patient may need transfer to a more specialized facility for this and we are awaiting recommendations of Ortho will monitor clinically continue cART for chronic HIV infection (well-controlled)
[2018-06-05] MEDS ORDERED: MethylPREDNISolone Depo 40 mg/ml Inj IM ONE (11:41)
[2018-06-05] MEDS ORDERED: Bupivacaine 0.5% Inj(30mL) IJ ONE (11:41)
--- NOTE | 2018-06-05 13:20 | PN ---
DATE: 06/05/2018 SUBJECTIVE: This is a patient who came in to the hospital with a swollen right knee, redness to the right knee, tenderness to the right knee and difficulty walking. He has been at home on daptomycin and Merrem and now he comes in with a little bit of worsening of it. He has his own thoughts of what antibiotics he wants to be on. We discussed that with Infectious Disease at length. He is comfortable though, the leg is a little bit better today with the current regimen of IV antibiotics so I am hoping he will continue the Infectious Disease IV antibiotics and Dr. Webb, the orthopedic doctor will put a needle in the knee to fine aspirate. OBJECTIVE: VITAL SIGNS: He has a 97.4 temperature, 82 pulse, 123/83 blood pressure, 18 respiratory rate, 96% O2 sat on room air. HEENT: Head is atraumatic, normocephalic. HEART: Regular rate. LUNGS: Decreased breath sounds, but clear. ABDOMEN: Soft, nontender. Positive bowel sounds. EXTREMITIES: The right knee is still swollen, still hot, less red, but decreased range of motion. Tender, difficult to walk on so it is inflamed again. DATA: He has a 8.4 white count, 12.1 hemoglobin, 36.5 hematocrit with 272 platelets. Sodium 138, potassium 4.2, BUN 50, creatinine 0.6, improved from his renal insufficiency. GFR is greater than 60, sugar is 143, calcium is 8.6, total bili is 0.4. AST is 30, ALT is 37, alk phos 76. C-reactive protein is high, greater than 15. Total protein is 7. We will continue with IV antibiotics. We are going to do the needle in the knee, try to get some aspirate. Continue with aggressive treatment and care. He is currently on Cozaar. He had Depo-Medrol, Elavil, Isentress, Lopressor, Merrem IV once, Percocet for pain, Truvada, Ultram, Zosyn and Zyvox. This is a patient with infected right knee. Wenceslao Shirley DO [facility] # [id number] STEPHANIE
[2018-06-06] MEDS ORDERED: Morphine 2 mg/ml ISec IVP STA (00:34)
[2018-06-06] MEDS: Piperacillin/Tazobact 3.375 gm 100 ML IVPB SCH ×3 (05:53→17:45)
[2018-06-06] MEDS: Oxycodone/Acetaminophen 10/325 mg Tab PO PRN (06:46)
[2018-06-06 08:53] LABS: HEMOGLOBIN 12.4 g/dL (14.0-18.0); MEAN CELL VOLUME 83.6 fl (80.0-105.0); MEAN CORPUSCULAR HEMOGLOBIN 27.8 pg (25.0-35.0); MEAN CORPUSCULAR HGB CONC 33.2 g/dl (31.0-37.0); MEAN PLATELET VOLUME 9.5 fl (7.0-11.0); RBC 4.46 10^6/uL (3.5-6.1); RED CELL DISTRIBUTION WIDTH 12.8 % (11.5-14.5); WHITE BLOOD COUNT 8.4 10^3/ul (4.5-11.0)
[2018-06-06 09:28] LABS: ALBUMIN 3.7 g/dL (3.0-4.8); ALT/SGPT 48 U/L (7-56); AST/SGOT 36 U/L (17-59); BLOOD UREA NITROGEN 17 mg/dL (7-21); CALCIUM 9.2 mg/dL (8.4-10.5); GFR NON-AFRICAN AMERICAN > 60
[2018-06-06] MEDS: Emtricitabine-Tenofovir 200 mg-300 mg Tab PO SCH (10:00)
[2018-06-06] MEDS: Linezolid 600 mg in D5W 300 ml 600 MG/300 ML BAG IVPB SCH ×2 (10:01→21:54)
--- NOTE | 2018-06-06 12:47 | PN ---
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 He is having right knee pain. He is on Cozaar, Elavil, Isentress, Lopressor, morphine, Norvasc, Percocet, Truvada, Ultram, Zosyn IV and Zyvox IV. OBJECTIVE: VITAL SIGNS: He has a 97.5 temperature, 61 pulse, 140/76 blood pressure, 20 respiratory rate, 95% O2 sat on room air. HEENT: His head is atraumatic, normocephalic. HEART: Regular rate. LUNGS: Decreased breath sounds, but clear. ABDOMEN: Soft. EXTREMITIES: Right knee not as swollen, not as hot, still with pain. Decreased range of motion. DATA: He has a 8.4 white count, 12.4 hemoglobin, 37.3 hematocrit with 283 platelets. Sodium 140, potassium 4, BUN 17, creatinine 0.7. GFR is greater than 60. Sugar is 107, calcium is 9.2. Total bili is 0.8, AST is 36, ALT is 48, alk phos 84, total protein 7.4, albumin is 3.7, globulin is 3.7. Procalcitonin is 0.12. We are going to continue with the IV antibiotics. Continue with Orthopedic and Infectious Disease care. Infectious Disease asked me to call in Surgery, evaluation for the right knee. I do think it is improved a little bit and gotten smaller since I aspirated; hopefully, get out of bed to chair daily. This is a patient who has got infected right knee. Rogelio Shirley DO MTDAdrianne
--- NOTE | 2018-06-06 15:16 | CP.PCM.PN ---
Subjective - Date & Time of Evaluation Date of Evaluation: 06/06/18 Time of Evaluation: 14:40 - Subjective Subjective: Still with pain in the right knee especially back of the leg, no fevers, with pain in his posterior leg as well. Objective - Vital Signs/Intake and Output Vital Signs (last 24 hours): Temp Pulse Resp BP Pulse Ox 97.5 F L 61 20 140/76 95 06/06/18 06:00 06/06/18 06:00 06/06/18 06:00 06/06/18 10:01 06/06/18 06:00 Intake and Output: 06/06/18 06/06/18 06:59 18:59 Intake Total 620 Balance 620 - Medications Medications: Current Medications Amitriptyline HCl (Elavil) 25 mg PO DAILY [facility] Last Admin: 06/06/18 10:00 Dose: 25 mg Amlodipine Besylate (Norvasc) 10 mg PO DAILY [facility] Last Admin: 06/06/18 10:01 Dose: 10 mg Emtricitabine/Tenofovir (Truvada 200 Mg-300 Mg) 1 tab PO DAILY [facility] Last Admin: 06/06/18 10:00 Dose: 1 tab Piperacillin Sod/Tazobactam Sod (Zosyn 3.375 In Ns 100ml) 100 mls @ 200 mls/hr IVPB Q6 [facility]; Protocol Stop: 06/13/18 18:01 Last Admin: 06/06/18 11:16 Dose: 200 mls/hr Linezolid (Zyvox 600mg/300ml D5w) 600 mg in 300 mls @ 200 mls/hr IVPB Q12 [facility]; Protocol Stop: 06/12/18 13:06 Last Admin: 06/06/18 10:01 Dose: 200 mls/hr Losartan Potassium (Cozaar) 50 mg PO DAILY [facility] Last Admin: 06/06/18 10:00 Dose: 50 mg Metoprolol Tartrate (Lopressor) 25 mg PO BID [facility] Last Admin: 06/06/18 10:01 Dose: 25 mg Morphine Sulfate (Morphine) 1 mg IVP Q3H PRN PRN Reason: Pain, moderate (4-7) Oxycodone/Acetaminophen (Percocet 10/325 Mg Tab) 1 tab PO TID PRN PRN Reason: Pain, severe (8-10) Last Admin: 06/06/18 06:46 Dose: 1 tab Raltegravir (Isentress) 400 mg PO Q12 [facility]; Protocol Last Admin: 06/06/18 10:00 Dose: 400 mg Tramadol HCl (Ultram) 50 mg PO Q8H PRN PRN Reason: Pain, moderate (4-7) Last Admin: 06/05/18 21:44 Dose: 50 mg - Labs Labs: 06/06/18 07:50 06/06/18 07:50 - Constitutional Appears: Chronically Ill - Head Exam Head Exam: NORMAL INSPECTION - Extremities Exam Additional comments: right knee with some swelling especially the back of the knee with some erythema Assessment and Plan - Assessment and Plan (Free Text) Plan: Assessment continuing treatment for septic arthritis of the right knee with MRSA, had been on Daptomycin, with re-accumulation of Cox's cyst (it was drained on 018) - all repeat cultures from the knee and Cox's cyst have been negative including yesterday's synovial fluid (after MRSA was obtained on patient's initial presentation) chronic HIV infection Plan reviewed CT leg - will continue Zyvox and Zosyn and re-check blood cx - will repeat blood cx - may consider other antibiotics combinations but MRSA was sensitive to both Daptomycin and Zyvox patient asking to be screened for parasites and will do stool for O and P Ortho on the case and will follow up further plans for drainage of the Cox's cyst - would recommend surgery for the knee and Cox's cyst since this has recurred - patient may need transfer to a more specialized facility for this and we are awaiting further recommendations of Ortho will continue to monitor clinically discussed with patient at length will discuss with Dr. Shirley continue cART for chronic HIV infection (well-controlled)
[2018-06-06] MEDS: Morphine 2 mg/ml ISec IVP PRN ×2 (17:43→23:24)
[2018-06-07] MEDS: Oxycodone/Acetaminophen 10/325 mg Tab PO PRN ×2 (02:32→16:52)
[2018-06-07] MEDS: Piperacillin/Tazobact 3.375 gm 100 ML IVPB SCH ×4 (05:56→18:09)
--- NOTE | 2018-06-07 06:34 | CP.PCM.CON ---
History of Present Illness - History of Present Illness History of Present Illness: General Surgery Consult Note for Dr. Quiles This is a 57M with a PMH of HIV, HTN, HLD presented to [facility] with expanding RLE "hardness". He was at [facility] in february for R knee pain and was diagnosed with septic knee positive for MRSA. Pt was discharged on IV antibiotics via L PICC. Patient reports the infection is spreading denies any fevers chills or chest pain. He reports full mobility of RLE. PMHx: HIV, HTN, HLD, GERD PSHx:inguinal hernia repair, Vein stripping Allergies: Succinylcholine SHx: Denies alcohol, smoking, or illicit drug use Review of Systems - Review of Systems All systems: reviewed and no additional remarkable complaints except - Constitutional Constitutional: absent: Anorexia, Chills - EENT Eyes: absent: Blurred Vision, Change in Vision Ears: absent: Ear Discharge, Ear Pain - Cardiovascular Cardiovascular: absent: Chest Pain, Dyspnea - Respiratory Respiratory: absent: Dyspnea, Dyspnea on Exertion - Gastrointestinal Gastrointestinal: absent: Abdominal Pain, Belching - Genitourinary Genitourinary: absent: Difficulty Urinating, Dysuria - Musculoskeletal Musculoskeletal: Arthralgias, Joint Swelling, Stiffness - Integumentary Integumentary: absent: Lesions, Pruritus Past Patient History - Infectious Disease Hx of Infectious Diseases: None - Past Social History Smoking Status: Never Smoked - CARDIAC Hx Cardiac Disorders: Yes Hx Hypertension: Yes ("only with mrsa" pt stated) Hx Pacemaker: No Hx Peripheral Edema: Yes (rle +2 pitting) - PULMONARY Hx Respiratory Disorders: No - NEUROLOGICAL Hx Neurological Disorder: Yes Hx Dizziness: Yes (vertigo) Other/Comment: headache from iv push "morphine" pt stated - HEENT Hx HEENT Problems: Yes Other/Comment: ruptured ear drum, hearing loss at does not remember what ear, when pt was in his 20's 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 - RENAL Hx Chronic Kidney Disease: No - ENDOCRINE/METABOLIC Hx Endocrine Disorders: No - HEMATOLOGICAL/ONCOLOGICAL Hx Blood Disorders: Yes (septic arthritis on iv abx) Hx AIDS: Yes Hx Cancer: No Hx Human Immunodeficiency Virus (HIV): Yes - INTEGUMENTARY Hx Dermatological Problems: Yes Other/Comment: 3 large callouses ball of right foot, multiple small red indentation mrks on right leg from thigh down, and left thigh, Left thigh has 2 bandaids from microphlebectomy done on 04/15/18, 04/22/18, 04/29/18, right leg +2 pitting edema skin tight redness warmth skin discoloratin and hardness behind right knee, right knee swollen - MUSCULOSKELETAL/RHEUMATOLOGICAL Hx Musculoskeletal Disorders: Yes Hx Back Pain: Yes (since fall 04/2018) Hx Falls: Yes (04/2018) Hx Unsteady Gait: Yes Other/Comment: twisted r leg 05/04/18, dislocated 2nd toe right foot "needs sx" pt stated - GASTROINTESTINAL Hx Gastrointestinal Disorders: No - GENITOURINARY/GYNECOLOGICAL Hx Genitourinary Disorders: No - PSYCHIATRIC Hx Psychophysiologic Disorder: No Hx Substance Use: No - SURGICAL HISTORY Hx Mastectomy: No Other/Comment: anesthesia reaction pt became paralyzed and rigid, rue picc - ANESTHESIA Hx Anesthesia: Yes Hx Anesthesia Reactions: Yes Meds Allergies/Adverse Reactions: Allergies Allergy/AdvReac Type Severity Reaction Status Date / Time succinylcholine Allergy PAIN Verified 06/04/18 03:17 - Medications Medications: Current Medications Amitriptyline HCl (Elavil) 25 mg PO DAILY [facility] Last Admin: 06/06/18 10:00 Dose: 25 mg Amlodipine Besylate (Norvasc) 10 mg PO DAILY [facility] Last Admin: 06/06/18 10:01 Dose: 10 mg Emtricitabine/Tenofovir (Truvada 200 Mg-300 Mg) 1 tab PO DAILY [facility] Last Admin: 06/06/18 10:00 Dose: 1 tab Piperacillin Sod/Tazobactam Sod (Zosyn 3.375 In Ns 100ml) 100 mls @ 200 mls/hr IVPB Q6 [facility]; Protocol Stop: 06/13/18 18:01 Last Admin: 06/07/18 05:57 Dose: 200 mls/hr Linezolid (Zyvox 600mg/300ml D5w) 600 mg in 300 mls @ 200 mls/hr IVPB Q12 [facility]; Protocol Stop: 06/12/18 13:06 Last Admin: 06/06/18 21:54 Dose: 200 mls/hr Losartan Potassium (Cozaar) 50 mg PO DAILY [facility] Last Admin: 06/06/18 10:00 Dose: 50 mg Metoprolol Tartrate (Lopressor) 25 mg PO BID [facility] Last Admin: 06/06/18 17:42 Dose: 25 mg Morphine Sulfate (Morphine) 1 mg IVP Q3H PRN PRN Reason: Pain, moderate (4-7) Last Admin: 06/06/18 23:24 Dose: 1 mg Oxycodone/Acetaminophen (Percocet 10/325 Mg Tab) 1 tab PO TID PRN PRN Reason: Pain, severe (8-10) Last Admin: 06/07/18 02:32 Dose: 1 tab Raltegravir (Isentress) 400 mg PO Q12 [facility]; Protocol Last Admin: 06/06/18 21:52 Dose: 400 mg Tramadol HCl (Ultram) 50 mg PO Q8H PRN PRN Reason: Pain, moderate (4-7) Last Admin: 06/05/18 21:44 Dose: 50 mg Physical Exam - Constitutional Appears: Non-toxic, No Acute Distress - Head Exam Head Exam: ATRAUMATIC, NORMOCEPHALIC - Eye Exam Eye Exam: EOMI - ENT Exam ENT Exam: Mucous Membranes Moist - Respiratory Exam Respiratory Exam: NORMAL BREATHING PATTERN - Cardiovascular Exam Cardiovascular Exam: +S1, +S2 - GI/Abdominal Exam GI & Abdominal Exam: Soft. absent: Firm, Guarding, Hernia, Rigid, Tenderness - Neurological Exam Neurological exam: Alert, Oriented x3 - Psychiatric Exam Psychiatric exam: Normal Affect, Normal Mood - Skin Skin Exam: Dry, Intact Results - Vital Signs Recent Vital Signs: Last Vital Signs Temp 97.5 F L 06/06/18 06:00 Pulse 61 06/06/18 06:00 Resp 20 06/06/18 06:00 BP 120/68 06/06/18 17:42 Pulse Ox 95 06/06/18 06:00 - Labs Result Diagrams: 06/06/18 07:50 06/06/18 07:50 Labs: Laboratory Results - last 24 hr 06/06/18 06/06/18 07:50 07:50 WBC 8.4 RBC 4.46 Hgb 12.4 L Hct 37.3 L MCV 83.6 MCH 27.8 MCHC 33.2 RDW 12.8 Plt Count 283 MPV 9.5 Sodium 140 Potassium 4.0 Chloride 102 Carbon Dioxide 28 Anion Gap 14 BUN 17 Creatinine 0.7 L Est GFR ( Amer) > 60 Est GFR (Non-Af Amer) > 60 Random Glucose 107 Calcium 9.2 Total Bilirubin 0.8 AST 36 ALT 48 Alkaline Phosphatase 84 Total Protein 7.4 Albumin 3.7 Globulin 3.7 Albumin/Globulin Ratio 1.0 L Assessment & Plan - Assessment and Plan (Free Text) Assessment: 7M with RLE Cellulitis Continue ABX RLE elevation Coordinate possible OR with Dr. Mcleod Further recs per Dr. Kb García PGY3
[2018-06-07 08:41] LABS: HEMOGLOBIN 12.2 g/dL (14.0-18.0); MEAN CELL VOLUME 83.5 fl (80.0-105.0); MEAN CORPUSCULAR HEMOGLOBIN 27.5 pg (25.0-35.0); MEAN PLATELET VOLUME 9.3 fl (7.0-11.0); RBC 4.43 10^6/uL (3.5-6.1); RED CELL DISTRIBUTION WIDTH 12.9 % (11.5-14.5); WHITE BLOOD COUNT 8.9 10^3/ul (4.5-11.0)
[2018-06-07 08:58] LABS: ALBUMIN 3.8 g/dL (3.0-4.8); ALT/SGPT 48 U/L (7-56); AST/SGOT 38 U/L (17-59); BLOOD UREA NITROGEN 18 mg/dL (7-21); CALCIUM 9.2 mg/dL (8.4-10.5); GFR NON-AFRICAN AMERICAN > 60
[2018-06-07] MEDS: Emtricitabine-Tenofovir 200 mg-300 mg Tab PO SCH (11:09)
[2018-06-07] MEDS: Morphine 2 mg/ml ISec IVP PRN ×2 (11:10→20:58)
--- NOTE | 2018-06-07 12:17 | PN ---
DATE: 06/07/2018 UPDATED REPORT LOCATION: Room 564, bed 2. Patient is a little bit upset about his progress and he is mentioning to me that he wants to go to a special hospital for infection, primarily MRSA with HIV background and I encouraged him that he is not a prisoner here and if that is what he wants to do, he should make an effort to go to another institution and has more help improving his frustration. He still has induration of the right leg and I do not see anywhere where I can operate to make him better. The last aspirate of his right knee from the medial side did not show any infection with the blood returned, which basically is tissue fluid. The white count is coming down, but he is not satisfied enough and he has induration of the posterior region of the proximal calf medially and this is proving a resistance to get better and so I suggested a second opinion would be reasonable. It is up to him to make that decision and he may be willing to do that. Right now, the antibiotics are helping, but he is expecting more. So rather than frustrating him, he should be free to go for another opinion with an Infectious specialist with background in that field. Fam Webb DO
--- NOTE | 2018-06-07 12:55 | CT ---
Date of service: 06/07/2018 PROCEDURE: CT right lower extremity HISTORY: Pain , swelling COMPARISON: 06/04/2018 CT right lower extremity TECHNIQUE: 2.5 mm axial acquisition and display. Coronal and sagittal reconstructions. Dose report (mGy-cm): 1186.85 Anatomic area of coverage: Super acetabular region to the tibial plateau. FINDINGS: Diffuse edema visible right lower extremity. The edematous changes are primarily medial and lateral. There is trace fluid about the vastus lateralis musculature. Suprapatellar effusion is again identified. Punctate foci of air identified within this complex effusion. This suggest prior instrumentation. If attempted aspiration has not been performed consideration to gas-forming organism. Fat identified within the suprapatellar bursa finding seen previously. No CT manifestations of acute osteomyelitis. Incomplete visualization of cystic process in the gastrocnemius muscle. This finding was seen previously although coverage is different and meaningful comparison is difficult. There are locules or septa within this process. IMPRESSION: Diffuse edematous changes within the visible right lower extremity. Punctate foci of air within the joint effusion suggests instrumentation. In the absence of instrumentation however gas-forming organism should be considered. Incompletely visualized cystic fluid collection gastrocnemius muscle a finding identified previously. No compelling evidence for an acute osseous process/osteomyelitis.
--- NOTE | 2018-06-07 13:06 | CP.PCM.PN ---
Subjective - Date & Time of Evaluation Date of Evaluation: 06/07/18 Time of Evaluation: 11:30 - Subjective Subjective: I discussed with Dr. Shirley today that the patient needs to be transferred to a more specialized facility capable of taking care of the Cox's cyst, or other surgically-related procedures related to the knee. 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 Initial aspiration in April grew MRSA, but subsequent visits with arthrocentesis, including the last drainage of the Cox's cyst are all negative. Patient has been on Daptomycin but again has swelling especially at the back of the knee, with the proximal calf area also with erythema and swelling, which is likely related to the Cox's cyst. He is undergoing another CT leg today as per Dr. Shirley and we will await the results. I have also spoken with Dr. Webb who also recommends the patient to go to a more spec ialized facility. I specifically asked him about surgery for the knee and the Cox's cyst, and thought that he is not sure about that, but that in another facility they may have a better way of assessing this and taking care of this. Again, he has been on proper antibiotic coverage for MRSA septic arthritis initially with Daptomycin and now on Linezolid and all subsequent synovial fluid and Cox's cyst fluid cultures are negative, meaning there is clearance of the bacteria from the synovial fluid with antibiotic therapy. Zosyn was added pending the final culture results of the synovial fluid taken 2 days ago. Again, discussed with Dr. Shirley and we both agree that patient needs to be transferred to a more specialized facility to treat his knee and Cox's cyst. Will continue antibiotics. Patient continues to be afebrile and WBC count has normalized. Objective - Vital Signs/Intake and Output Vital Signs (last 24 hours): Temp Pulse Resp BP Pulse Ox 98.2 F 90 20 135/85 97 06/07/18 06:00 06/07/18 06:00 06/07/18 06:00 06/07/18 11:09 06/07/18 06:00 Intake and Output: 06/07/18 06/07/18 06:59 18:59 Intake Total 500 Balance 500 - Medications Medications: Current Medications Amitriptyline HCl (Elavil) 25 mg PO DAILY [facility] Last Admin: 06/07/18 11:08 Dose: 25 mg Amlodipine Besylate (Norvasc) 10 mg PO DAILY [facility] Last Admin: 06/07/18 11:09 Dose: 10 mg Emtricitabine/Tenofovir (Truvada 200 Mg-300 Mg) 1 tab PO DAILY [facility] Last Admin: 06/07/18 11:09 Dose: 1 tab Piperacillin Sod/Tazobactam Sod (Zosyn 3.375 In Ns 100ml) 100 mls @ 200 mls/hr IVPB Q6 [facility]; Protocol Stop: 06/13/18 18:01 Last Admin: 06/07/18 11:11 Dose: 200 mls/hr Linezolid (Zyvox 600mg/300ml D5w) 600 mg in 300 mls @ 200 mls/hr IVPB Q12 [facility]; Protocol Stop: 06/12/18 13:06 Last Admin: 06/06/18 21:54 Dose: 200 mls/hr Daptomycin 590 mg/ Sodium (Chloride) 100 mls @ 200 mls/hr IV Q24H [facility] Stop: 06/12/18 18:01 Losartan Potassium (Cozaar) 50 mg PO DAILY [facility] Last Admin: 06/07/18 11:08 Dose: 50 mg Metoprolol Tartrate (Lopressor) 25 mg PO BID [facility] Last Admin: 06/07/18 11:08 Dose: 25 mg Morphine Sulfate (Morphine) 1 mg IVP Q3H PRN PRN Reason: Pain, moderate (4-7) Last Admin: 06/07/18 11:10 Dose: 1 mg Oxycodone/Acetaminophen (Percocet 10/325 Mg Tab) 1 tab PO TID PRN PRN Reason: Pain, severe (8-10) Last Admin: 06/07/18 02:32 Dose: 1 tab Raltegravir (Isentress) 400 mg PO Q12 [facility]; Protocol Last Admin: 06/07/18 11:08 Dose: 400 mg Tramadol HCl (Ultram) 50 mg PO Q8H PRN PRN Reason: Pain, moderate (4-7) Last Admin: 06/05/18 21:44 Dose: 50 mg - Labs Labs: 06/07/18 07:00 06/07/18 07:00
[2018-06-07] MEDS: Linezolid 600 mg in D5W 300 ml 600 MG/300 ML BAG IVPB SCH ×2 (14:02→21:59)
--- NOTE | 2018-06-07 14:48 | PN ---
DATE: 06/07/2018 SUBJECTIVE: I had a very long talk with Samuel this morning. He is very concerned about his right leg. He feels that the fluid is going up the inside part of his right knee half way to his groin, also the knee is a little more swollen. He is walking on it, he took a shower. It is more swollen, not as hot as when he came in. He is on IV antibiotics for his infected knee. It is very powerful, he might need to have this opened up by a surgeon if that is the case and that is the recommendation. I feel we should send him to a different facility that is more equipped to handle that kind of procedure at this time. I discussed this with our surgeon and our orthopedic surgeon and they both agreed that if he does need to have this knee opened up, he should go to a more subspecialty facility. MEDICATIONS: He is currently on IV antibiotics as per his recommendations. He is on Cozaar, Elavil, Isentress, Lopressor, morphine, Norvasc, Percocet, Truvada, Ultram, Zosyn and Zyvox. He has been on Merrem, he has been on daptomycin. He has been on IV antibiotics for four to five weeks so far. LABORATORY DATA: His white count has been good while he has been in the hospital, it is 8.9; 12.2 hemoglobin; 37 hematocrit with 302 platelets. They had been very high in the past, it has been over 15 up to 20+ of a white count, so it is definitely improved. He has 139 sodium, potassium 4.1, BUN is 18, creatinine 0.6. GFR is greater than 60, well improved with his kidney function. Sugar is 95, calcium is 9.2, total bili is 0.8, AST is 38, ALT is 48, alk phos is 40, total troponin is 38. His C-reactive protein is greater than 15, his procalcitonin level is low at 0.12, protein is 7.5. On micro, he still has no growth and there is no real free fluid and in the blood cultures. ASSESSMENT AND PLAN: He is human immunodeficiency virus positive, which could be throwing a curve into our treatment. I think at the rate we are going with a low worsening of the knee with swelling and hardness, this might need to be opened up and if the repeat CAT scan shows any worsening, I think we will be transferring him tomorrow to [facility] or a facility that has got more quality and maybe a higher subspecialty of a surgical evaluation of that knee and he is here for septic right knee. Discussed at length with Samuel. Rogelio Shirley DO
[2018-06-07] MEDS ORDERED: DAPTOmycin 500 mg Inj (Cubicin) IV SCH (18:00)
[2018-06-08] MEDS: Piperacillin/Tazobact 3.375 gm 100 ML IVPB SCH ×4 (00:02→18:43)
[2018-06-08] MEDS: Morphine 2 mg/ml ISec IVP PRN ×4 (00:29→22:02)
[2018-06-08] MEDS: Oxycodone/Acetaminophen 10/325 mg Tab PO PRN (06:19)
[2018-06-08 07:15] LABS: HEMOGLOBIN 13.3 g/dL (14.0-18.0); MEAN CELL VOLUME 82.9 fl (80.0-105.0); MEAN CORPUSCULAR HEMOGLOBIN 28.1 pg (25.0-35.0); MEAN CORPUSCULAR HGB CONC 33.8 g/dl (31.0-37.0); MEAN PLATELET VOLUME 9.1 fl (7.0-11.0); RBC 4.74 10^6/uL (3.5-6.1); RED CELL DISTRIBUTION WIDTH 12.9 % (11.5-14.5); WHITE BLOOD COUNT 9.4 10^3/ul (4.5-11.0)
[2018-06-08 07:40] LABS: ALBUMIN 4.1 g/dL (3.0-4.8); ALT/SGPT 41 U/L (7-56); AST/SGOT 28 U/L (17-59); BLOOD UREA NITROGEN 18 mg/dL (7-21); CALCIUM 9.2 mg/dL (8.4-10.5); GFR NON-AFRICAN AMERICAN > 60
--- NOTE | 2018-06-08 08:14 | CP.PCM.PN ---
Subjective - Date & Time of Evaluation Date of Evaluation: 06/08/18 Time of Evaluation: 08:11 - Subjective Subjective: General Surgery Progress Note for Dr. Quiles Patient seen and examined at bedside. No acute events overnight. Patient is complaining that his right knee is still swollen. Denies fevers, chills, chest pain, SOB, or any other complaints at this time. Objective - Vital Signs/Intake and Output Vital Signs (last 24 hours): Temp Pulse Resp BP Pulse Ox 98.2 F 98 H 20 145/89 97 06/07/18 22:00 06/07/18 22:00 06/07/18 22:00 06/07/18 22:00 06/07/18 22:00 Intake and Output: 06/08/18 06/08/18 06:59 18:59 Intake Total 500 Balance 500 - Medications Medications: Current Medications Amitriptyline HCl (Elavil) 25 mg PO DAILY [facility] Last Admin: 06/07/18 11:08 Dose: 25 mg Amlodipine Besylate (Norvasc) 10 mg PO DAILY [facility] Last Admin: 06/07/18 11:09 Dose: 10 mg Emtricitabine/Tenofovir (Truvada 200 Mg-300 Mg) 1 tab PO DAILY [facility] Last Admin: 06/07/18 11:09 Dose: 1 tab Piperacillin Sod/Tazobactam Sod (Zosyn 3.375 In Ns 100ml) 100 mls @ 200 mls/hr IVPB Q6 [facility]; Protocol Stop: 06/13/18 18:01 Last Admin: 06/08/18 06:00 Dose: 200 mls/hr Linezolid (Zyvox 600mg/300ml D5w) 600 mg in 300 mls @ 200 mls/hr IVPB Q12 [facility]; Protocol Stop: 06/12/18 13:06 Last Admin: 06/07/18 21:59 Dose: 200 mls/hr Losartan Potassium (Cozaar) 50 mg PO DAILY [facility] Last Admin: 06/07/18 11:08 Dose: 50 mg Metoprolol Tartrate (Lopressor) 25 mg PO BID [facility] Last Admin: 06/07/18 18:10 Dose: 25 mg Morphine Sulfate (Morphine) 1 mg IVP Q3H PRN PRN Reason: Pain, moderate (4-7) Last Admin: 06/08/18 00:29 Dose: 1 mg Oxycodone/Acetaminophen (Percocet 10/325 Mg Tab) 1 tab PO TID PRN PRN Reason: Pain, severe (8-10) Last Admin: 06/08/18 06:19 Dose: 1 tab Raltegravir (Isentress) 400 mg PO Q12 [facility]; Protocol Last Admin: 06/07/18 22:00 Dose: 400 mg Tramadol HCl (Ultram) 50 mg PO Q8H PRN PRN Reason: Pain, moderate (4-7) Last Admin: 06/05/18 21:44 Dose: 50 mg - Labs Labs: 06/08/18 06:30 06/08/18 06:30 - Constitutional Appears: Well, Non-toxic, No Acute Distress - Head Exam Head Exam: ATRAUMATIC, NORMOCEPHALIC - Eye Exam Eye Exam: Normal appearance - ENT Exam ENT Exam: Mucous Membranes Moist - Respiratory Exam Respiratory Exam: NORMAL BREATHING PATTERN. absent: Accessory Muscle Use, Respiratory Distress - Cardiovascular Exam Cardiovascular Exam: RRR - GI/Abdominal Exam GI & Abdominal Exam: Soft. absent: Distended, Guarding, Tenderness - Extremities Exam Additional comments: Right lower extremity and right knee more edematous compared to the left. - Neurological Exam Neurological Exam: Alert, Awake, Oriented x3 - Psychiatric Exam Psychiatric exam: Normal Affect, Normal Mood - Skin Skin Exam: Dry, Intact, Normal Color, Warm Assessment and Plan - Assessment and Plan (Free Text) Assessment: Patient is a 57 year old male with right lower extremity celulitis. Plan: - Continue IV Antibiotics - No surgical management at this time - Patient is requesting to be transferred to [facility] Discussed case with Dr. Kb Strong DO PGY-1
--- NOTE | 2018-06-08 08:17 | PROCN ---
Copied To: Fam Webb DO Attending MD: Fam Webb DO DATE: 06/05/2018 Patient was seen yesterday and now today to do attempted aspiration of his right knee for previous septic knee history with MRSA infection. Still not where he wants to be, still some pain, the bogginess of his right knee is present so we attempted to aspirate with an 18-gauge needle after we prepped and draped. We did it from the medial side, I used to go laterally, wanted me to go medial and so, we did that after infiltrating with some Novocain to numb the skin, waited several minutes, then put in an 18-gauge needle in the direction of the synovial fluid. We got out just blood, but I sent that to the lab also as a perifascial tissue fluid, so we will see what that is. I will await for the culture to return, it was quite painful for him to endeavor that. We will see if anything grows from that specimen. Fam Webb DO
--- NOTE | 2018-06-08 10:46 | PN ---
DATE: 06/08/2018 SUBJECTIVE: He is resting comfortably in bed. He stayed up his leg yesterday and last night, so now his leg is much better. He is still on IV antibiotics, Zosyn and Zyvox, also Ultram, Truvada, Percocet, Norvasc, morphine, Lopressor, Isentress, Elavil and Cozaar. PHYSICAL EXAMINATION: VITAL SIGNS: He has a 99 temp, 92 pulse, 133/81 blood pressure, 20 respiratory rate, 94% O2 sat on room air. HEENT: His head is atraumatic, normocephalic. HEART: Regular rate. LUNGS: Decreased breath sounds, but clear. ABDOMEN: Soft. EXTREMITIES: The right knee is a little bit swollen, not as hot, not as red. It is definitely improved since yesterday when he was up on it all day. He is elevating it and resting it. I am more in the process of trying to find a way to transfer him to [facility] or another facility because we feel that needs to be opened up surgically at this time. Especially, yesterday when it was very swollen, but today it is a little bit better. I am hoping he stays off it and keeps it elevated that was his instruction. LABORATORY DATA: He has a 9.4 white count, 13.3 hemoglobin, 39.3 hematocrit with 338 platelets. He has a 139 sodium, potassium 4.1, BUN 18, creatinine 0.7, GFR is greater than 60, sugar is 120, calcium is 9.2, total bili is 0.6, AST is 28, ALT is 41, alk phos 89, total protein is 8. ASSESSMENT AND PLAN: He is on IV antibiotics. He is being seen by Infectious Disease, Orthopedic Surgery. I am hoping to see if he can get to a different facility for possible opening up and washing out and cleaning out and I have called 6 physicians so far at [facility] that is the place he wants to go to, the patient and it is hard time getting people to accept them at this time. Still working on it and he is here for a septic right knee, on antibiotics. Rogelio Shirley DO [facility] # [id number]
[2018-06-08] MEDS: Emtricitabine-Tenofovir 200 mg-300 mg Tab PO SCH (10:58)
[2018-06-08] MEDS: Linezolid 600 mg in D5W 300 ml 600 MG/300 ML BAG IVPB SCH ×2 (10:59→22:03)
[2018-06-08] MEDS ORDERED: Gadodiamide 287 MG/ML VIAL (20ML) IV ONE (13:12)
--- NOTE | 2018-06-08 14:27 | MRI ---
Date of service: 06/08/2018 PROCEDURE: MRI of the right lower extremity HISTORY: r/o tummor. Patient with MRSA infection. Pain and firmness in the calf COMPARISON: TECHNIQUE: The study was modified to evaluate the region of the right calf. The study is performed in multiple planes using multiple pulse sequences. Postcontrast imaging was performed with 20 cc of Omniscan. FINDINGS: Large fluid collections are seen along the medial head of the gastrocnemius muscle consistent with Cox cysts. The largest cyst measures 9.5 cm length by 3.4 cm diameter. The smaller cyst adjacent to the knee joint measures 5.8 x 2 cm. There is some enhancement of the wall of the cysts most likely due to chronic inflammation. Infection cannot be excluded. There is a moderate-sized joint effusion. There is subcutaneous edema surrounding the lower leg consistent with cellulitis versus passive edema. The exam of the knee joint is limited but there appears to be a tear and degeneration of the lateral meniscus IMPRESSION: Large fluid collections extending from the knee joint into the medial head of the gastrocnemius muscle consistent with Cox cysts. Subcutaneous edema consistent with cellulitis. No evidence of osteomyelitis.
--- NOTE | 2018-06-08 14:50 | CP.PCM.PN ---
Subjective - Date & Time of Evaluation Date of Evaluation: 06/08/18 Time of Evaluation: 11:15 - Subjective Subjective: Comfortable in bed, no fevers, but still with some pain in the right knee and leg but a little better, no nausea, no diarrhea. Patient wants to transfer to another facility to further evaluate his knee and to see if he needs surgery. Objective - Vital Signs/Intake and Output Vital Signs (last 24 hours): Temp Pulse Resp BP Pulse Ox 99 F 92 H 20 136/84 94 L 06/08/18 06:00 06/08/18 06:00 06/08/18 06:00 06/08/18 10:58 06/08/18 06:00 Intake and Output: 06/08/18 06/08/18 06:59 18:59 Intake Total 500 Balance 500 - Medications Medications: Current Medications Amitriptyline HCl (Elavil) 25 mg PO DAILY [facility] Last Admin: 06/08/18 10:58 Dose: 25 mg Amlodipine Besylate (Norvasc) 10 mg PO DAILY [facility] Last Admin: 06/08/18 10:58 Dose: 10 mg Emtricitabine/Tenofovir (Truvada 200 Mg-300 Mg) 1 tab PO DAILY [facility] Last Admin: 06/08/18 10:58 Dose: 1 tab Piperacillin Sod/Tazobactam Sod (Zosyn 3.375 In Ns 100ml) 100 mls @ 200 mls/hr IVPB Q6 [facility]; Protocol Stop: 06/13/18 18:01 Last Admin: 06/08/18 11:00 Dose: 200 mls/hr Linezolid (Zyvox 600mg/300ml D5w) 600 mg in 300 mls @ 200 mls/hr IVPB Q12 [facility]; Protocol Stop: 06/12/18 13:06 Last Admin: 06/08/18 10:59 Dose: 200 mls/hr Losartan Potassium (Cozaar) 50 mg PO DAILY [facility] Last Admin: 06/08/18 10:57 Dose: 50 mg Metoprolol Tartrate (Lopressor) 25 mg PO BID [facility] Last Admin: 06/08/18 10:58 Dose: 25 mg Morphine Sulfate (Morphine) 1 mg IVP Q3H PRN PRN Reason: Pain, moderate (4-7) Last Admin: 06/08/18 11:07 Dose: 1 mg Oxycodone/Acetaminophen (Percocet 10/325 Mg Tab) 1 tab PO TID PRN PRN Reason: Pain, severe (8-10) Last Admin: 06/08/18 06:19 Dose: 1 tab Raltegravir (Isentress) 400 mg PO Q12 [facility]; Protocol Last Admin: 06/08/18 10:58 Dose: 400 mg Tramadol HCl (Ultram) 50 mg PO Q8H PRN PRN Reason: Pain, moderate (4-7) Last Admin: 06/05/18 21:44 Dose: 50 mg - Labs Labs: 06/08/18 06:30 06/08/18 06:30 - Constitutional Appears: Non-toxic, No Acute Distress - Extremities Exam Additional comments: right knee swelling, but decreased erythema, swelling noted also on the posterior aspect of the right knee as well as proximal calf area but it has decreased a little Assessment and Plan - Assessment and Plan (Free Text) Plan: Assessment continuing treatment for septic arthritis of the right knee with MRSA (has been on antibiotics since 05/06/2018), had been on Daptomycin, with re-accumulation of Cox's cyst (it was drained on 05/26/2018) - all repeat cultures from the knee and Cox's cyst have been negative including 06/05/2018 synovial fluid (after MRSA was obtained on patient's initial presentation 05/06/2018) chronic HIV infection Plan reviewed CT leg and now MRI of leg and knee today showing Cox's cysts, some joint effusion passive edema or cellulitis of right leg area - will continue Zyvox and Zosyn; re-checked blood cx and it is negative patient asking to be screened for parasites and we are awaiting stool for O and P Ortho on the case and patient is being referred to a specialist working in [facility] for possible drainage of the Cox's cyst - would recommend surgery for the knee and Cox's cyst since this has recurred and re-accumulated - as discussed with Dr. Shirley, Dr. Shirley is arranging transfer to a more specialized facility for this - Dr. Shirley discussed this with Dr. Webb as well discussed with patient at length proximal calf area also with erythema and swelling, which is likely related to the Cox's cyst and as seen on MRI, could be passive edema or cellulitis I have also spoken with Dr. Mastromonaco who also recommends the patient to go to a more specialized facility and has in fact given contact information of a physician in [facility] for this, given to the patient patient has been on proper antibiotic coverage for MRSA septic arthritis initially with Daptomycin and now on Linezolid and all subsequent synovial fluid and Cox's cyst fluid cultures are negative, meaning there is clearance of the bacteria from the synovial fluid with antibiotic therapy; Zosyn was added pending the final culture results of the synovial fluid 06/05/2018) (which is still negative) discussed with patient - he was asking about combination antibiotics but the literature on combination antibiotics for MRSA has been in cases where clearance of bacteria was difficult to achieve (in this patient's case, there is evidence of bacterial clearance from the synovial fluid) - also explained to patient that combination antibiotics might increase change of adverse events with antibiotics and should be used if there was evidence of non-clearance of bacteria from fluid patient also asked if he may lose his leg - I told patient that I do not think so, but patient should continue to be monitored and should see another medical or surgical instrument maker to see how to resolve the Cox's cysts, and that would be the call of the medical or surgical instrument maker would recommend to continue antibiotics for 4-6 weeks from time of initial diagnosis of septic arthritis (2017) Patient continues to be afebrile and WBC count has normalized which are good signs that infection is non-systemic and that patient is getting better continue cART for chronic HIV infection (well-controlled)
--- NOTE | 2018-06-08 14:59 | MRI ---
Date of service: 06/08/2018 PROCEDURE: MRI of the right thigh with and without contrast HISTORY: right thigh COMPARISON: TECHNIQUE: MRI of the right thigh was performed in multiple planes using multiple pulse sequences including postcontrast imaging. The study was performed in combination with MRI of the right tibia and fibula. 20 cc of Omniscan FINDINGS: There is subcutaneous edema around the distal thigh. There is no evidence of a discrete abscess collection. There is no marrow edema or enhancement to suggest osteomyelitis. There is no muscular edema or enhancement. IMPRESSION: Negative study
--- NOTE | 2018-06-08 22:07 | PN ---
DATE: 06/08/2018 SUBJECTIVE: A 57-year-old male. It was at [facility] now where the patient, was able to be gotten an appointment with Dr. Mihai Ruiz general orthopedic doctor, so I want him to see Dr. Ruiz for evaluation of the enlarged new popliteal cyst of his right leg where it is resolving and recovering from the MRSA infection that is approximately [address] 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 Ruiz at [phone] for further evaluation and treatment. They were kind enough to say we would admit him to the hospital at [facility], but the patient really after all that he does not want that, he wanted another hospital but I did not know anyone else with Dr. Ruiz's caliber that could handle a problem like this, so I refused to send anybody that I do not know, that would be Dr. Ruiz if he wants to go for surgery, that did the surgery on his leg that is fine or get his advice but at least that doctor would know other doctors, but I do not know any doctors in [place] or the [facility] hospitals. The main one unfortunately is the best one is at [facility] ,the chief services, Dr. iMhai Ruiz but he seems to refuse to go, even though I could get a chart copy than the x-rays done. Did have an MRI with and without contrast. So, I appreciate if you could go there but he does not want to go so, he just may sign out and find his own way there, but I do not know any other doctors. So, we will see what the next stage is, but he has a liberty to go to be admitted to [facility] under the service of Dr. Mihai Ruiz but at this time, he refuses that. Fam Webb DO
[2018-06-08 23:28] VITALS: TEMP 98
[2018-06-09] MEDS: Piperacillin/Tazobact 3.375 gm 100 ML IVPB SCH ×4 (00:41→19:50)
[2018-06-09] MEDS: Oxycodone/Acetaminophen 10/325 mg Tab PO PRN ×3 (00:47→19:22)
[2018-06-09 07:02] LABS: HEMOGLOBIN 12.5 g/dL (14.0-18.0); MEAN CELL VOLUME 82.9 fl (80.0-105.0); MEAN CORPUSCULAR HEMOGLOBIN 27.4 pg (25.0-35.0); MEAN CORPUSCULAR HGB CONC 33.1 g/dl (31.0-37.0); MEAN PLATELET VOLUME 8.8 fl (7.0-11.0); RBC 4.56 10^6/uL (3.5-6.1); RED CELL DISTRIBUTION WIDTH 12.9 % (11.5-14.5); WHITE BLOOD COUNT 8.4 10^3/ul (4.5-11.0)
[2018-06-09 07:34] LABS: ALBUMIN 3.8 g/dL (3.0-4.8); ALT/SGPT 41 U/L (7-56); AST/SGOT 31 U/L (17-59); BLOOD UREA NITROGEN 13 mg/dL (7-21); CALCIUM 9.2 mg/dL (8.4-10.5); GFR NON-AFRICAN AMERICAN > 60
[2018-06-09 07:57] VITALS: RESP 20; O2SAT 97
[2018-06-09] MEDS: Linezolid 600 mg in D5W 300 ml 600 MG/300 ML BAG IVPB SCH (10:22)
[2018-06-09] MEDS: Emtricitabine-Tenofovir 200 mg-300 mg Tab PO SCH (10:22)
[2018-06-09] MEDS: Morphine 2 mg/ml ISec IVP PRN (10:56)
[2018-06-09 19:33] VITALS: BP 129/84; PULSE 87
--- NOTE | 2018-06-10 03:38 | PN ---
DATE: 06/09/2018 SUBJECTIVE: The patient is in bed, was seen earlier this morning in room 564. PHYSICAL EXAMINATION VITAL SIGNS: Temperature of 98, blood pressure is 129/80, respiratory rate of 18. HEENT: Examination of HEENT is unremarkable. NECK: Supple. LUNGS: Have decreased breath sounds. HEART: Normal S1, S2. ABDOMEN: Soft. LABORATORY DATA: Reviewed. ASSESSMENT AND PLAN: This is a 57-year-old male with a history of recent admission approximately a month ago with methicillin-resistant Staphylococcus aureus septic arthritis, treated with daptomycin, returned with a rupture of Cox's cyst. Repeat cultures of the synovial fluid have been negative and the patient had an MRI of the extremity yesterday which is essentially unremarkable study. No evidence of osteomyelitis. Also had an MRI of the knee. There is a large fluid collection extending from the knee joint to the medial end of the gastrocnemius muscle, consistent with Cox's cyst. No evidence of osteomyelitis. The patient to be transferred to another hospital and facility for further care. Herb Shell MD
--- NOTE | 2018-06-10 03:58 | DS ---
SUBJECTIVE: He is here for a right infected knee. 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 He is on Cozaar, Elavil, Isentress, Lopressor, morphine, Norvasc, Percocet, Truvada, Ultram, Zosyn, and Zyvox. PHYSICAL EXAMINATION: VITAL SIGNS: He has 98 temperature, 81 pulse, 125/81 blood pressure, 20 respiratory rate, 97% O2 sat on room air. HEENT: Head is atraumatic, normocephalic. HEART: Regular rate. LUNGS: Clear to auscultation. ABDOMEN: Soft. EXTREMITIES: Right leg is little swollen today, not red, little warm. There is some fullness underneath the leg. We are working on getting him to [place] now under Dr. Francisco Javier Sprague at [facility] and David is in charge of the transfer, , and/or case management social worker, and hopefully we can arrange after today for them to do further treatment on the knee and possible surgery. LABORATORY DATA: He has 8.4 white count, 12.5 hemoglobin, 37.8 hematocrit with 289 platelets. Sodium 140, potassium 4.4. BUN 13, creatinine 0.7. GFR is greater than 60. Sugar is 107. Calcium is 9.2. Total bili is 0.6, AST is 31, ALT is 41, alk phos 84, total protein is 7.5. He had yeast in a wound culture. He is being seen by Infectious Disease, Orthopedics, and Surgery. He had an MRI of the lower extremity, negative study, and MRI of the knee showed large fluid collection extending from the knee joint to the medial head of the gastrocnemius muscle, consistent with Cox cyst, subcutaneous edema consistent with cellulitis. No evidence of osteo. I am hoping that he can go to [facility] to possibly have it opened up by the surgeons there, and hopefully we can get that arranged for today. He will have Rogelio Shirley DO MTDAdrianne
--- NOTE | 2018-06-10 09:03 | PN ---
DATE: 06/09/2018 was examined and discussed with Dr. Webb. 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 Presently, Dr. Webb is trying to make arrangements to transfer the patient to a oncologist in [place]. I believe the patient needs to have the operation for resection of this Cox's cyst. Dr. Webb is uncomfortable doing it and I have never done it. So I think a transfer is very appropriate. Lester Quiles MD
== END 2018-06-09 21:56 | disposition short-term general hospital (02) | DRG 603 ==
LOC: ED 03:03 → ERH 06:14 → OBSVTOIN 09:28 → 5RNO 10:23
PROVIDERS: ADMIT Family Medicine; ATTEND Family Medicine
PROC: 0S9C3ZX Drainage of Right Knee Joint, Percutaneous Approach, Diagnostic (ICD-10-PCS; principal; 2018-06-05)
DX: L03.115 Cellulitis of right lower limb (principal); B20 Human immunodeficiency virus [HIV] disease; R65.10 Systemic inflammatory response syndrome (SIRS) of non-infectious origin without acute organ dysfunction; M00.061 Staphylococcal arthritis, right knee; M71.21 Synovial cyst of popliteal space [Baker], right knee; B95.62 Methicillin resistant Staphylococcus aureus infection as the cause of diseases classified elsewhere; E78.5 Hyperlipidemia, unspecified; I10 Essential (primary) hypertension; K21.9 Gastro-esophageal reflux disease without esophagitis; Z96.642 Presence of left artificial hip joint